=== PATIENT | male | born 1980 | race American Indian/Alaskan Native ===

== ENCOUNTER 2016-11-13 13:33 | Inpatient (IN) | payer MEDICAID, SELFPAY ==
--- NOTE | 2016-11-13 13:36 | EDM.PDOC ---
ED HPI GENERAL MEDICAL PROBLEM - General Chief Complaint: Chest Pain Stated Complaint: BY AMBULANCE Time Seen by Provider: 11/13/16 13:36 Source of Information: Reports: Patient, EMS, RN, RN notes reviewed - History of Present Illness INITIAL COMMENTS - FREE TEXT/NARRATIVE: Arrives from home by ambulance with c/o chest pain. EMS report normal 12 lead EKG in field, and gave aspirin 324mg x1 and SL NTG 0.4mg x3 without relief. Pt reports heavy alcohol drinking x3 straight days and last drank yesterday evening. Today pt reports onset of generalized shakiness, nausea, vomiting, rapid breathing with numbness at the lips and B/L hands, and sharp left upper chest pain. Denies Hx of alcohol withdrawals or Hx of cardiac disease. Admits to Hx of binge alcohol abuse, and anxiety with panic attacks. Denies injury, LOC , blood in emesis or stool, fever, chills, or cough. 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 [No Known Home Meds] 10/16/15 [History] Past Medical History - Past Health History Medical/Surgical History: Denies Medical/Surgical History Other HEENT History: Infection behind his right ear. Other Musculoskeletal History: old left hand fractures Other Dermatologic History: Infection behind his right ear. - Past Surgical History Other Musculoskeletal Surgeries/Procedures:: left hand surgery for fracture repair. Social & Family History - Family History Family Medical History: Noncontributory - Tobacco Use Smoking Status *Q: Never Smoker Years of Tobacco use: 10 Used Tobacco, but Quit: No Second Hand Smoke Exposure: No - Caffeine Use Caffeine Use: Reports: Coffee, Soda - Alcohol Use Alcohol Use History: Yes Days Per Week of Alcohol Use: 1 Number of Drinks Per Day: 6 Total Drinks Per Week: 6 Alcohol Use in Last Twelve Months: Yes Alcohol Use Frequency: Binges - Recreational Drug Use Recreational Drug Use: No - Living Situation & Occupation Living situation: Reports: with family ED ROS GENERAL - Review of Systems Review Of Systems: ROS reveals no pertinent complaints other than HPI. ED EXAM, GENERAL - Physical Exam Exam: See Below Exam Limited By: No limitations General Appearance: alert, WD/WN, no apparent distress, anxious, obese Eye Exam: bilateral eye: EOMI, nystagmus, PERRL Ears: normal external exam, normal canal, hearing grossly normal Nose: normal inspection, normal mucosa, no blood Throat/Mouth: Normal inspection, Normal lips, Normal teeth, Normal gums, Normal oropharynx, Normal voice, No airway compromise, Other (dry oral membranes) Head: atraumatic, normocephalic Neck: normal inspection, supple, non-tender, full range of motion. No: lymphadenopathy (L), lymphadenopathy (R) Respiratory/Chest: no respiratory distress, lungs clear, normal breath sounds, no accessory muscle use, chest non-tender Cardiovascular: normal peripheral pulses, regular rate, rhythm, no edema, no gallop, no JVD, no murmur, no rub GI/Abdominal: normal bowel sounds, soft, no distention, no abnormal bruit, tender (epigastric region). No: guarding, rigid, rebound (Male) Exam: Deferred Rectal (Males) Exam: Deferred Back Exam: normal inspection, full range of motion. No: CVA tenderness (L), CVA tenderness (R) Extremities: normal inspection, normal range of motion, non-tender, normal capillary refill, no pedal edema Neurological: alert, oriented, CN II-XII intact, normal cognition, normal gait, no motor/sensory deficits, other (fine tremor of B/L upper extremities) Psychiatric: anxious Skin Exam: Warm, Dry, Intact, Normal color, No rash EKG INTERPRETATION EKG Date: 11/13/16 Time: 13:44 Rhythm: other (SR) Rate (beats/min): 88 Alanson: normal QRS: other (small Q-wave in lead III) ST-T: other (isolated flat T wave in lead III) QT: prolonged (borderline) Comparison: NA - no prior EKG Course - Vital Signs Last Recorded V/S: Last Vital Signs Temp 36.2 C 11/13/16 13:49 Pulse 80 11/13/16 13:49 Resp 24 H 11/13/16 13:49 BP 129/84 11/13/16 13:49 Pulse Ox 98 11/13/16 13:49 - Orders/Labs/Meds Orders: Active Orders 24 hr Category Date Time Status EKG 12 Lead [EKG Documentation Completion] [RC] STAT Care 11/13/16 13:36 Active Peripheral IV Care [RC] . DIRECTED Care 11/13/16 13:41 Active Chest w Cont [CT] Stat Exams 11/13/16 14:38 Taken Enoxaparin [Lovenox] Med 11/13/16 15:53 Once 100 mg SUBCUT ONETIME ONE Sodium Chloride 0.9% [Saline Flush] Med 11/13/16 13:41 Active 10 ml FLUSH ASDIRECTED PRN Peripheral IV Insertion Adult [OM.PC] Stat Oth 11/13/16 13:40 Ordered Medication Orders Sodium Chloride (Saline Flush) 10 ml FLUSH ASDIRECTED PRN PRN Reason: Keep Vein Open Last Admin: 11/13/16 14:01 Dose: 10 ml Labs: Laboratory Tests 11/13/16 11/13/16 11/13/16 Range/Units 13:43 13:43 13:43 WBC 10.8 H (5.0-10.0) 10^3/uL RBC 4.84 (4.6-6.2) 10^6/uL Hgb 13.8 L (14.0-18.0) g/dL Hct 40.7 (40.0-54.0) % MCV 84.1 (80-100) fL MCH 28.5 (27.0-34.0) pg MCHC 33.9 (33.0-35.0) g/dL Plt Count 277 (150-450) 10^3/uL Neut % (Auto) 75.8 H (42.2-75.2) % Lymph % (Auto) 16.0 L (20.5-50.1) % [place] % (Auto) 7.6 (2-8) % Eos % (Auto) 0.1 L (1.0-3.0) % Baso % (Auto) 0.5 (0.0-1.0) % D-Dimer, Quantitative 1110 H (0-400) ng/mL Sodium 135 (135-145) mmol/L Potassium 3.5 L (3.6-5.0) mmol/L Chloride 101 (101-111) mmol/L Carbon Dioxide 23.0 (21.0-31.0) mmol/L Anion Gap 14.5 BUN 6 L (7-18) mg/dL Creatinine 0.9 (0.6-1.3) mg/dL Est Cr Clr Drug Dosing TNP Estimated GFR (MDRD) > 60 BUN/Creatinine Ratio 6.66 Glucose 102 (74-105) mg/dL Calcium 9.0 (8.4-10.2) mg/dl Magnesium 1.5 L (1.8-2.5) mg/dL Total Bilirubin 1.0 (0.2-1.0) mg/dL AST 37 (10-42) IU/L ALT 30 (10-60) IU/L Alkaline Phosphatase 109 (42-121) IU/L Troponin I < 0.02 (0.00-0.02) ng/ml Total Protein 7.4 (6.7-8.2) g/dl Albumin 3.9 (3.2-5.5) g/dl Globulin 3.5 Albumin/Globulin Ratio 1.11 Amylase 75 (28-100) U/L Lipase 23 (22-51) U/L Urine Color (YELLOW) Urine Appearance (CLEAR) Urine pH (5.0-9.0) Ur Specific Kendall (1.005-1.030) Urine Protein (NEGATIVE) Urine Glucose (UA) (NEGATIVE) Urine Ketones (NEGATIVE) Urine Occult Blood (NEGATIVE) Urine Nitrite (NEGATIVE) Urine Bilirubin (NEGATIVE) Urine Urobilinogen (0.2-1.0) mg/dL Ur Leukocyte Esterase (NEGATIVE) Urine RBC /HPF Urine WBC (0-5/HPF) /HPF Urine Mucus /LPF Urine Other Urine Opiates Screen (NEGATIVE) Ur Oxycodone Screen (NEGATIVE) Urine Methadone Screen (NEGATIVE) Ur Barbiturates Screen (NEGATIVE) U Tricyclic Antidepress (NEGATIVE) Ur Phencyclidine Scrn (NEGATIVE) Ur Amphetamine Screen (NEGATIVE) U Methamphetamines Scrn (NEGATIVE) Urine MDMA Screen (NEGATIVE) U Benzodiazepines Scrn (NEGATIVE) Urine Cocaine Screen (NEGATIVE) U Marijuana (THC) Screen (NEGATIVE) Ethyl Alcohol < 5 mg/dL 11/13/16 11/13/16 Range/Units 13:57 13:57 WBC (5.0-10.0) 10^3/uL RBC (4.6-6.2) 10^6/uL Hgb (14.0-18.0) g/dL Hct (40.0-54.0) % MCV (80-100) fL MCH (27.0-34.0) pg MCHC (33.0-35.0) g/dL Plt Count (150-450) 10^3/uL Neut % (Auto) (42.2-75.2) % Lymph % (Auto) (20.5-50.1) % [place] % (Auto) (2-8) % Eos % (Auto) (1.0-3.0) % Baso % (Auto) (0.0-1.0) % D-Dimer, Quantitative (0-400) ng/mL Sodium (135-145) mmol/L Potassium (3.6-5.0) mmol/L Chloride (101-111) mmol/L Carbon Dioxide (21.0-31.0) mmol/L Anion Gap BUN (7-18) mg/dL Creatinine (0.6-1.3) mg/dL Est Cr Clr Drug Dosing Estimated GFR (MDRD) BUN/Creatinine Ratio Glucose (74-105) mg/dL Calcium (8.4-10.2) mg/dl Magnesium (1.8-2.5) mg/dL Total Bilirubin (0.2-1.0) mg/dL AST (10-42) IU/L ALT (10-60) IU/L Alkaline Phosphatase (42-121) IU/L Troponin I (0.00-0.02) ng/ml Total Protein (6.7-8.2) g/dl Albumin (3.2-5.5) g/dl Globulin Albumin/Globulin Ratio Amylase (28-100) U/L Lipase (22-51) U/L Urine Color Dark yellow (YELLOW) Urine Appearance Clear (CLEAR) Urine pH 7.0 (5.0-9.0) Ur Specific Kendall 1.020 (1.005-1.030) Urine Protein 100 H (NEGATIVE) Urine Glucose (UA) Negative (NEGATIVE) Urine Ketones Trace H (NEGATIVE) Urine Occult Blood Trace-intact H (NEGATIVE) Urine Nitrite Negative (NEGATIVE) Urine Bilirubin Negative (NEGATIVE) Urine Urobilinogen 1.0 (0.2-1.0) mg/dL Ur Leukocyte Esterase Negative (NEGATIVE) Urine RBC 0-5 /HPF Urine WBC 0-5 (0-5/HPF) /HPF Urine Mucus Many H /LPF Urine Other Urine Opiates Screen Negative (NEGATIVE) Ur Oxycodone Screen Negative (NEGATIVE) Urine Methadone Screen Negative (NEGATIVE) Ur Barbiturates Screen Negative (NEGATIVE) U Tricyclic Antidepress Negative (NEGATIVE) Ur Phencyclidine Scrn Negative (NEGATIVE) Ur Amphetamine Screen Negative (NEGATIVE) U Methamphetamines Scrn Positive H (NEGATIVE) Urine MDMA Screen Negative (NEGATIVE) U Benzodiazepines Scrn Positive H (NEGATIVE) Urine Cocaine Screen Negative (NEGATIVE) U Marijuana (THC) Screen Positive H (NEGATIVE) Ethyl Alcohol mg/dL Meds: Medications Generic Name Dose Route Start Last Admin Trade Name Freq PRN Reason Stop Dose Admin Sodium Chloride 10 ml 11/13/16 13:41 11/13/16 14:01 Saline Flush FLUSH 10 ml ASDIRECTED PRN Administration Keep Vein Open Discontinued Medications Generic Name Dose Route Start Last Admin Trade Name Freq PRN Reason Stop Dose Admin Multivitamins/Minerals 10 ml/ 1,011.2 mls @ 999 mls/hr 11/13/16 13:41 14:01 Thiamine HCl 100 mg/ Folic IV 11/13/16 14:41 999 mls/hr Acid 1 mg/ Lactated Ringer's .BOLUS ONE Administration Iopamidol 100 ml 11/13/16 14:37 Isovue-370 (76%) IVPUSH 11/13/16 14:38 ONETIME ONE Lorazepam 1 mg 11/13/16 13:42 11/13/16 14:00 Ativan IVPUSH 11/13/16 13:43 1 mg ONETIME ONE Administration Ondansetron HCl 4 mg 11/13/16 13:42 11/13/16 14:00 Zofran IV 11/13/16 13:43 4 mg ONETIME ONE Administration - Radiology Interpretation Free Text/Narrative:: CXR: no acute C/Pulm. process. CT Chest PE eval: mod.-large B/L PE, see Rad. report. - Re-Assessments/Exams Free Text/Narrative Re-Assessment/Exam: 11/13/16 14:58 I explained the exam findings, results of all diagnostic tests, working diagnosis, and any potential or additionally considered diagnoses, treatment/ disposition plan, self/home care instructions, rational for the diagnosis/ treatment plan/disposition plan, anticipated course of illness, and follow up instructions to the pt and/or pts family or guardian. The pt and/or pts family or guardian acknowledges understanding of the above explanation(s), and of the signs and symptoms which should prompt the return of the pt to the ER should those or any other concerning symptoms develop. Departure - Departure Time of Disposition: 15:57 (admit to Dr. Schroeder) Disposition: Admitted As Inpatient 64 Condition: serious Clinical Impression: Alcohol abuse, Polysubstance abuse Pulmonary emboli Qualifiers: Pulmonary embolism type: other Chronicity: acute Acute cor pulmonale presence: without acute cor pulmonale Qualified Code(s): I26.99 - Other pulmonary embolism without acute cor pulmonale Forms: ED Department Discharge - My Orders Last 24 Hours: My Active Orders 11/13/16 13:36 EKG 12 Lead [EKG Documentation Completion] [RC] STAT 11/13/16 13:40 Peripheral IV Insertion Adult [OM.PC] Stat 11/13/16 13:41 Peripheral IV Care [RC] . DIRECTED Sodium Chloride 0.9% [Saline Flush] 10 ml FLUSH ASDIRECTED PRN 11/13/16 14:38 Chest w Cont [CT] Stat 11/13/16 15:53 Enoxaparin [Lovenox] 100 mg SUBCUT ONETIME ONE - Assessment/Plan Last 24 Hours: My Active Orders 11/13/16 13:36 EKG 12 Lead [EKG Documentation Completion] [RC] STAT 11/13/16 13:40 Peripheral IV Insertion Adult [OM.PC] Stat 11/13/16 13:41 Peripheral IV Care [RC] . DIRECTED Sodium Chloride 0.9% [Saline Flush] 10 ml FLUSH ASDIRECTED PRN 11/13/16 14:38 Chest w Cont [CT] Stat 11/13/16 15:53 Enoxaparin [Lovenox] 100 mg SUBCUT ONETIME ONE
[2016-11-13] MEDS ORDERED: Sodium Chloride 0.9% 10 ML Syringe FLUSH PRN (13:41)
[2016-11-13] MEDS ORDERED: MVI, Adult with Vitamin K 10 ML, Thiamine 100 MG, Folic Acid 1 MG in Lactated Ringers 1... IV ONE ×4 (13:41)
[2016-11-13] MEDS ORDERED: Ondansetron 4 MG/2 ML SDV IV ONE (13:42)
[2016-11-13] MEDS ORDERED: LORazepam 2 MG/ML Syringe IVPUSH ONE (13:42)
[2016-11-13 14:09] LABS: CHLORIDE,CL 101 mmol/L (101-111); SODIUM,NA 135 mmol/L (135-145)
[2016-11-13] MEDS ORDERED: Iopamidol 755 Mg/ML 100 ML Bottle IVPUSH ONE (14:37)
--- NOTE | 2016-11-13 15:34 | CR ---
Clinical history: 36-year-old 230 pound male smoker with unexplained chest pain. INDICATION: AP portable chest film negative. Normal cardiac silhouette without cephalization of vascular flow, signs of alveolar edema or depende nt effusion. AP bony thorax unremarkable. No lung mass, hilar lymphadenopathy or focal lobar pneumonia. No atelectasis/collapse. No pneumothorax.
[2016-11-13] MEDS ORDERED: Enoxaparin 100 MG/1 ML Syringe SUBCUT ONE (15:53)
--- NOTE | 2016-11-13 16:02 | CT ---
Clinical history: 36-year-old 230 pound male smoker with chest pain, shortness of breath and elevate d serum D dimer (1100). Rule out pulmonary embolism or infarct. Scan technique: Volume acquisition of data from the thorax friends chest lung and mediastinum) obtai rome during intravenous administration 75 cc nonionic Isovue 370 contrast (5 cc/s via injector) while the patient was lying supine on the Siemens multi slice CT scanner [place], [place]. All data archived in the PACS system for storage, reformatting, study. Interpretation: Abnormal. 1. *Large filling defects mid level main pulmonary arteries, bilaterally that have the characteristi c appearance of thrombus or pulmonary embolism. 2. Generally poor inspiratory effort but no current signs of associated lobar infiltrate, atelectasi s or peripheral pleural-based infarcts. No dependent pleural effusions. 3. Normal cardiac silhouette without signs of pericardial effusion, cephalization of vascular flow, alveolar edema or pleural effusion. 4. No lung mass or hilar/mediastinal lymphadenopathy. 5. Normal caliber thoracic aorta. Kyphosis and hypertrophic spondylosis dorsal spine. CONCLUSION: Extensive pulmonary artery thrombosis, bilaterally.
[2016-11-13] MEDS ORDERED: Warfarin 5 MG Tab PO ONE (16:55)
[2016-11-13] MEDS ORDERED: Potassium Chloride 10 MEQ Tab.ER PO ONE (17:06)
[2016-11-13] MEDS ORDERED: Sodium Chloride 0.9% 500 ML IV SCH (17:15)
--- NOTE | 2016-11-13 18:13 | HP ---
HISTORY OF PRESENT ILLNESS: Mr. Cardona is a 36-year-old male, who was brought in today because of chest pain. Today, the patient was just sitting, has been having left-sided chest pain and shortness of breath. He called his girlfriend, and girlfriend noticed that the patient sounded short of breath on the phone. Then, ambulance was called and he was brought to the emergency room. Apparently, the patient has been having chest pain since last year, left-sided in location, which he only recollects whenever he drinks alcohol. He denies personal family history of any blood clots. No recent surgery or any immobilization; however, he reports that 2 months ago, he broke his right ankle. He denies any calf pain. He does not have any significant medical history or any medications that he is taking. As for the alcohol use, he drinks around once a month although most of the time, it is still there. The last drink was yesterday, 1 pint of vodka. He denies any alcohol withdrawal in the past. No cough. No palpitations. No constipation, blood stool, or blood urine. Occasional headache which started today. PAST MEDICAL HISTORY: Unremarkable. PAST SURGICAL HISTORY: Noncontributory. FAMILY HISTORY: No family history of any malignancy. REVIEW OF SYSTEMS: Ten systems reviewed and were negative except those mentioned above. ALLERGIES: No known drug allergies. MEDICATIONS: None. PHYSICAL EXAMINATION: Vital Signs: Blood pressure 129/84, heart rate of 80 beats per minute, respirations 24 breaths per minute, oxygen saturation 98%, temperature 36.3. General Appearance: Awake, in distress. Speaking in sentences. HEENT: Normocephalic, atraumatic. Eyes, full EOMs. Neck: No neck masses. Chest: Symmetric chest expansion. Lungs: Bilateral air entry. CVS: Regular rate and rhythm. Abdomen: Soft. Normoactive bowel sounds. Extremities: No edema. Good pulses. Neurologic: No focal deficits. Psychiatric: No behavioral disturbances. LABORATORY AND X-RAY DATA: CBC; WBC 10.8, hemoglobin 13.8, platelets 277. D- dimer 1110. Complete metabolic panel showed normal aminotransferases. Magnesium 1.5, amylase 75, lipase 23. Urine toxicology showed positive for methamphetamines, benzodiazepines, and marijuana. CT scan of the chest showed a large filling defect, mid level, main pulmonary arteries bilaterally, does have characteristic appearance of a thrombus or pulmonary embolism. Chest x-ray showed no acute changes. ASSESSMENT AND PLAN: Chest pain secondary to pulmonary embolism bilaterally. He was given already a dose of Lovenox 100 mg subcutaneously in the emergency room. We will give him a loading dose of Coumadin today and his INR will be followed daily. Bridge Lovenox until INR is therapeutic. We will repeat CBC. Hydrate the patient given that he got contrast from the CAT scan. Advised alcohol cessation given the anticoagulation use. For his alcohol use, we will do alcohol withdrawal protocol. DVT prophylaxis with antiembolic socks. He is already anticoagulated. Code status, full code. GI prophylaxis, omeprazole. We will continue to follow the patient in the medical-surgical bed. [facility] /[id number]
[2016-11-13] MEDS: Sodium Chloride 0.9% 1,000 ML IV SCH (18:20)
[2016-11-13] MEDS: Acetaminophen 500 MG Tab PO PRN (21:20)
[2016-11-14] MEDS: Sodium Chloride 0.9% 1,000 ML IV SCH (02:43)
[2016-11-14 06:28] LABS: CHLORIDE,CL 103 mmol/L (101-111); SODIUM,NA 136 mmol/L (135-145)
[2016-11-14] MEDS: Enoxaparin 100 MG/1 ML Syringe SUBCUT SCH ×2 (10:02→20:34)
--- NOTE | 2016-11-14 10:58 | PCM.PN ---
- General Info Date of Service: 11/14/16 Subjective Update: admitted with PE when presented with SOB. has been in walking boot for r.ankle fx. mild SOB only, started prior to admission, worse with activity, better with rest no associated CP feeling OK, eating well, Functional Status: Reports: pain controlled - Review of Systems General: Denies: Fever Pulmonary: Reports: shortness of breath Cardiovascular: Denies: Chest Pain Gastrointestinal: Denies: Abdominal pain Neurological: Denies: Confusion - Patient Data Vitals - most recent: Last Vital Signs Temp 36.9 C 11/14/16 07:00 Pulse 47 L 11/14/16 07:00 Resp 20 11/14/16 07:00 BP 100/65 11/14/16 07:00 Pulse Ox 100 11/14/16 07:00 Weight - most recent: 99.881 kg I&O - last 24 hours: Intake & Output 11/13/16 11/14/16 11/14/16 22:59 06:59 14:59 Intake Total 100 1434 Output Total 2 Balance 100 1432 Lab Results last 24 hrs: Laboratory Results - last 24 hr 11/14/16 11/14/16 11/14/16 Range/Units 05:52 05:52 05:52 WBC 7.1 (5.0-10.0) 10^3/uL RBC 4.33 L (4.6-6.2) 10^6/uL Hgb 12.4 L (14.0-18.0) g/dL Hct 37.4 L (40.0-54.0) % MCV 86.4 (80-100) fL MCH 28.6 (27.0-34.0) pg MCHC 33.2 (33.0-35.0) g/dL Plt Count 234 (150-450) 10^3/uL PT 9.6 (9.0-12.0) SEC INR 1.0 (0.9-1.2) Sodium 136 (135-145) mmol/L Potassium 3.4 L (3.6-5.0) mmol/L Chloride 103 (101-111) mmol/L Carbon Dioxide 26.0 (21.0-31.0) mmol/L Anion Gap 10.4 BUN 9 (7-18) mg/dL Creatinine 0.9 (0.6-1.3) mg/dL Est Cr Clr Drug Dosing 118.53 mL/min Estimated GFR (MDRD) > 60 Glucose 88 (74-105) mg/dL Calcium 8.4 (8.4-10.2) mg/dl Med Orders - Current: Current Medications Acetaminophen (Tylenol Extra Strength) 500 mg PO QID PRN PRN Reason: Pain/Fever Last Admin: 11/13/16 21:20 Dose: 500 mg Enoxaparin Sodium (Lovenox) 100 mg SUBCUT Q12HR [facility] Last Admin: 11/14/16 10:02 Dose: 100 mg Lorazepam (Ativan) 0 mg PO Q8H PRN; Protocol PRN Reason: Agitation Warfarin Sodium (Pharmacy To Dose - Warfarin) 1 dose .XX ASDIRECTED [facility] Warfarin Sodium (Coumadin) 10 mg PO ONETIME ONE Stop: 11/14/16 14:01 Discontinued Medications Enoxaparin Sodium (Lovenox) 100 mg SUBCUT ONETIME ONE Stop: 11/13/16 15:54 Last Admin: 11/13/16 16:01 Dose: 100 mg Multivitamins/Minerals 10 ml/Thiamine HCl 100 mg/ Folic Acid 1 mg/ Lactated Ringer's 1,011.2 mls @ 999 mls/hr IV .BOLUS ONE Stop: 11/13/16 14:41 Last Admin: 11/13/16 14:01 Dose: 999 mls/hr Sodium Chloride (Normal Saline) 500 mls @ 100 mls/hr IV ASDIRECTED [facility] Magnesium Sulfate/Dextrose 1 (gm/ Premix) 100 mls @ 100 mls/hr IV ONETIME ONE Stop: 11/13/16 18:05 Last Admin: 11/13/16 18:02 Dose: 100 mls/hr Sodium Chloride (Normal Saline) 1,000 mls @ 125 mls/hr IV ASDIRECTED [facility] Last Admin: 11/14/16 02:43 Dose: 125 mls/hr Iopamidol (Isovue-370 (76%)) 100 ml IVPUSH ONETIME ONE Stop: 11/13/16 14:38 Last Admin: 11/13/16 14:37 Dose: 100 ml Lorazepam (Ativan) 1 mg IVPUSH ONETIME ONE Stop: 11/13/16 13:43 Last Admin: 11/13/16 14:00 Dose: 1 mg Ondansetron HCl (Zofran) 4 mg IV ONETIME ONE Stop: 11/13/16 13:43 Last Admin: 11/13/16 14:00 Dose: 4 mg Potassium Chloride (Klor-Con 10) 10 meq PO ONETIME ONE Stop: 11/13/16 17:07 Last Admin: 11/13/16 18:01 Dose: 10 meq Sodium Chloride (Saline Flush) 10 ml FLUSH ASDIRECTED PRN PRN Reason: Keep Vein Open Last Admin: 11/13/16 14:01 Dose: 10 ml Warfarin Sodium (Coumadin) 5 mg PO ONETIME ONE Stop: 11/13/16 16:56 Last Admin: 11/13/16 18:01 Dose: 5 mg - Exam Quality Assessment: No: supplemental oxygen General: alert, oriented Neck: supple Lungs: Clear to auscultation, Normal respiratory effort Cardiovascular: Regular Rate, Regular Rhythm Abdomen: bowel sounds present, soft, no tenderness, no distension Back Exam: normal inspection Extremities: no edema - Problem List & Annotations (1) Alcohol abuse SNOMED Code(s): 92817435 Code(s): F10.10 - ALCOHOL ABUSE, UNCOMPLICATED Status: Acute Current Visit: Yes (2) Pulmonary emboli SNOMED Code(s): 78001212, 57707927 Code(s): I26.99 - OTHER PULMONARY EMBOLISM WITHOUT ACUTE COR PULMONALE Status: Acute Current Visit: Yes Qualifiers: Pulmonary embolism type: other Chronicity: acute Acute cor pulmonale presence: without acute cor pulmonale Qualified Code(s): I26.99 - Other pulmonary embolism without acute cor pulmonale - Problem List Review Problem List Initiated/Reviewed/Updated: Yes - My Orders Last 24 Hours: My Active Orders 11/14/16 10:49 Venous Duplex Legs Bi [CV] Routine 11/15/16 05:15 BASIC METABOLIC PANEL,BMP [CHEM] AM CBC WITH AUTO DIFF [HEME] AM INR,PT,PROTHROMBIN TIME [COAG] AM - Plan Plan:: 1. acute pulmonary embolism The patient has no family history for blood clots He has been wearing a right walking boot for right lower extremity fracture, he has been using that for about 2 months I will obtain lower extremity ultrasound to evaluate for DVT I do not think that the echocardiogram would change the management the patient will also need hypercoagulable workup as an outpatient Discussed the treatment with Lovenox and oral medications Discussed Coumadin and then you were anticoagulants including xarelto the patient opted for Coumadin treatment Treat with Lovenox until INR becomes therapeutic Check INR daily dose Coumadin for target INR 2-3 2.history of alcohol use This appears to binge drinking other than chronic continuous use No apparent withdrawal symptoms
[2016-11-14] MEDS: Sodium Chloride 0.9% 10 ML Syringe FLUSH PRN (12:43)
--- NOTE | 2016-11-14 12:44 | US ---
Clinical history: 36-year-old hospitalized male with recently diagnosed "pulmonary embolism". Rule out lower extremity DVT. Interpretation: Negative exam. No sign of intraluminal echogenic thrombus and normal compressibility deep veins both groin, thigh a nd knee with satisfactory augmentation venous waveforms demonstrated respectively in the peroneal an d posterior tibial veins of both calves and proximally in the popliteal and femoral veins. CONCLUSION: No current sonographic evidence deep vein thrombosis lower extremities this patient with pulmonary embolic disease.
[2016-11-14] MEDS ORDERED: Warfarin 5 MG Tab PO ONE (14:00)
[2016-11-14] MEDS ORDERED: Warfarin 2.5 MG Tab PO ONE (14:00)
[2016-11-14] MEDS: LORazepam 0.5 MG Tab PO PRN (20:35)
[2016-11-15 06:42] LABS: CHLORIDE,CL 106 mmol/L (101-111); SODIUM,NA 137 mmol/L (135-145)
[2016-11-15] MEDS: Enoxaparin 100 MG/1 ML Syringe SUBCUT SCH ×2 (08:44→20:26)
--- NOTE | 2016-11-15 10:10 | PCM.PN ---
- General Info Date of Service: 11/15/16 Admission Dx/Problem (Free Text): shortness of breath Subjective Update: admitted with PE when presented with SOB. has been in walking boot for r.ankle fx. SOB is better, started prior to admission, worse with activity, better with rest no associated CP feeling OK, eating well no black or bloody BM Functional Status: Reports: pain controlled, tolerating diet, ambulating - Review of Systems General: Denies: Fever, Weakness Pulmonary: Reports: shortness of breath (mild) Cardiovascular: Denies: Chest Pain, Palpitations Genitourinary: Denies: dysuria Neurological: Denies: Confusion Psychiatric: Denies: depression - Patient Data Vitals - most recent: Last Vital Signs Temp 37.0 C 11/15/16 07:00 Pulse 51 L 11/15/16 07:00 Resp 16 11/15/16 07:00 BP 118/75 11/15/16 07:00 Pulse Ox 96 11/15/16 07:00 Weight - most recent: 99.881 kg I&O - last 24 hours: Intake & Output 11/14/16 11/15/16 11/15/16 22:59 06:59 14:59 Intake Total 250 360 Balance 250 360 Lab Results last 24 hrs: Laboratory Results - last 24 hr 11/15/16 11/15/16 11/15/16 Range/Units 06:13 06:13 06:13 WBC 8.9 (5.0-10.0) 10^3/uL RBC 4.42 L (4.6-6.2) 10^6/uL Hgb 12.5 L (14.0-18.0) g/dL Hct 38.1 L (40.0-54.0) % MCV 86.2 (80-100) fL MCH 28.3 (27.0-34.0) pg MCHC 32.8 L (33.0-35.0) g/dL Plt Count 240 (150-450) 10^3/uL Neut % (Auto) 52.7 (42.2-75.2) % Lymph % (Auto) 33.6 (20.5-50.1) % [place] % (Auto) 8.6 H (2-8) % Eos % (Auto) 4.6 H (1.0-3.0) % Baso % (Auto) 0.5 (0.0-1.0) % PT 11.5 (9.0-12.0) SEC INR 1.1 (0.9-1.2) Sodium 137 (135-145) mmol/L Potassium 3.9 (3.6-5.0) mmol/L Chloride 106 (101-111) mmol/L Carbon Dioxide 24.0 (21.0-31.0) mmol/L Anion Gap 10.9 BUN 8 (7-18) mg/dL Creatinine 0.8 (0.6-1.3) mg/dL Est Cr Clr Drug Dosing 133.34 mL/min Estimated GFR (MDRD) > 60 Glucose 96 (74-105) mg/dL Calcium 8.6 (8.4-10.2) mg/dl Med Orders - Current: Current Medications Acetaminophen (Tylenol Extra Strength) 500 mg PO QID PRN PRN Reason: Pain/Fever Last Admin: 11/13/16 21:20 Dose: 500 mg Enoxaparin Sodium (Lovenox) 100 mg SUBCUT Q12HR [facility] Last Admin: 11/15/16 08:44 Dose: 100 mg Lorazepam (Ativan) 0 mg PO Q8H PRN; Protocol PRN Reason: Agitation Last Admin: 11/14/16 20:35 Dose: 0.5 mg Sodium Chloride (Saline Flush) 10 ml FLUSH ASDIRECTED PRN PRN Reason: Keep Vein Open Last Admin: 11/14/16 12:43 Dose: 10 ml Warfarin Sodium (Pharmacy To Dose - Warfarin) 1 dose .XX ASDIRECTED [facility] Warfarin Sodium (Coumadin) 10 mg PO ONETIME ONE Stop: 11/15/16 14:01 Discontinued Medications Enoxaparin Sodium (Lovenox) 100 mg SUBCUT ONETIME ONE Stop: 11/13/16 15:54 Last Admin: 11/13/16 16:01 Dose: 100 mg Multivitamins/Minerals 10 ml/Thiamine HCl 100 mg/ Folic Acid 1 mg/ Lactated Ringer's 1,011.2 mls @ 999 mls/hr IV .BOLUS ONE Stop: 11/13/16 14:41 Last Admin: 11/13/16 14:01 Dose: 999 mls/hr Sodium Chloride (Normal Saline) 500 mls @ 100 mls/hr IV ASDIRECTED [facility] Magnesium Sulfate/Dextrose 1 (gm/ Premix) 100 mls @ 100 mls/hr IV ONETIME ONE Stop: 11/13/16 18:05 Last Admin: 11/13/16 18:02 Dose: 100 mls/hr Sodium Chloride (Normal Saline) 1,000 mls @ 125 mls/hr IV ASDIRECTED [facility] Last Admin: 11/14/16 02:43 Dose: 125 mls/hr Iopamidol (Isovue-370 (76%)) 100 ml IVPUSH ONETIME ONE Stop: 11/13/16 14:38 Last Admin: 11/13/16 14:37 Dose: 100 ml Lorazepam (Ativan) 1 mg IVPUSH ONETIME ONE Stop: 11/13/16 13:43 Last Admin: 11/13/16 14:00 Dose: 1 mg Ondansetron HCl (Zofran) 4 mg IV ONETIME ONE Stop: 11/13/16 13:43 Last Admin: 11/13/16 14:00 Dose: 4 mg Potassium Chloride (Klor-Con 10) 10 meq PO ONETIME ONE Stop: 11/13/16 17:07 Last Admin: 11/13/16 18:01 Dose: 10 meq Sodium Chloride (Saline Flush) 10 ml FLUSH ASDIRECTED PRN PRN Reason: Keep Vein Open Last Admin: 11/13/16 14:01 Dose: 10 ml Warfarin Sodium (Coumadin) 5 mg PO ONETIME ONE Stop: 11/13/16 16:56 Last Admin: 11/13/16 18:01 Dose: 5 mg Warfarin Sodium (Coumadin) 10 mg PO ONETIME ONE Stop: 11/14/16 14:01 Last Admin: 11/14/16 14:23 Dose: 10 mg - Exam Quality Assessment: supplemental oxygen General: alert, oriented HEENT: EOMI Neck: supple Lungs: Clear to auscultation, Normal respiratory effort Cardiovascular: Regular Rate, Regular Rhythm Abdomen: bowel sounds present, soft, no tenderness Extremities: no edema - Problem List & Annotations (1) Alcohol abuse SNOMED Code(s): 71216966 Code(s): F10.10 - ALCOHOL ABUSE, UNCOMPLICATED Status: Acute Current Visit: Yes (2) Pulmonary emboli SNOMED Code(s): 32358187, 02596964 Code(s): I26.99 - OTHER PULMONARY EMBOLISM WITHOUT ACUTE COR PULMONALE Status: Acute Current Visit: Yes Qualifiers: Pulmonary embolism type: other Chronicity: acute Acute cor pulmonale presence: without acute cor pulmonale Qualified Code(s): I26.99 - Other pulmonary embolism without acute cor pulmonale - Problem List Review Problem List Initiated/Reviewed/Updated: Yes - My Orders Last 24 Hours: My Active Orders 11/14/16 10:49 Venous Duplex Legs Bi [CV] Routine 11/14/16 12:03 Sodium Chloride 0.9% [Saline Flush] 10 ml FLUSH ASDIRECTED PRN Convert IV to Saline Lock [OM.PC] Routine - Plan Plan:: 1. acute bilateral pulmonary embolism The patient has no family history for blood clots He has been wearing a walking boot for right lower extremity fracture, he has been using that for about 2 months lower extremity ultrasound to evaluate for DVT was negative b/l I do not think that the echocardiogram would change the management the patient will also need hypercoagulable workup as an outpatient Continue treatment with Lovenox the patient opted for Coumadin treatment Treat with Lovenox until INR becomes therapeutic Check INR daily dose Coumadin for target INR 2-3 2.history of alcohol use This appears to binge drinking other than chronic continuous use No apparent withdrawal symptoms
[2016-11-15] MEDS ORDERED: Warfarin 5 MG Tab PO ONE (14:00)
[2016-11-15] MEDS: Acetaminophen 500 MG Tab PO PRN (19:35)
[2016-11-15] MEDS: LORazepam 0.5 MG Tab PO PRN (22:01)
[2016-11-15] MEDS: amLODIPine 5 MG Tab PO SCH (22:39)
[2016-11-16] MEDS: amLODIPine 5 MG Tab PO SCH (08:37)
[2016-11-16] MEDS: Enoxaparin 100 MG/1 ML Syringe SUBCUT SCH ×2 (08:37→21:05)
--- NOTE | 2016-11-16 10:33 | PCM.PN ---
- General Info Date of Service: 11/16/16 Admission Dx/Problem (Free Text): shortness of breath Subjective Update: admitted with PE when presented with SOB. had been in walking boot for r.ankle fx. SOB is better, started prior to admission, worse with activity, better with rest no associated CP feeling anxious, no black or bloody BM noted to have hypertension he says he has a history of hypertension and was on blood pressure medication in the past Functional Status: Reports: pain controlled - Review of Systems General: Denies: Fever, Weakness Pulmonary: Denies: shortness of breath Cardiovascular: Denies: Chest Pain, Palpitations Gastrointestinal: Denies: Abdominal pain Neurological: Denies: Confusion, Dizziness Psychiatric: Reports: anxiety - Patient Data Vitals - most recent: Last Vital Signs Temp 37.0 C 11/16/16 07:28 Pulse 74 11/16/16 07:28 Resp 20 11/16/16 07:28 BP 124/91 H 11/16/16 08:37 Pulse Ox 98 11/16/16 07:28 Weight - most recent: 99.881 kg I&O - last 24 hours: Intake & Output 11/15/16 11/16/16 11/16/16 22:59 06:59 14:59 Intake Total 550 240 Balance 550 240 Lab Results last 24 hrs: Laboratory Results - last 24 hr 11/16/16 Range/Units 05:55 PT 16.6 H (9.0-12.0) SEC INR 1.6 H (0.9-1.2) Med Orders - Current: Current Medications Acetaminophen (Tylenol Extra Strength) 500 mg PO QID PRN PRN Reason: Pain/Fever Last Admin: 11/15/16 19:35 Dose: 500 mg Amlodipine Besylate (Norvasc) 5 mg PO DAILY [facility]IL[facility] Last Admin: 11/16/16 08:37 Dose: 5 mg Enoxaparin Sodium (Lovenox) 100 mg SUBCUT Q12HR [facility] Last Admin: 11/16/16 08:37 Dose: 100 mg Lorazepam (Ativan) 0 mg PO Q8H PRN; Protocol PRN Reason: Agitation Last Admin: 11/15/16 22:01 Dose: 0.5 mg Lorazepam (Ativan) 1 mg PO Q6H PRN PRN Reason: Anxiety Sodium Chloride (Saline Flush) 10 ml FLUSH ASDIRECTED PRN PRN Reason: Keep Vein Open Last Admin: 11/14/16 12:43 Dose: 10 ml Warfarin Sodium (Pharmacy To Dose - Warfarin) 1 dose .XX ASDIRECTED [facility] Warfarin Sodium (Coumadin) 7.5 mg PO ONETIME ONE Stop: 11/16/16 14:01 Discontinued Medications Enoxaparin Sodium (Lovenox) 100 mg SUBCUT ONETIME ONE Stop: 11/13/16 15:54 Last Admin: 11/13/16 16:01 Dose: 100 mg Multivitamins/Minerals 10 ml/Thiamine HCl 100 mg/ Folic Acid 1 mg/ Lactated Ringer's 1,011.2 mls @ 999 mls/hr IV .BOLUS ONE Stop: 11/13/16 14:41 Last Admin: 11/13/16 14:01 Dose: 999 mls/hr Sodium Chloride (Normal Saline) 500 mls @ 100 mls/hr IV ASDIRECTED [facility] Magnesium Sulfate/Dextrose 1 (gm/ Premix) 100 mls @ 100 mls/hr IV ONETIME ONE Stop: 11/13/16 18:05 Last Admin: 11/13/16 18:02 Dose: 100 mls/hr Sodium Chloride (Normal Saline) 1,000 mls @ 125 mls/hr IV ASDIRECTED [facility] Last Admin: 11/14/16 02:43 Dose: 125 mls/hr Iopamidol (Isovue-370 (76%)) 100 ml IVPUSH ONETIME ONE Stop: 11/13/16 14:38 Last Admin: 11/13/16 14:37 Dose: 100 ml Lorazepam (Ativan) 1 mg IVPUSH ONETIME ONE Stop: 11/13/16 13:43 Last Admin: 11/13/16 14:00 Dose: 1 mg Ondansetron HCl (Zofran) 4 mg IV ONETIME ONE Stop: 11/13/16 13:43 Last Admin: 11/13/16 14:00 Dose: 4 mg Potassium Chloride (Klor-Con 10) 10 meq PO ONETIME ONE Stop: 11/13/16 17:07 Last Admin: 11/13/16 18:01 Dose: 10 meq Sodium Chloride (Saline Flush) 10 ml FLUSH ASDIRECTED PRN PRN Reason: Keep Vein Open Last Admin: 11/13/16 14:01 Dose: 10 ml Warfarin Sodium (Coumadin) 5 mg PO ONETIME ONE Stop: 11/13/16 16:56 Last Admin: 11/13/16 18:01 Dose: 5 mg Warfarin Sodium (Coumadin) 10 mg PO ONETIME ONE Stop: 11/14/16 14:01 Last Admin: 11/14/16 14:23 Dose: 10 mg Warfarin Sodium (Coumadin) 10 mg PO ONETIME ONE Stop: 11/15/16 14:01 Last Admin: 11/15/16 14:02 Dose: 10 mg - Exam General: alert, oriented Neck: supple Lungs: Clear to auscultation, Normal respiratory effort Cardiovascular: Regular Rate, Regular Rhythm Abdomen: bowel sounds present, soft, no tenderness, no distension Back Exam: normal inspection Extremities: no edema Skin: warm, dry, intact Neurological: no new focal deficit Psy/Mental Status: alert, normal affect, normal mood - Problem List & Annotations (1) Alcohol abuse SNOMED Code(s): 89698823 Code(s): F10.10 - ALCOHOL ABUSE, UNCOMPLICATED Status: Acute Current Visit: Yes (2) Pulmonary emboli SNOMED Code(s): 90554685, 28824459 Code(s): I26.99 - OTHER PULMONARY EMBOLISM WITHOUT ACUTE COR PULMONALE Status: Acute Current Visit: Yes Qualifiers: Pulmonary embolism type: other Chronicity: acute Acute cor pulmonale presence: without acute cor pulmonale Qualified Code(s): I26.99 - Other pulmonary embolism without acute cor pulmonale (3) Hypertension SNOMED Code(s): 58182440 Code(s): I10 - ESSENTIAL (PRIMARY) HYPERTENSION Status: Acute Current Visit: Yes (4) Anxiety SNOMED Code(s): 43781951 Code(s): F41.9 - ANXIETY DISORDER, UNSPECIFIED Status: Acute Current Visit: Yes - Problem List Review Problem List Initiated/Reviewed/Updated: Yes - My Orders Last 24 Hours: My Active Orders 11/15/16 22:30 amLODIPine [Norvasc] 5 mg PO DAILY 11/16/16 10:28 LORazepam [Ativan] 1 mg PO Q6H PRN - Plan Plan:: 1. acute bilateral pulmonary embolism The patient has no family history for blood clots He has been wearing a walking boot for right lower extremity fracture, he has been using that for about 2 months lower extremity ultrasound to evaluate for DVT was negative b/l I do not think that the echocardiogram would change the management the patient will need hypercoagulable workup as an outpatient started on Coumadin Coumadin treatment Treat with Lovenox until INR becomes therapeutic Check INR daily - today INR is still subtherapeutic dose Coumadin for target INR 2-3 2.history of alcohol use This appears to binge drinking other than chronic continuous use No apparent withdrawal symptoms he is feeling anxious, start Ativan p.r.n. 3. hypertension Start Norvasc We'll follow blood pressures
[2016-11-16] MEDS: LORazepam 1 MG Tab PO PRN ×2 (11:19→21:00)
[2016-11-16] MEDS ORDERED: Warfarin 2.5 MG Tab PO ONE (14:00)
[2016-11-17] MEDS: Enoxaparin 100 MG/1 ML Syringe SUBCUT SCH ×2 (09:39→20:58)
[2016-11-17] MEDS: amLODIPine 5 MG Tab PO SCH (09:39)
[2016-11-17] MEDS: Sodium Chloride 0.9% 10 ML Syringe FLUSH PRN ×2 (09:40→09:42)
--- NOTE | 2016-11-17 09:45 | PCM.PN ---
- General Info Date of Service: 11/17/16 Admission Dx/Problem (Free Text): shortness of breath Subjective Update: admitted with PE when presented with SOB. had been in walking boot for r.ankle fx. SOB is mild, started prior to admission, worse with activity, better with rest no associated CP feeling anxious, tried ativan no black or bloody BM noted to have hypertension - started norvasc - Review of Systems General: Denies: Fever, Fatigue Pulmonary: Reports: shortness of breath (mild) Cardiovascular: Denies: Chest Pain Gastrointestinal: Denies: Abdominal pain, Constipation Genitourinary: Denies: dysuria - Patient Data Vitals - most recent: Last Vital Signs Temp 36.4 C 11/17/16 07:00 Pulse 76 11/17/16 07:00 Resp 16 11/17/16 07:00 BP 114/77 11/17/16 09:39 Pulse Ox 99 11/17/16 07:00 Weight - most recent: 99.881 kg I&O - last 24 hours: Intake & Output 11/16/16 11/17/16 11/17/16 22:59 06:59 14:59 Intake Total 240 Balance 240 Lab Results last 24 hrs: Laboratory Results - last 24 hr 11/17/16 Range/Units 06:00 PT 18.1 H (9.0-12.0) SEC INR 1.8 H (0.9-1.2) Med Orders - Current: Current Medications Acetaminophen (Tylenol Extra Strength) 500 mg PO QID PRN PRN Reason: Pain/Fever Last Admin: 11/15/16 19:35 Dose: 500 mg Amlodipine Besylate (Norvasc) 5 mg PO DAILY [facility] Last Admin: 11/17/16 09:39 Dose: 5 mg Enoxaparin Sodium (Lovenox) 100 mg SUBCUT Q12HR [facility] Last Admin: 11/17/16 09:39 Dose: 100 mg Lorazepam (Ativan) 0 mg PO Q8H PRN; Protocol PRN Reason: Agitation Last Admin: 11/15/16 22:01 Dose: 0.5 mg Lorazepam (Ativan) 1 mg PO Q6H PRN PRN Reason: Anxiety Last Admin: 11/16/16 21:00 Dose: 1 mg Sodium Chloride (Saline Flush) 10 ml FLUSH ASDIRECTED PRN PRN Reason: Keep Vein Open Last Admin: 11/17/16 09:40 Dose: 10 ml Warfarin Sodium (Pharmacy To Dose - Warfarin) 1 dose .XX ASDIRECTED [facility] Discontinued Medications Enoxaparin Sodium (Lovenox) 100 mg SUBCUT ONETIME ONE Stop: 11/13/16 15:54 Last Admin: 11/13/16 16:01 Dose: 100 mg Multivitamins/Minerals 10 ml/Thiamine HCl 100 mg/ Folic Acid 1 mg/ Lactated Ringer's 1,011.2 mls @ 999 mls/hr IV .BOLUS ONE Stop: 11/13/16 14:41 Last Admin: 11/13/16 14:01 Dose: 999 mls/hr Sodium Chloride (Normal Saline) 500 mls @ 100 mls/hr IV ASDIRECTED [facility] Magnesium Sulfate/Dextrose 1 (gm/ Premix) 100 mls @ 100 mls/hr IV ONETIME ONE Stop: 11/13/16 18:05 Last Admin: 11/13/16 18:02 Dose: 100 mls/hr Sodium Chloride (Normal Saline) 1,000 mls @ 125 mls/hr IV ASDIRECTED [facility] Last Admin: 11/14/16 02:43 Dose: 125 mls/hr Iopamidol (Isovue-370 (76%)) 100 ml IVPUSH ONETIME ONE Stop: 11/13/16 14:38 Last Admin: 11/13/16 14:37 Dose: 100 ml Lorazepam (Ativan) 1 mg IVPUSH ONETIME ONE Stop: 11/13/16 13:43 Last Admin: 11/13/16 14:00 Dose: 1 mg Ondansetron HCl (Zofran) 4 mg IV ONETIME ONE Stop: 11/13/16 13:43 Last Admin: 11/13/16 14:00 Dose: 4 mg Potassium Chloride (Klor-Con 10) 10 meq PO ONETIME ONE Stop: 11/13/16 17:07 Last Admin: 11/13/16 18:01 Dose: 10 meq Sodium Chloride (Saline Flush) 10 ml FLUSH ASDIRECTED PRN PRN Reason: Keep Vein Open Last Admin: 11/13/16 14:01 Dose: 10 ml Warfarin Sodium (Coumadin) 5 mg PO ONETIME ONE Stop: 11/13/16 16:56 Last Admin: 11/13/16 18:01 Dose: 5 mg Warfarin Sodium (Coumadin) 10 mg PO ONETIME ONE Stop: 11/14/16 14:01 Last Admin: 11/14/16 14:23 Dose: 10 mg Warfarin Sodium (Coumadin) 10 mg PO ONETIME ONE Stop: 11/15/16 14:01 Last Admin: 11/15/16 14:02 Dose: 10 mg Warfarin Sodium (Coumadin) 7.5 mg PO ONETIME ONE Stop: 11/16/16 14:01 Last Admin: 11/16/16 13:55 Dose: 7.5 mg - Exam Quality Assessment: No: supplemental oxygen General: alert, oriented Neck: supple Lungs: Clear to auscultation, Normal respiratory effort Cardiovascular: Regular Rate, Regular Rhythm Abdomen: bowel sounds present, soft, no tenderness, no distension Extremities: no edema - Problem List & Annotations (1) Alcohol abuse SNOMED Code(s): 18397644 Code(s): F10.10 - ALCOHOL ABUSE, UNCOMPLICATED Status: Acute Current Visit: Yes (2) Pulmonary emboli SNOMED Code(s): 11186029, 09057184 Code(s): I26.99 - OTHER PULMONARY EMBOLISM WITHOUT ACUTE COR PULMONALE Status: Acute Current Visit: Yes Qualifiers: Pulmonary embolism type: other Chronicity: acute Acute cor pulmonale presence: without acute cor pulmonale Qualified Code(s): I26.99 - Other pulmonary embolism without acute cor pulmonale (3) Hypertension SNOMED Code(s): 43524836 Code(s): I10 - ESSENTIAL (PRIMARY) HYPERTENSION Status: Acute Current Visit: Yes (4) Anxiety SNOMED Code(s): 96839744 Code(s): F41.9 - ANXIETY DISORDER, UNSPECIFIED Status: Acute Current Visit: Yes - Problem List Review Problem List Initiated/Reviewed/Updated: Yes - My Orders Last 24 Hours: My Active Orders 11/16/16 10:28 LORazepam [Ativan] 1 mg PO Q6H PRN 11/18/16 05:15 BASIC METABOLIC PANEL,BMP [CHEM] AM CBC WITH AUTO DIFF [HEME] AM 11/19/16 05:11 INR,PT,PROTHROMBIN TIME [COAG] AM 11/20/16 05:11 INR,PT,PROTHROMBIN TIME [COAG] AM 11/21/16 05:11 INR,PT,PROTHROMBIN TIME [COAG] AM - Plan Plan:: 1. acute bilateral pulmonary embolism The patient has no family history for blood clots He has been wearing a walking boot for right lower extremity fracture, he has been using that for about 2 months lower extremity ultrasound to evaluate for DVT was negative b/l I do not think that the echocardiogram would change the management the patient will need hypercoagulable workup as an outpatient started on Coumadin Coumadin treatment Treat with Lovenox until INR becomes therapeutic Check INR daily - today INR is still subtherapeutic INR 1.8 dose Coumadin for target INR 2-3 2. history of alcohol use This appears to binge drinking other than chronic continuous use No apparent withdrawal symptoms he is feeling anxious, started Ativan p.r.n. 3. hypertension Started Norvas We'll follow blood pressures
[2016-11-17] MEDS ORDERED: Warfarin 2.5 MG Tab PO ONE (14:00)
[2016-11-18 06:59] LABS: CHLORIDE,CL 107 mmol/L (101-111); SODIUM,NA 135 mmol/L (135-145)
[2016-11-18] MEDS: Enoxaparin 100 MG/1 ML Syringe SUBCUT SCH (09:29)
[2016-11-18] MEDS: amLODIPine 5 MG Tab PO SCH (09:30)
--- NOTE | 2016-11-18 09:52 | PCM.PN ---
- General Info Date of Service: 11/18/16 Admission Dx/Problem (Free Text): shortness of breath Subjective Update: admitted with PE when presented with SOB. had been in walking boot for r.ankle fx. SOB has resolved, started prior to admission, was worse with activity, better with rest no associated CP feeling anxious noted to have hypertension - started norvasc could not sleep Functional Status: Reports: pain controlled, tolerating diet - Review of Systems General: Denies: Fever Pulmonary: Denies: shortness of breath Cardiovascular: Denies: Chest Pain Gastrointestinal: Denies: Abdominal pain Neurological: Denies: Confusion Psychiatric: Denies: depression - Patient Data Vitals - most recent: Last Vital Signs Temp 36.7 C 11/18/16 07:15 Pulse 60 11/18/16 07:15 Resp 20 11/18/16 07:15 BP 123/79 11/18/16 09:30 Pulse Ox 100 11/18/16 07:15 Weight - most recent: 99.881 kg I&O - last 24 hours: Intake & Output 11/17/16 11/18/16 11/18/16 22:59 06:59 14:59 Intake Total 590 350 Output Total 150 1 Balance 440 349 Lab Results last 24 hrs: Laboratory Results - last 24 hr 11/18/16 11/18/16 11/18/16 Range/Units 06:10 06:10 06:10 WBC 10.9 H (5.0-10.0) 10^3/uL RBC 5.08 (4.6-6.2) 10^6/uL Hgb 14.2 (14.0-18.0) g/dL Hct 43.7 (40.0-54.0) % MCV 86.0 (80-100) fL MCH 28.0 (27.0-34.0) pg MCHC 32.5 L (33.0-35.0) g/dL Plt Count 310 (150-450) 10^3/uL Neut % (Auto) 57.2 (42.2-75.2) % Lymph % (Auto) 29.2 (20.5-50.1) % [place] % (Auto) 8.4 H (2-8) % Eos % (Auto) 4.9 H (1.0-3.0) % Baso % (Auto) 0.3 (0.0-1.0) % PT 16.4 H (9.0-12.0) SEC INR 1.6 H (0.9-1.2) Sodium 135 (135-145) mmol/L Potassium 4.2 (3.6-5.0) mmol/L Chloride 107 (101-111) mmol/L Carbon Dioxide 22.0 (21.0-31.0) mmol/L Anion Gap 10.2 BUN 14 (7-18) mg/dL Creatinine 0.8 (0.6-1.3) mg/dL Est Cr Clr Drug Dosing 133.34 mL/min Estimated GFR (MDRD) > 60 Glucose 89 (74-105) mg/dL Calcium 9.1 (8.4-10.2) mg/dl Med Orders - Current: Current Medications Acetaminophen (Tylenol Extra Strength) 500 mg PO QID PRN PRN Reason: Pain/Fever Last Admin: 11/15/16 19:35 Dose: 500 mg Amlodipine Besylate (Norvasc) 5 mg PO DAILY [facility] Last Admin: 11/18/16 09:30 Dose: 5 mg Enoxaparin Sodium (Lovenox) 100 mg SUBCUT Q12HR [facility] Last Admin: 11/18/16 09:29 Dose: 100 mg Lorazepam (Ativan) 1 mg PO Q6H PRN PRN Reason: Anxiety Last Admin: 11/16/16 21:00 Dose: 1 mg Warfarin Sodium (Pharmacy To Dose - Warfarin) 1 dose .XX ASDIRECTED [facility] Discontinued Medications Enoxaparin Sodium (Lovenox) 100 mg SUBCUT ONETIME ONE Stop: 11/13/16 15:54 Last Admin: 11/13/16 16:01 Dose: 100 mg Multivitamins/Minerals 10 ml/Thiamine HCl 100 mg/ Folic Acid 1 mg/ Lactated Ringer's 1,011.2 mls @ 999 mls/hr IV .BOLUS ONE Stop: 11/13/16 14:41 Last Admin: 11/13/16 14:01 Dose: 999 mls/hr Sodium Chloride (Normal Saline) 500 mls @ 100 mls/hr IV ASDIRECTED [facility] Magnesium Sulfate/Dextrose 1 (gm/ Premix) 100 mls @ 100 mls/hr IV ONETIME ONE Stop: 11/13/16 18:05 Last Admin: 11/13/16 18:02 Dose: 100 mls/hr Sodium Chloride (Normal Saline) 1,000 mls @ 125 mls/hr IV ASDIRECTED [facility] Last Admin: 11/14/16 02:43 Dose: 125 mls/hr Iopamidol (Isovue-370 (76%)) 100 ml IVPUSH ONETIME ONE Stop: 11/13/16 14:38 Last Admin: 11/13/16 14:37 Dose: 100 ml Lorazepam (Ativan) 1 mg IVPUSH ONETIME ONE Stop: 11/13/16 13:43 Last Admin: 11/13/16 14:00 Dose: 1 mg Lorazepam (Ativan) 0 mg PO Q8H PRN; Protocol PRN Reason: Agitation Last Admin: 11/15/16 22:01 Dose: 0.5 mg Ondansetron HCl (Zofran) 4 mg IV ONETIME ONE Stop: 11/13/16 13:43 Last Admin: 11/13/16 14:00 Dose: 4 mg Potassium Chloride (Klor-Con 10) 10 meq PO ONETIME ONE Stop: 11/13/16 17:07 Last Admin: 11/13/16 18:01 Dose: 10 meq Sodium Chloride (Saline Flush) 10 ml FLUSH ASDIRECTED PRN PRN Reason: Keep Vein Open Last Admin: 11/13/16 14:01 Dose: 10 ml Sodium Chloride (Saline Flush) 10 ml FLUSH ASDIRECTED PRN PRN Reason: Keep Vein Open Last Admin: 11/17/16 09:40 Dose: 10 ml Warfarin Sodium (Coumadin) 5 mg PO ONETIME ONE Stop: 11/13/16 16:56 Last Admin: 11/13/16 18:01 Dose: 5 mg Warfarin Sodium (Coumadin) 10 mg PO ONETIME ONE Stop: 11/14/16 14:01 Last Admin: 11/14/16 14:23 Dose: 10 mg Warfarin Sodium (Coumadin) 10 mg PO ONETIME ONE Stop: 11/15/16 14:01 Last Admin: 11/15/16 14:02 Dose: 10 mg Warfarin Sodium (Coumadin) 7.5 mg PO ONETIME ONE Stop: 11/16/16 14:01 Last Admin: 11/16/16 13:55 Dose: 7.5 mg Warfarin Sodium (Coumadin) 7.5 mg PO ONETIME ONE Stop: 11/17/16 14:01 Last Admin: 11/17/16 14:14 Dose: 7.5 mg - Exam Quality Assessment: No: supplemental oxygen General: alert, oriented Neck: supple Lungs: Clear to auscultation, Normal respiratory effort Cardiovascular: Regular Rate, Regular Rhythm Abdomen: bowel sounds present, soft, no tenderness, no distension Extremities: no edema - Problem List & Annotations (1) Alcohol abuse SNOMED Code(s): 47814165 Code(s): F10.10 - ALCOHOL ABUSE, UNCOMPLICATED Status: Acute Current Visit: Yes (2) Pulmonary emboli SNOMED Code(s): 47159609, 03503294 Code(s): I26.99 - OTHER PULMONARY EMBOLISM WITHOUT ACUTE COR PULMONALE Status: Acute Current Visit: Yes Qualifiers: Pulmonary embolism type: other Chronicity: acute Acute cor pulmonale presence: without acute cor pulmonale Qualified Code(s): I26.99 - Other pulmonary embolism without acute cor pulmonale (3) Hypertension SNOMED Code(s): 50966876 Code(s): I10 - ESSENTIAL (PRIMARY) HYPERTENSION Status: Acute Current Visit: Yes (4) Anxiety SNOMED Code(s): 75419215 Code(s): F41.9 - ANXIETY DISORDER, UNSPECIFIED Status: Acute Current Visit: Yes - Problem List Review Problem List Initiated/Reviewed/Updated: Yes - My Orders Last 24 Hours: My Active Orders 11/17/16 09:46 Peripheral IV Discontinue [OM.PC] Routine 11/19/16 05:11 INR,PT,PROTHROMBIN TIME [COAG] AM 11/20/16 05:11 INR,PT,PROTHROMBIN TIME [COAG] AM 11/21/16 05:11 INR,PT,PROTHROMBIN TIME [COAG] AM - Plan Plan:: 1. acute bilateral pulmonary embolism The patient has no family history for blood clots He has been wearing a walking boot for right lower extremity fracture, he has been using that for about 2 months lower extremity ultrasound to evaluate for DVT was negative b/l I do not think that the echocardiogram would change the management the patient will need hypercoagulable workup as an outpatient started on Coumadin treatment Treat with Lovenox until INR becomes therapeutic Check INR daily - today INR is still subtherapeutic INR 1.6 dose Coumadin for target INR 2-3 teach Lovenox today - will try to discharge with lovenox at home until INR comes up 2. history of alcohol use This appears to binge drinking other than chronic continuous use No apparent withdrawal symptoms he is feeling anxious, started Ativan p.r.n. 3. hypertension Started Norvasc improved We'll follow blood pressures
--- NOTE | 2016-11-18 10:32 | PCM.DCSUM1 ---
Discharge Summary - Hospital Course Free Text/Narrative:: presented with SOB was found to hae Pulmonary embolism on CT 1. acute bilateral pulmonary embolism The patient has no family history for blood clots He has been wearing a walking boot for right lower extremity fracture, he has been using that for about 2 months lower extremity ultrasound to evaluate for DVT was negative b/l I do not think that the echocardiogram would change the management the patient will need hypercoagulable workup as an outpatient started on Coumadin treatment Treat with Lovenox until INR becomes therapeutic 2. history of alcohol use This appears to binge drinking other than chronic continuous use had No apparent withdrawal symptoms h 3. hypertension Started Norvasc improved follow blood pressures as out pt - Discharge Data Discharge Date: 11/18/16 Discharge Disposition: Home, Self-Care 01 Condition: Good - Discharge Diagnosis/Problem(s) (1) Alcohol abuse SNOMED Code(s): 22637991 ICD Code: F10.10 - ALCOHOL ABUSE, UNCOMPLICATED Status: Acute Current Visit: Yes (2) Pulmonary emboli SNOMED Code(s): 09050731, 22273145 ICD Code: I26.99 - OTHER PULMONARY EMBOLISM WITHOUT ACUTE COR PULMONALE Status: Acute Current Visit: Yes Qualifiers: Pulmonary embolism type: other Chronicity: acute Acute cor pulmonale presence: without acute cor pulmonale Qualified Code(s): I26.99 - Other pulmonary embolism without acute cor pulmonale (3) Hypertension SNOMED Code(s): 19459306 ICD Code: I10 - ESSENTIAL (PRIMARY) HYPERTENSION Status: Acute Current Visit: Yes (4) Anxiety SNOMED Code(s): 15501775 ICD Code: F41.9 - ANXIETY DISORDER, UNSPECIFIED Status: Acute Current Visit: Yes - Patient Instructions Diet: Heart Healthy Diet Activity: As Tolerated - Discharge Plan Prescriptions/Med Rec: Enoxaparin [Lovenox] 100 mg SUBCUT Q12HR #6 syringe Warfarin [Coumadin] 7.5 mg PO DAILY #30 tablet amLODIPine [Norvasc] 5 mg PO DAILY #30 tablet Home Medications: Home Meds Enoxaparin [Lovenox] 100 mg SUBCUT Q12HR #6 syringe 11/18/16 [Rx] Warfarin [Coumadin] 7.5 mg PO DAILY #30 tablet 11/18/16 [Rx] amLODIPine [Norvasc] 5 mg PO DAILY #30 tablet 11/18/16 [Rx] Patient Handouts: Pulmonary Embolism Referrals: PCP,None [Primary Care Provider] - (dr. Schroeder, on Thursday to check INR and adjust coumadin, possibly stop Lovenox) - Discharge Summary/Plan Comment DC Time >30 min.: No - Review of Systems General: Denies: Fever, Weakness Pulmonary: Denies: shortness of breath, pleuritic chest pain Cardiovascular: Denies: Chest Pain Gastrointestinal: Denies: Abdominal pain Genitourinary: Denies: dysuria Neurological: Denies: Confusion, Dizziness - Patient Data Vitals - Most Recent: Last Vital Signs Temp 36.7 C 11/18/16 07:15 Pulse 60 11/18/16 07:15 Resp 20 11/18/16 07:15 BP 123/79 11/18/16 09:30 Pulse Ox 100 11/18/16 07:15 Weight - Most Recent: 99.881 kg I&O - Last 24 hours: Intake & Output 11/17/16 11/18/16 11/18/16 22:59 06:59 14:59 Intake Total 590 350 Output Total 150 1 Balance 440 349 Lab Results - Last 24 hrs: Laboratory Results - last 24 hr 11/18/16 11/18/16 11/18/16 Range/Units 06:10 06:10 06:10 WBC 10.9 H (5.0-10.0) 10^3/uL RBC 5.08 (4.6-6.2) 10^6/uL Hgb 14.2 (14.0-18.0) g/dL Hct 43.7 (40.0-54.0) % MCV 86.0 (80-100) fL MCH 28.0 (27.0-34.0) pg MCHC 32.5 L (33.0-35.0) g/dL Plt Count 310 (150-450) 10^3/uL Neut % (Auto) 57.2 (42.2-75.2) % Lymph % (Auto) 29.2 (20.5-50.1) % [place] % (Auto) 8.4 H (2-8) % Eos % (Auto) 4.9 H (1.0-3.0) % Baso % (Auto) 0.3 (0.0-1.0) % PT 16.4 H (9.0-12.0) SEC INR 1.6 H (0.9-1.2) Sodium 135 (135-145) mmol/L Potassium 4.2 (3.6-5.0) mmol/L Chloride 107 (101-111) mmol/L Carbon Dioxide 22.0 (21.0-31.0) mmol/L Anion Gap 10.2 BUN 14 (7-18) mg/dL Creatinine 0.8 (0.6-1.3) mg/dL Est Cr Clr Drug Dosing 133.34 mL/min Estimated GFR (MDRD) > 60 Glucose 89 (74-105) mg/dL Calcium 9.1 (8.4-10.2) mg/dl Med Orders - Current: Current Medications Acetaminophen (Tylenol Extra Strength) 500 mg PO QID PRN PRN Reason: Pain/Fever Last Admin: 11/15/16 19:35 Dose: 500 mg Amlodipine Besylate (Norvasc) 5 mg PO DAILY [facility] Last Admin: 11/18/16 09:30 Dose: 5 mg Enoxaparin Sodium (Lovenox) 100 mg SUBCUT Q12HR [facility] Last Admin: 11/18/16 09:29 Dose: 100 mg Lorazepam (Ativan) 1 mg PO Q6H PRN PRN Reason: Anxiety Last Admin: 11/16/16 21:00 Dose: 1 mg Warfarin Sodium (Pharmacy To Dose - Warfarin) 1 dose .XX ASDIRECTED [facility] Discontinued Medications Enoxaparin Sodium (Lovenox) 100 mg SUBCUT ONETIME ONE Stop: 11/13/16 15:54 Last Admin: 11/13/16 16:01 Dose: 100 mg Multivitamins/Minerals 10 ml/Thiamine HCl 100 mg/ Folic Acid 1 mg/ Lactated Ringer's 1,011.2 mls @ 999 mls/hr IV .BOLUS ONE Stop: 11/13/16 14:41 Last Admin: 11/13/16 14:01 Dose: 999 mls/hr Sodium Chloride (Normal Saline) 500 mls @ 100 mls/hr IV ASDIRECTED [facility] Magnesium Sulfate/Dextrose 1 (gm/ Premix) 100 mls @ 100 mls/hr IV ONETIME ONE Stop: 11/13/16 18:05 Last Admin: 11/13/16 18:02 Dose: 100 mls/hr Sodium Chloride (Normal Saline) 1,000 mls @ 125 mls/hr IV ASDIRECTED [facility] Last Admin: 11/14/16 02:43 Dose: 125 mls/hr Iopamidol (Isovue-370 (76%)) 100 ml IVPUSH ONETIME ONE Stop: 11/13/16 14:38 Last Admin: 11/13/16 14:37 Dose: 100 ml Lorazepam (Ativan) 1 mg IVPUSH ONETIME ONE Stop: 11/13/16 13:43 Last Admin: 11/13/16 14:00 Dose: 1 mg Lorazepam (Ativan) 0 mg PO Q8H PRN; Protocol PRN Reason: Agitation Last Admin: 11/15/16 22:01 Dose: 0.5 mg Ondansetron HCl (Zofran) 4 mg IV ONETIME ONE Stop: 11/13/16 13:43 Last Admin: 11/13/16 14:00 Dose: 4 mg Potassium Chloride (Klor-Con 10) 10 meq PO ONETIME ONE Stop: 11/13/16 17:07 Last Admin: 11/13/16 18:01 Dose: 10 meq Sodium Chloride (Saline Flush) 10 ml FLUSH ASDIRECTED PRN PRN Reason: Keep Vein Open Last Admin: 11/13/16 14:01 Dose: 10 ml Sodium Chloride (Saline Flush) 10 ml FLUSH ASDIRECTED PRN PRN Reason: Keep Vein Open Last Admin: 11/17/16 09:40 Dose: 10 ml Warfarin Sodium (Coumadin) 5 mg PO ONETIME ONE Stop: 11/13/16 16:56 Last Admin: 11/13/16 18:01 Dose: 5 mg Warfarin Sodium (Coumadin) 10 mg PO ONETIME ONE Stop: 11/14/16 14:01 Last Admin: 11/14/16 14:23 Dose: 10 mg Warfarin Sodium (Coumadin) 10 mg PO ONETIME ONE Stop: 11/15/16 14:01 Last Admin: 11/15/16 14:02 Dose: 10 mg Warfarin Sodium (Coumadin) 7.5 mg PO ONETIME ONE Stop: 11/16/16 14:01 Last Admin: 11/16/16 13:55 Dose: 7.5 mg Warfarin Sodium (Coumadin) 7.5 mg PO ONETIME ONE Stop: 11/17/16 14:01 Last Admin: 11/17/16 14:14 Dose: 7.5 mg - Exam Quality Assessment: Denies: supplemental oxygen General: Reports: alert, oriented HEENT: Reports: EOMI Neck: Reports: supple Lungs: Reports: Clear to auscultation, Normal respiratory effort Cardiovascular: Reports: Regular Rate, Regular Rhythm Abdomen: Reports: bowel sounds present, soft, no tenderness, no distension Extremities: Reports: no edema, normal pulses Skin: Reports: warm, dry, intact Neurological: Reports: no new focal deficit Psy/Mental Status: Reports: alert, normal affect, normal mood *Q Meaningful Use (DIS) - VTE *Q VTE Criteria *Q: - Stroke *Q Stroke Criteria *Q: - AMI *Q AMI Criteria *Q:
[2016-11-18 11:14] VITALS: BP 127/80
[2016-11-18] MEDS ORDERED: Warfarin 5 MG Tab PO ONE (14:00)
--- NOTE | 2016-11-24 09:33 | EKG ---
11/13/2016- JOANIE VICK - EKG done on a 36-year-old male showing sinus rhythm, heart rate of 88 beats per minute. Normal intervals. Normal axis. Prolonged QT interval at 480. [facility] /[id number]
== END 2016-11-18 11:55 | disposition home or self-care (01) | DRG 176 ==
LOC: DL.ED 13:33 → DL.MS 16:14 → UNDOADMIN 16:14 → DL.MS 16:58
PROVIDERS: ADMIT Internal Medicine; ATTEND Internal Medicine
DX: I26.99 Other pulmonary embolism without acute cor pulmonale (principal); Z79.01 Long term (current) use of anticoagulants; F19.10 Other psychoactive substance abuse, uncomplicated; F10.10 Alcohol abuse, uncomplicated; Y90.0 Blood alcohol level of less than 20 mg/100 ml; I10 Essential (primary) hypertension; F41.9 Anxiety disorder, unspecified; S82.891D Other fracture of right lower leg, subsequent encounter for closed fracture with routine healing
CPT/HCPCS: 36415; 71010; 71260; 80053; 80305; 81001; 82150; 83690; 83735; 84484; 85025; 85379; 85610; 93005; 96361; 96372; 96374; 96375; 99285; G0480; J1650; J2060; J2405; J3411; J7050; J7120; Q9967 ×2; 80048; 85027; 93970; A9270-GY; J3475; J3490; J7030

== ENCOUNTER 2017-09-06 18:16 | Emergency (ER) | payer MEDICAID, SELFPAY ==
[2017-09-06 18:47] VITALS: BP 159/99
[2017-09-06 19:09] LABS: CHLORIDE,CL 99 mmol/L (101-111); SODIUM,NA 135 mmol/L (135-145)
--- NOTE | 2017-09-06 19:20 | EDM.PDOC ---
ED HPI GENERAL MEDICAL PROBLEM - General Chief Complaint: Chest Pain Stated Complaint: [id number] HEART HURTS Time Seen by Provider: 09/06/17 19:00 Source of Information: Reports: Patient History Limitations: Reports: No Limitations - History of Present Illness INITIAL COMMENTS - FREE TEXT/NARRATIVE: This 37 yo male patient reports to the ED with left sided chest pain that started on 09/03/17 and has continued since that time. The patient reports he has a history of blood clots in his lungs with similar symptoms. The patient reports he has not been taking his blood thinners, but did not have a reason for stopping his medications. The patient also reports fevers and coughs over the past 3-4 days. Onset Date: 09/03/17 Duration: Constant Location: Reports: Chest (left sided chest pain) Quality: Reports: Ache, Dull Severity: Severe Improves with: Reports: None Worsens with: Reports: Other (coughing and sneezing ) Associated Symptoms: Reports: Cough, Fever/Chills Left Upper Anterior Chest Pain Score (Numeric/FACES): 7 - Related Data Allergies Allergy/AdvReac Type Severity Reaction Status Date / Time No Known Allergies Allergy Verified 09/06/17 18:47 Home Meds: Home Meds Enoxaparin [Lovenox] 100 mg SUBCUT Q12HR #6 syringe 11/18/16 [Rx] Warfarin [Coumadin] 7.5 mg PO DAILY #30 tablet 11/18/16 [Rx] amLODIPine [Norvasc] 5 mg PO DAILY #30 tablet 11/18/16 [Rx] Past Medical History - Past Health History Medical/Surgical History: Denies Medical/Surgical History Other HEENT History: Infection behind his right ear. Cardiovascular History: Reports: Hypertension Gastrointestinal History: Reports: GERD Other Musculoskeletal History: old left hand fractures Other Dermatologic History: Infection behind his right ear. - Past Surgical History Other Musculoskeletal Surgeries/Procedures:: left hand surgery for fracture repair. Social & Family History - Family History Family Medical History: Noncontributory - Tobacco Use Smoking Status *Q: Current Every Day Smoker Years of Tobacco use: 15 Packs/Tins Daily: 1 Used Tobacco, but Quit: No Second Hand Smoke Exposure: No - Caffeine Use Caffeine Use: Reports: Soda - Alcohol Use Days Per Week of Alcohol Use: 1 Number of Drinks Per Day: 6 Total Drinks Per Week: 6 Date of Last Drink: 09/03/17 - Recreational Drug Use Recreational Drug Use: No Recreational Drug Type: Reports: Marijuana/Hashish Recreational Drug Use Frequency: Weekly - Living Situation & Occupation Living situation: Reports: with Family ED ROS GENERAL - Review of Systems Review Of Systems: ROS reveals no pertinent complaints other than HPI. ED EXAM, GENERAL - Physical Exam Exam: See Below Exam Limited By: No Limitations General Appearance: Alert, WD/WN, Moderate Distress Eye Exam: Bilateral Eye: EOMI, Normal Inspection, PERRL Ears: Normal External Exam, Normal Canal, Hearing Grossly Normal, Normal TMs Nose: Normal Inspection, Normal Mucosa, No Blood Throat/Mouth: Normal Inspection, Normal Lips, Normal Teeth, Normal Gums, Normal Oropharynx, Normal Voice, No Airway Compromise Head: Atraumatic, Normocephalic Neck: Normal Inspection, Supple, Non-Tender, Full Range of Motion Respiratory/Chest: No Respiratory Distress, Lungs Clear, Normal Breath Sounds, No Accessory Muscle Use, Other (left upper chest tenderness to palpation) Cardiovascular: Normal Peripheral Pulses, Regular Rate, Rhythm, No Edema, No Gallop, No JVD, No Murmur, No Rub GI/Abdominal: Normal Bowel Sounds, Soft, Non-Tender, No Organomegaly, No Distention, No Abnormal Bruit, No Mass (Male) Exam: Deferred Rectal (Males) Exam: Deferred Back Exam: Normal Inspection, Full Range of Motion, NT Extremities: Normal Inspection, Normal Range of Motion, Non-Tender, Normal Capillary Refill, No Pedal Edema Neurological: Alert, Oriented, CN II-XII Intact, Normal Cognition, Normal Gait, Normal Reflexes, No Motor/Sensory Deficits Psychiatric: Normal Affect, Normal Mood Skin Exam: Warm, Dry, Intact, Normal Color, No Rash Lymphatic: No Adenopathy Course - Vital Signs Last Recorded V/S: Last Vital Signs Temp 36.4 C 09/06/17 18:25 Pulse 100 09/06/17 18:25 Resp 19 09/06/17 18:25 BP 159/99 H 09/06/17 18:25 Pulse Ox 100 09/06/17 18:25 - Orders/Labs/Meds Orders: Active Orders 24 hr Category Date Time Status EKG 12 Lead [EKG Documentation Completion] [RC] URGENT Care 09/06/17 18:30 Active Chest 1V Frontal [CR] Urgent Exams 09/06/17 18:29 Taken Chest w Cont [CT] Urgent Exams 09/06/17 19:36 Taken Amoxicillin/Clavulanate K [Augmentin 875 MG/125 MG] Med 09/06/17 20:49 Once 1 tab PO ONETIME ONE Ketorolac [Toradol] Med 09/06/17 20:49 Once 30 mg IVPUSH ONETIME ONE Labs: Laboratory Tests 09/06/17 09/06/17 09/06/17 Range/Units 18:28 18:28 18:28 WBC 8.6 (5.0-10.0) 10^3/uL RBC 5.35 (4.6-6.2) 10^6/uL Hgb 13.7 L (14.0-18.0) g/dL Hct 41.9 (40.0-54.0) % MCV 78.3 L D (80-100) fL MCH 25.6 L (27.0-34.0) pg MCHC 32.7 L (33.0-35.0) g/dL Plt Count 243 (150-450) 10^3/uL Neut % (Auto) 69.8 (42.2-75.2) % Lymph % (Auto) 13.4 L (20.5-50.1) % [place] % (Auto) 15.1 H (2-8) % Eos % (Auto) 1.2 (1.0-3.0) % Baso % (Auto) 0.5 (0.0-1.0) % D-Dimer, Quantitative 1170 H (0-400) ng/mL Sodium 135 (135-145) mmol/L Potassium 3.1 L (3.6-5.0) mmol/L Chloride 99 L (101-111) mmol/L Carbon Dioxide 25.0 (21.0-31.0) mmol/L Anion Gap 14.1 BUN 4 L (7-18) mg/dL Creatinine 0.9 (0.6-1.3) mg/dL Est Cr Clr Drug Dosing 117.37 mL/min Estimated GFR (MDRD) > 60 BUN/Creatinine Ratio 4.44 Glucose 135 H (74-105) mg/dL Calcium 9.2 (8.4-10.2) mg/dl Total Bilirubin 1.0 (0.2-1.0) mg/dL AST 37 (10-42) IU/L ALT 21 (10-60) IU/L Alkaline Phosphatase 105 (42-121) IU/L Troponin I < 0.02 (0.00-0.02) ng/ml Total Protein 7.8 (6.7-8.2) g/dl Albumin 3.9 (3.2-5.5) g/dl Globulin 3.9 Albumin/Globulin Ratio 1.00 Meds: Medications Discontinued Medications Generic Name Dose Route Start Last Admin Trade Name Srinath PRN Reason Stop Dose Admin Iopamidol 100 ml 09/06/17 19:36 09/06/17 20:05 Isovue-370 (76%) IVPUSH 09/06/17 19:37 100 ml ONETIME ONE Administration - Re-Assessments/Exams Free Text/Narrative Re-Assessment/Exam: 09/06/17 19:37 The patient was advised of the lab results. A CT of chest with contrast was ordered. Departure - Departure Time of Disposition: 20:50 Disposition: Home, Self-Care 01 Condition: Fair Clinical Impression: Bronchitis Chest wall muscle strain Qualifiers: Encounter type: initial encounter Qualified Code(s): S29.011A - Strain of muscle and tendon of front wall of thorax, initial encounter Instructions: Acute Bronchitis, Ichn-ys-[id number], Chest Wall Pain, Apim-kt-[id number] Forms: ED Department Discharge Care Plan Goals: The patient was advised of the examination, lab, EKG and CT results during the visit. The patient was given a dose of IV Toradol and oral Augmentin while in the ED. The patient was discharged with a script for Augmentin (500/125) to take 1 by mouth 2 times per day for 10 days. The patient was advised to take his medications as prescribed and to follow-up with his primary care facility this week. If the patient has any additional symptoms or concerns, the patient should either visit his primary care facility or return to the emergency department. - My Orders Last 24 Hours: My Active Orders 09/06/17 18:29 Chest 1V Frontal [CR] Urgent 09/06/17 18:30 EKG 12 Lead [EKG Documentation Completion] [RC] URGENT 09/06/17 19:36 Chest w Cont [CT] Urgent 09/06/17 20:49 Amoxicillin/Clavulanate K [Augmentin 875 MG/125 MG] 1 tab PO ONETIME ONE Ketorolac [Toradol] 30 mg IVPUSH ONETIME ONE - Assessment/Plan Last 24 Hours: My Active Orders 09/06/17 18:29 Chest 1V Frontal [CR] Urgent 09/06/17 18:30 EKG 12 Lead [EKG Documentation Completion] [RC] URGENT 09/06/17 19:36 Chest w Cont [CT] Urgent 09/06/17 20:49 Amoxicillin/Clavulanate K [Augmentin 875 MG/125 MG] 1 tab PO ONETIME ONE Ketorolac [Toradol] 30 mg IVPUSH ONETIME ONE
[2017-09-06] MEDS ORDERED: Iopamidol 755 Mg/ML 100 ML Bottle IVPUSH ONE (19:36)
[2017-09-06] MEDS ORDERED: Amoxicillin/Clavulanate K 875-125 MG Tab PO ONE (20:49)
[2017-09-06] MEDS ORDERED: Ketorolac 30 MG/ML SDV IVPUSH ONE (20:49)
--- NOTE | 2017-09-09 12:37 | EKG ---
09/06/2017 - JOANIE VICK - FINDINGS: A 12-lead EKG shows normal sinus rhythm with heart rate of 93. No significant ST elevation or ST depression. Right axis deviation noted. [facility] /[id number]
== END 2017-09-06 20:59 | disposition home or self-care (01) ==
LOC: DL.ED 18:16
DX: S29.011A Strain of muscle and tendon of front wall of thorax, initial encounter (principal); J40 Bronchitis, not specified as acute or chronic; I10 Essential (primary) hypertension; K21.9 Gastro-esophageal reflux disease without esophagitis; F17.210 Nicotine dependence, cigarettes, uncomplicated; Z79.01 Long term (current) use of anticoagulants; Z79.899 Other long term (current) drug therapy; X58.XXXA Exposure to other specified factors, initial encounter
CPT/HCPCS: 36415; 71045; 71260; 80053; 84484; 85025; 85379; 93005; 96374; 99285; A9270; J1885; Q9967

== ENCOUNTER 2018-02-11 00:13 | Emergency (ER) | payer MEDICAID ==
[2018-02-11] MEDS ORDERED: Acetaminophen/HYDROcodone 325-10 MG Tab PO ONE (00:14)
[2018-02-11 00:35] VITALS: BP 148/102
[2018-02-11] MEDS ORDERED: Acetaminophen/oxyCODONE 325-5 MG Tab PO ONE (01:05)
[2018-02-11] MEDS ORDERED: Ketorolac 30 MG/ML SDV IVPUSH ONE (01:06)
[2018-02-11 01:19] LABS: ANION GAP 11.3; CHLORIDE,CL 105 mmol/L (101-111); SODIUM,NA 137 mmol/L (135-145)
[2018-02-11] MEDS ORDERED: Iopamidol 755 Mg/ML 100 ML Bottle IVPUSH ONE (01:37)
[2018-02-11] MEDS ORDERED: Sodium Chloride 0.9% 1,000 ML IV ONE (01:40)
--- NOTE | 2018-02-11 02:28 | EDM.PDOC ---
ED HPI GENERAL MEDICAL PROBLEM - General Chief Complaint: Respiratory Problem Stated Complaint: SPENSER GRAY [id number] Time Seen by Provider: 02/11/18 00:30 Source of Information: Reports: Patient History Limitations: Reports: No Limitations - History of Present Illness INITIAL COMMENTS - FREE TEXT/NARRATIVE: C/o pain right lateral chest after falling off deck one week ago. Unable to sleep , difficulty moving. Reports hx PE in past, was on blood thinners but quit. SOB with movement. Hurts to cough. 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 Cardiovascular History: Reports: Hypertension Gastrointestinal History: Reports: GERD Other Musculoskeletal History: old left hand fractures Other Dermatologic History: Infection behind his right ear. - Past Surgical History Other Musculoskeletal Surgeries/Procedures:: left hand surgery for fracture repair. Social & Family History - Family History Family Medical History: Noncontributory - Tobacco Use Smoking Status *Q: Never Smoker - Caffeine Use Caffeine Use: Reports: None - Recreational Drug Use Recreational Drug Use: No - Living Situation & Occupation Living situation: Reports: with Family ED ROS GENERAL - Review of Systems Review Of Systems: ROS reveals no pertinent complaints other than HPI. ED EXAM, GENERAL - Physical Exam Exam: See Below Exam Limited By: No Limitations General Appearance: Alert, Moderate Distress Eye Exam: Bilateral Eye: EOMI Ears: Normal External Exam Nose: Normal Inspection Throat/Mouth: Normal Inspection Head: Atraumatic, Normocephalic Neck: Normal Inspection Respiratory/Chest: Decreased Breath Sounds, Rhonchi ( bronchi), Splinting, Other (mid anterior lateral chest pain with palpation). No: Wheezing Cardiovascular: Normal Peripheral Pulses, Regular Rate, Rhythm GI/Abdominal: Normal Bowel Sounds Back Exam: Normal Inspection. No: Paraspinal Tenderness, Vertebral Tenderness Extremities: Other (mild pain with external rotation right shoulder, no deformity no crepitus. ) Neurological: Alert, Oriented Psychiatric: Normal Affect, Normal Mood Skin Exam: Warm, Intact. No: Ecchymosis Course - Vital Signs Last Recorded V/S: Last Vital Signs Temp 98.3 F 02/11/18 00:26 Pulse 85 02/11/18 00:26 Resp 19 02/11/18 00:26 BP 148/102 H 02/11/18 00:26 Pulse Ox 99 02/11/18 00:26 - Orders/Labs/Meds Orders: Active Orders 24 hr Category Date Time Status Ang Chest [CT] Urgent Exams 02/11/18 01:37 Taken Ribs 2V wo Chest Rt [CR] Urgent Exams 02/11/18 01:00 Taken Orphenadrine [Norflex] Med 02/11/18 01:15 Active 60 mg IM Q12H Sodium Chloride 0.9% [Normal Saline] 1,000 ml Med 02/11/18 01:40 Active IV .BOLUS Medication Orders Sodium Chloride (Normal Saline) 1,000 mls @ 999 mls/hr IV .BOLUS ONE Stop: 02/11/18 02:40 Last Admin: 02/11/18 02:20 Dose: 999 mls/hr Orphenadrine Citrate (Norflex) 60 mg IM Q12H PENDING SALE TO [facility] Last Admin: 02/11/18 01:20 Dose: 60 mg Labs: Laboratory Tests 02/11/18 02/11/18 02/11/18 Range/Units 00:43 00:43 00:43 WBC 9.9 (5.0-10.0) 10^3/uL RBC 4.68 (4.6-6.2) 10^6/uL Hgb 12.2 L D (14.0-18.0) g/dL Hct 38.3 L (40.0-54.0) % MCV 81.8 D (80-100) fL MCH 26.1 L (27.0-34.0) pg MCHC 31.9 L (33.0-35.0) g/dL Plt Count 322 D (150-450) 10^3/uL Neut % (Auto) 56.9 (42.2-75.2) % Lymph % (Auto) 27.2 (20.5-50.1) % [place] % (Auto) 10.6 H (2-8) % Eos % (Auto) 4.9 H (1.0-3.0) % Baso % (Auto) 0.4 (0.0-1.0) % D-Dimer, Quantitative 816 H (0-400) ng/mL Sodium 137 (135-145) mmol/L Potassium 3.3 L (3.6-5.0) mmol/L Chloride 105 (101-111) mmol/L Carbon Dioxide 24.0 (21.0-31.0) mmol/L Anion Gap 11.3 BUN 13 (7-18) mg/dL Creatinine 1.0 (0.6-1.3) mg/dL Est Cr Clr Drug Dosing 105.63 mL/min Estimated GFR (MDRD) > 60 BUN/Creatinine Ratio 13.00 Glucose 144 H (74-105) mg/dL Calcium 8.7 (8.4-10.2) mg/dl Total Bilirubin 0.3 (0.2-1.0) mg/dL AST 29 (10-42) IU/L ALT 20 (10-60) IU/L Alkaline Phosphatase 114 (42-121) IU/L Total Protein 6.8 (6.7-8.2) g/dl Albumin 3.4 (3.2-5.5) g/dl Globulin 3.4 Albumin/Globulin Ratio 1.00 Meds: Medications Generic Name Dose Route Start Last Admin Trade Name Freq PRN Reason Stop Dose Admin Sodium Chloride 1,000 mls @ 999 mls/hr 02/11/18 01:40 02/11/18 02:20 Normal Saline IV 02/11/18 02:40 999 mls/hr .BOLUS ONE Administration Orphenadrine Citrate 60 mg 02/11/18 01:15 02/11/18 01:20 Norflex IM 60 mg Q12H LILIAN Administration Discontinued Medications Generic Name Dose Route Start Last Admin Trade Name Freq PRN Reason Stop Dose Admin Iopamidol 100 ml 02/11/18 01:37 Isovue-370 (76%) IVPUSH 02/11/18 01:38 ONETIME ONE Ketorolac Tromethamine 30 mg 02/11/18 01:06 02/11/18 01:18 Toradol IVPUSH 02/11/18 01:07 30 mg ONETIME ONE Administration Oxycodone/Acetaminophen 1 tab 02/11/18 01:05 02/11/18 01:18 Percocet 325-5 Mg PO 02/11/18 01:06 1 tab ONETIME ONE Administration - Radiology Interpretation Free Text/Narrative:: CXR with ribs; acute fx aterolateral 3rd and 4th ribs CT negative for PE, or pulmonary contusion, 5mm pulmonary nodule right middle lobe - Re-Assessments/Exams Free Text/Narrative Re-Assessment/Exam: 02/11/18 02:32 Patient informed of sray and CT results including pulmonary nodule and need for follow up with primary care. Departure - Departure Time of Disposition: 02:26 Disposition: Home, Self-Care 01 Condition: Good Clinical Impression: Multiple fractures of ribs, right side, initial encounter for closed fracture, Pulmonary nodule less than 6 cm determined by computed tomography of lung - Discharge Information Instructions: Rib Fracture Forms: ED Department Discharge Additional Instructions: incentive spirometer use every hour while awake Maria A breathing exercises splint right chest with cough ibuprofen 600mg every 6 hours moderate pain Hydrocodone 10/325 one every 6 hors as needed for severe pain #13 Follow up if difficulty breathing , cough or fever Follow up primary care for recheck of 5 mm pulmonary nodule right middle lobe within 6 months - My Orders Last 24 Hours: My Active Orders 02/11/18 01:00 Ribs 2V wo Chest Rt [CR] Urgent 02/11/18 01:15 Orphenadrine [Norflex] 60 mg IM Q12H 02/11/18 01:37 Ang Chest [CT] Urgent 02/11/18 01:40 Sodium Chloride 0.9% [Normal Saline] 1,000 ml IV .BOLUS - Assessment/Plan Last 24 Hours: My Active Orders 02/11/18 01:00 Ribs 2V wo Chest Rt [CR] Urgent 02/11/18 01:15 Orphenadrine [Norflex] 60 mg IM Q12H 02/11/18 01:37 Ang Chest [CT] Urgent 02/11/18 01:40 Sodium Chloride 0.9% [Normal Saline] 1,000 ml IV .BOLUS
[2018-02-11] MEDS ORDERED: Acetaminophen/HYDROcodone 325-10 MG Tab ONE (02:38)
== END 2018-02-11 03:24 | disposition home or self-care (01) ==
LOC: DL.ED 00:13
DX: S22.41XA Multiple fractures of ribs, right side, initial encounter for closed fracture (principal); R91.1 Solitary pulmonary nodule; I10 Essential (primary) hypertension; K21.9 Gastro-esophageal reflux disease without esophagitis; Z79.01 Long term (current) use of anticoagulants; Z79.899 Other long term (current) drug therapy; W17.89XA Other fall from one level to another, initial encounter
CPT/HCPCS: 36415; 71100; 71275; 80053; 85025; 85379; 96361; 96374; 99285; A9270; J1885; J2360; J7030

== ENCOUNTER 2020-05-19 04:38 | Emergency (ER) | payer SELFPAY ==
[2020-05-19 04:46] VITALS: BP 139/95; PULSE 95
--- NOTE | 2020-05-19 04:47 | EDM.PDOCBH ---
ED HPI GENERAL MEDICAL PROBLEM - General Stated Complaint: AMBULANCE Time Seen by Provider: 05/19/20 04:44 Source of Information: Reports: Patient, EMS History Limitations: Reports: Intoxication, Other (cussing on-off) - History of Present Illness INITIAL COMMENTS - FREE TEXT/NARRATIVE: EMS called to pt at someone else's residence sitting on steps c/o left side numbness weakness past few days. pt states can't feel his left foot but pt able to move both sides equally well. - Related Data Allergies Allergy/AdvReac Type Severity Reaction Status Date / Time No Known Allergies Allergy Verified 03/06/18 21:43 Home Meds: Home Meds Enoxaparin [Lovenox] 100 mg SUBCUT Q12HR #6 syringe 11/18/16 [Rx] Warfarin [Coumadin] 7.5 mg PO DAILY #30 tablet 11/18/16 [Rx] amLODIPine [Norvasc] 5 mg PO DAILY #30 tablet 11/18/16 [Rx] Past Medical History - Past Health History Medical/Surgical History: Denies Medical/Surgical History Other HEENT History: Infection behind his right ear. Cardiovascular History: Reports: Hypertension Gastrointestinal History: Reports: GERD Other Musculoskeletal History: old left hand fractures Other Dermatologic History: Infection behind his right ear. - Past Surgical History Other Musculoskeletal Surgeries/Procedures:: left hand surgery for fracture repair. Social & Family History - Family History Family Medical History: Noncontributory - Caffeine Use Caffeine Use: Reports: Coffee, Soda, Tea - Living Situation & Occupation Living situation: Reports: with Family ED ROS GENERAL - Review of Systems Review Of Systems: Comprehensive ROS is negative, except as noted in HPI. ED EXAM, BEHAVIORAL HEALTH - Physical Exam Exam: See Below Exam Limited By: No Limitations General Appearance: Alert, WD/WN, No Apparent Distress, Other (intox, co-op, c ussing on-off) Eye Exam: Bilateral Eye: PERRL (pupils ER @ 4mm) Ears: Hearing Grossly Normal Throat/Mouth: Normal Voice, No Airway Compromise Head: Atraumatic Neck: Non-Tender, Full Range of Motion Respiratory/Chest: No Respiratory Distress Cardiovascular: Regular Rate, Rhythm GI/Abdominal: Soft, Non-Tender (Male) Exam: Deferred Rectal (Males) Exam: Deferred Extremities: Normal Range of Motion Neurological: Alert, Normal Cognition, No Motor/Sensory Deficits, Oriented x 3, Other (intox co-op, cussing on-off) Psychiatric: Alert, Normal Cognition, Oriented, Other (intox co-op, cussing on- off) Skin Exam: Warm, Dry, Normal color COURSE, BEHAVIORAL HEALTH COMP - Course Vital Signs: Last Vital Signs Temp 36.6 C 05/19/20 04:37 Pulse 95 05/19/20 04:37 Resp 18 05/19/20 04:37 BP 139/95 H 05/19/20 04:37 Pulse Ox 95 05/19/20 04:37 Orders, Labs, Meds: Active Orders 24 hr Category Date Time Status INR,PT,PROTHROMBIN TIME [COAG] Stat Lab 05/19/20 06:36 Ordered PTT,PARTIAL THROMBOPLSTIN TIME [COAG] Stat Lab 05/19/20 06:41 Ordered Laboratory Tests 05/19/20 05/19/20 05/19/20 Range/Units 04:50 04:50 05:47 WBC 10.3 H (5.0-10.0) 10^3/uL RBC 4.83 (4.6-6.2) 10^6/uL Hgb 12.2 L (14.0-18.0) g/dL Hct 36.3 L (40.0-54.0) % MCV 75.2 L D (80-100) fL MCH 25.3 L (27.0-34.0) pg MCHC 33.6 (33.0-35.0) g/dL Plt Count 318 (150-450) 10^3/uL Neut % (Auto) 60.5 (42.2-75.2) % Lymph % (Auto) 26.2 (20.5-50.1) % [place] % (Auto) 12.0 H (2-8) % Eos % (Auto) 0.3 L (1.0-3.0) % Baso % (Auto) 1.0 (0.0-1.0) % Sodium 140 (136-145) mmol/L Potassium 2.8 L (3.5-5.1) mmol/L Chloride 100 (98-107) mmol/L Carbon Dioxide 26 (21-32) mmol/L Anion Gap 16.8 H (7-13) mEq/L BUN 6 L (7-18) mg/dL Creatinine 0.94 (0.70-1.30) mg/dL Est Cr Clr Drug Dosing 112.36 mL/min Estimated GFR (MDRD) > 60 BUN/Creatinine Ratio 6.4 (No establ ref range) Glucose 122 H (74-99) mg/dL Calcium 8.7 (8.5-10.1) mg/dL Total Bilirubin 0.9 (0.2-1.0) mg/dL AST 41 H (15-37) U/L ALT 54 (16-63) U/L Alkaline Phosphatase 118 H (46-116) U/L Total Protein 7.4 (6.4-8.2) g/dL Albumin 3.4 (3.4-5.0) g/dL Globulin 4.0 Albumin/Globulin Ratio 0.9 Urine Opiates Screen Negative (NEGATIVE) Ur Oxycodone Screen Negative (NEGATIVE) Urine Methadone Screen Negative (NEGATIVE) Ur Barbiturates Screen Negative (NEGATIVE) U Tricyclic Antidepress Negative (NEGATIVE) Ur Phencyclidine Scrn Negative (NEGATIVE) Ur Amphetamine Screen Negative (NEGATIVE) U Methamphetamines Scrn Negative (NEGATIVE) Urine MDMA Screen Negative (NEGATIVE) U Benzodiazepines Scrn Negative (NEGATIVE) Urine Cocaine Screen Negative (NEGATIVE) U Marijuana (THC) Screen Negative (NEGATIVE) Ethyl Alcohol 379 (0) mg/dL Re-Assessment/Re-Exam: case discussed with Dr Baer Neuro @ [facility] who kindly accepted pt for further eval. Departure - Departure Time of Disposition: 06:42 Disposition: DC/Tfer to Acute Hospital 02 Condition: Fair Clinical Impression: Hypokalemia Cerebral infarction Qualifiers: Cerebral infarction mechanism: unspecified mechanism Qualified Code(s): I63.9 - Cerebral infarction, unspecified Alcohol intoxication Qualifiers: Complication of substance-induced condition: with unspecified complication Qualified Code(s): F10.929 - Alcohol use, unspecified with intoxication, unspecified - Discharge Information Forms: Interfacility Transfer EMTALA Sepsis Event Note (ED) - Focused Exam Vital Signs: Vital Signs Temp Pulse Resp BP Pulse Ox 05/19/20 04:37 36.6 C 95 18 139/95 H 95 - My Orders Last 24 Hours: My Active Orders 05/19/20 06:36 INR,PT,PROTHROMBIN TIME [COAG] Stat 05/19/20 06:41 PTT,PARTIAL THROMBOPLSTIN TIME [COAG] Stat - Assessment/Plan Last 24 Hours: My Active Orders 05/19/20 06:36 INR,PT,PROTHROMBIN TIME [COAG] Stat 05/19/20 06:41 PTT,PARTIAL THROMBOPLSTIN TIME [COAG] Stat
[2020-05-19 05:14] LABS: ANION GAP 16.8 mEq/L (7-13); CHLORIDE,CL 100 mmol/L (98-107); SODIUM,NA 140 mmol/L (136-145)
--- NOTE | 2020-05-19 06:04 | CT ---
PROCEDURE INFORMATION: Exam: CT Head Without Contrast Exam date and time: 05/19/2020 5:38 AM Age: 40 years old Clinical indication: Other: ETOH; Additional info: Left side weakness, R/O bleed TECHNIQUE: Imaging protocol: Computed tomography of the head without contrast. Radiation optimization: All CT scans at this facility use at least one of these dose optimization techniques: automated exposure control; mA and/or kV adjustment per patient size (includes targeted exams where dose is matched to clinical indication); or iterative reconstruction. COMPARISON: No relevant prior studies available. FINDINGS: Brain: Subtle hancock-white differentiation loss in the posterior left occipital lobe is present; of note, there is streak artifact in this region. Acute infarct in this region is difficult to exclude. No hemorrhage, herniation. No extra-axial collection. Cerebral ventricles: No ventriculomegaly. Bones/joints: The skull is intact. Paranasal sinuses: The visualized paranasal sinuses are well aerated. Mastoid air cells: The visualized mastoid air cells are well aerated. Orbital cavity: No orbital postseptal fat stranding. The globes are symmetric. Soft tissues: The scalp is normal. IMPRESSION: While potentially related to artifact, hancock-white differentiation loss is suggested in the left occipital lobe and may represent acute infarct.
[2020-05-19] MEDS ORDERED: MVI, Adult with Vitamin K 10 ML, Folic Acid 1 MG, Thiamine 100 MG in Lactated Ringers 1... IV ONE ×4 (06:57)
[2020-05-19] MEDS ORDERED: LORazepam 2 MG/ML SDV IVPUSH ONE (06:57)
[2020-05-19 07:18] LABS: PTT,PARTIAL THROMBOPLSTIN TIME 22.6 SEC (22.0-34.0)
== END 2020-05-19 07:15 ==
LOC: DL.ED 04:38
DX: I63.9 Cerebral infarction, unspecified (principal); E87.6 Hypokalemia; I10 Essential (primary) hypertension; Z79.899 Other long term (current) drug therapy
CPT/HCPCS: 36415; 70450; 80053; 80305; 80307; 85025; 85610; 85730; 96374; 96375; 99285; J2060; J3411; J7120; J3490

== ENCOUNTER 2020-12-19 01:07 | Emergency (ER) | payer MEDICAID, OTHER ==
[2020-12-19 01:19] VITALS: BP 100/85; PULSE 121
--- NOTE | 2020-12-19 01:46 | EDM.PDOC ---
ED HPI GENERAL MEDICAL PROBLEM - General Chief Complaint: General Stated Complaint: CHEST PAIN, LUMP NEAR LIVER Time Seen by Provider: 12/19/20 01:36 Source of Information: Reports: Patient, Family, RN History Limitations: Reports: Intoxication - History of Present Illness INITIAL COMMENTS - FREE TEXT/NARRATIVE: ED with Aunt. Patient reporting headache for past 6 months. Intermittent chest pain for past year. Vomiting small blood clots intermittely past year. No recent vomiting. No chest pain at present. no fever or chills. Cough, smoker. Hx lung nodule. Feel like "liver hurts" and lump on back on right side. No injury. Daily ETOH use at least quart of vodka. Has not seen primary care in over year. No known exposure to COVID. Last tested months ago. - Related Data Allergies Allergy/AdvReac Type Severity Reaction Status Date / Time No Known Allergies Allergy Verified 03/06/18 21:43 Home Meds: Home Meds Enoxaparin [Lovenox] 100 mg SUBCUT Q12HR #6 syringe 11/18/16 [Rx] Warfarin [Coumadin] 7.5 mg PO DAILY #30 tablet 11/18/16 [Rx] amLODIPine [Norvasc] 5 mg PO DAILY #30 tablet 11/18/16 [Rx] Past Medical History - Past Health History Medical/Surgical History: Denies Medical/Surgical History Other HEENT History: Infection behind his right ear. Cardiovascular History: Reports: Hypertension Gastrointestinal History: Reports: GERD Other Musculoskeletal History: old left hand fractures Psychiatric History: Reports: Addiction Other Dermatologic History: Infection behind his right ear. - Past Surgical History Other Musculoskeletal Surgeries/Procedures:: left hand surgery for fracture repair. Social & Family History - Family History Family Medical History: No Pertinent Family History - Tobacco Use Tobacco Use Status *Q: Current Every Day Tobacco User Years of Tobacco use: 2 Packs/Tins Daily: 0.5 Second Hand Smoke Exposure: Yes - Caffeine Use Caffeine Use: Reports: Coffee, Soda, Tea - Recreational Drug Use Recreational Drug Use: No - Living Situation & Occupation Living situation: Reports: with Family ED ROS GENERAL - Review of Systems Review Of Systems: Comprehensive ROS is negative, except as noted in HPI. ED EXAM, GENERAL - Physical Exam Exam: See Below Exam Limited By: No Limitations General Appearance: Alert, No Apparent Distress Eye Exam: Bilateral Eye: Conjunctival Injection, EOMI Ears: Normal External Exam, Normal Canal, Hearing Grossly Normal Nose: Normal Inspection, Normal Mucosa Throat/Mouth: Normal Inspection Head: Atraumatic, Normocephalic Neck: Normal Inspection, Full Range of Motion Respiratory/Chest: Lungs Clear, Normal Breath Sounds, Other (rare loose non productive bronchial cough) Cardiovascular: Normal Peripheral Pulses, Regular Rate, Rhythm GI/Abdominal: Normal Bowel Sounds, Soft, Tender (mild epigastric, LUQ) Back Exam: Full Range of Motion, Other ( 3x3cm small soft lump right lower posterior rib area . No bruising) Extremities: Normal Range of Motion. No: Pedal Edema Neurological: Alert, Oriented, Normal Cognition Psychiatric: Flat Affect, Other (Does not voice suicidal thoughts or ideations. Not seeking treatment at this time. Might consider at some time. Denied withdrawal seizure hx) Skin Exam: Warm, Dry, Intact, No Rash. No: Ecchymosis, Erythema #1 Interpretation EKG Date: 12/19/20 Time: 01:14 Rhythm: Other (Sinus tach) Rate (Beats/Min): 106 [place]: RAD-Right [place] Deviation P-Wave: Present QRS: Normal Comparison: NA - No Prior EKG Course - Vital Signs Last Recorded V/S: Last Vital Signs Temp 98.1 F 12/19/20 01:13 Pulse 121 H 12/19/20 01:13 Resp 18 12/19/20 01:13 BP 100/85 12/19/20 01:13 Pulse Ox 94 L 12/19/20 01:13 - Orders/Labs/Meds Orders: Active Orders 24 hr Category Date Time Status DRUG SCREEN URINE BIORAD [URCHEM] Stat Lab 12/19/20 02:09 Ordered UA RFX GERDA AND CULT IF INDIC [URIN] Urgent Lab 12/19/20 02:09 Ordered Labs: Laboratory Tests 12/19/20 12/19/20 12/19/20 Range/Units 01:22 01:22 02:09 WBC 9.7 (5.0-10.0) 10^3/uL RBC 5.24 (4.6-6.2) 10^6/uL Hgb 12.8 L (14.0-18.0) g/dL Hct 40.4 (40.0-54.0) % MCV 77.1 L (80-100) fL MCH 24.4 L (27.0-34.0) pg MCHC 31.7 L (33.0-35.0) g/dL Plt Count 369 (150-450) 10^3/uL Neut % (Auto) 66.8 (42.2-75.2) % Lymph % (Auto) 19.8 L (20.5-50.1) % Dick[place] % (Auto) 9.9 H (2-8) % Eos % (Auto) 3.0 (1.0-3.0) % Baso % (Auto) 0.5 (0.0-1.0) % Sodium 138 (136-145) mmol/L Potassium 3.6 (3.5-5.1) mmol/L Chloride 104 (98-107) mmol/L Carbon Dioxide 22 (21-32) mmol/L Anion Gap 15.6 H (7-13) mEq/L BUN 7 (7-18) mg/dL Creatinine 1.23 (0.70-1.30) mg/dL Est Cr Clr Drug Dosing 83.33 mL/min Estimated GFR (MDRD) > 60 BUN/Creatinine Ratio 5.7 (No establ ref range) Glucose 140 H (70-99) mg/dL Calcium 8.6 (8.5-10.1) mg/dL Total Bilirubin 0.3 (0.2-1.0) mg/dL AST 72 H (15-37) U/L ALT 101 H (16-63) U/L Alkaline Phosphatase 128 H (46-116) U/L Total Protein 7.2 (6.4-8.2) g/dL Albumin 2.8 L (3.4-5.0) g/dL Globulin 4.4 Albumin/Globulin Ratio 0.64 Amylase 72 (25-115) U/L Lipase 220 (73-393) U/L Ethyl Alcohol 218 (0) mg/dL SARS-CoV-2 RNA (KARMEN) Negative (NEGATIVE) Departure - Departure Time of Disposition: 03:32 Disposition: Home, Self-Care 01 Condition: Fair Clinical Impression: Chronic alcohol dependence, continuous, Intermittent chest pain, Tobacco abuse, Pulmonary nodule, right - Discharge Information *PRESCRIPTION DRUG MONITORING PROGRAM REVIEWED*: No *COPY OF PRESCRIPTION DRUG MONITORING REPORT IN PATIENT LEANN: No Instructions: Nonspecific Chest Pain, Adult, Pulmonary Nodule, [id number] Referrals: PCP,None [Primary Care Provider] - Forms: ED Department Discharge Additional Instructions: follow up primary care decrease or stop alcohol use follow up 6 months in clinic regarding lung nodule bland diet decrease or stop smoking Sepsis Event Note (ED) - Evaluation Sepsis Screening Result: No Definite Risk - Focused Exam Vital Signs: Vital Signs Temp Pulse Resp BP Pulse Ox 12/19/20 01:13 98.1 F 121 H 18 100/85 94 L - My Orders Last 24 Hours: My Active Orders 12/19/20 02:09 DRUG SCREEN URINE BIORAD [URCHEM] Stat UA RFX GERDA AND CULT IF INDIC [URIN] Urgent - Assessment/Plan Last 24 Hours: My Active Orders 12/19/20 02:09 DRUG SCREEN URINE BIORAD [URCHEM] Stat UA RFX GERDA AND CULT IF INDIC [URIN] Urgent
[2020-12-19 01:54] LABS: ANION GAP 15.6 mEq/L (7-13); CHLORIDE,CL 104 mmol/L (98-107); SODIUM,NA 138 mmol/L (136-145)
--- NOTE | 2020-12-19 03:28 | CT ---
PROCEDURE INFORMATION: Exam: CT Head Without Contrast Exam date and time: 12/19/2020 2:30 AM Age: 40 years old Clinical indication: Pain; Other: Frontal headache x2 days; Additional info: Cough, right side, liver pain, TECHNIQUE: Imaging protocol: Computed tomography of the head without contrast. Radiation optimization: All CT scans at this facility use at least one of these dose optimization techniques: automated exposure control; mA and/or kV adjustment per patient size (includes targeted exams where dose is matched to clinical indication); or iterative reconstruction. COMPARISON: CT Head wo Cont 05/19/2020 5:38 AM FINDINGS: Brain: No acute infarct or hemorrhage. Cerebral ventricles: No ventriculomegaly. Bones/joints: No calvarial or skull base fracture. Paranasal sinuses: Paranasal sinuses are clear. No air-fluid level. Mastoid air cells: Visualized mastoid air cells are clear. Soft tissues: Unremarkable. IMPRESSION: 1. No acute infarct or hemorrhage. 2. No calvarial or skull base fracture.
--- NOTE | 2020-12-19 03:31 | CT ---
PROCEDURE INFORMATION: Exam: CT Chest Without Contrast; Diagnostic Exam date and time: 12/19/2020 2:30 AM Age: 40 years old Clinical indication: Other: Right side liver pain; Abdominal pain; Localized; Cough; Patient HX: Chronic ETOH, HX pulmonary nodule; Additional info: Cough, right side, liver pain, TECHNIQUE: Imaging protocol: Diagnostic computed tomography of the chest without contrast. Radiation optimization: All CT scans at this facility use at least one of these dose optimization techniques: automated exposure control; mA and/or kV adjustment per patient size (includes targeted exams where dose is matched to clinical indication); or iterative reconstruction. COMPARISON: CT Chest wo Cont 09/14/2018 9:56 AM FINDINGS: Lungs: Stable 6 mm right upper lobe pulmonary nodule. Pleural spaces: Unremarkable. No pneumothorax. No pleural effusion. Heart: Unremarkable. No cardiomegaly. No pericardial effusion. Mediastinal space: There is a small hiatal hernia. Aorta: Unremarkable. No aortic aneurysm. Lymph nodes: Unremarkable. No enlarged lymph nodes. Bones/joints: Unremarkable. No acute fracture. Soft tissues: Unremarkable. Other findings: Buttress plate and screws are present in the right clavicle. IMPRESSION: 1. Stable 6 mm right upper lobe pulmonary nodule. For patients at low risk (minimal or absent history of smoking and of other known risk factors), recommend CT Chest at 6-12 months, then consider CT Chest at 18-24 months. For patients at high risk (history of smoking or of other known risk factors), recommend CT Chest at 6-12 months, then CT Chest at 18-24 months. (Reference: [facility]) References: Lauriehoelizabeth H, et al. Guidelines for Management of Incidental Pulmonary Nodules Detected on CT Images: From the Fleischner Society 2017. Radiology. 2017;284(1):228-243. 2. There is a small hiatal hernia. PROCEDURE INFORMATION: Exam: CT Abdomen And Pelvis Without Contrast Exam date and time: 12/19/2020 2:30 AM Age: 40 years old Clinical indication: Other: Right side liver pain; Abdominal pain; Localized; Cough; Patient HX: Chronic ETOH, HX pulmonary nodule; Additional info: Cough, right side, liver pain, TECHNIQUE: Imaging protocol: Computed tomography of the abdomen and pelvis without contrast. Radiation optimization: All CT scans at this facility use at least one of these dose optimization techniques: automated exposure control; mA and/or kV adjustment per patient size (includes targeted exams where dose is matched to clinical indication); or iterative reconstruction. COMPARISON: CT Chest wo Cont 09/14/2018 9:56 AM FINDINGS: Lungs: The lung bases are clear. No effusion Liver: There is fatty infiltration of the liver. Gallbladder and bile ducts: No wall thickening, pericholecystic fluid or stones. Pancreas: Normal. No ductal dilation. Spleen: Normal. No splenomegaly. Adrenal glands: Normal. No mass. Kidneys and ureters: Normal. No hydronephrosis. Stomach and bowel: Diverticulosis without diverticulitis. Appendix: No evidence of appendicitis. Intraperitoneal space: Unremarkable. No free air. No significant fluid collection. Vasculature: Unremarkable. No abdominal aortic aneurysm. Lymph nodes: Unremarkable. No enlarged lymph nodes. Urinary bladder: Unremarkable as visualized. Reproductive: Unremarkable as visualized. Bones/joints: Unremarkable. No acute fracture. Soft tissues: Fat containing umbilical hernia. IMPRESSION: 1. Fatty infiltration of the liver. 2. Diverticulosis without diverticulitis. 3. Fat containing umbilical hernia.
== END 2020-12-19 03:50 | disposition home or self-care (01) ==
LOC: DL.ED 01:07
DX: R91.1 Solitary pulmonary nodule (principal); F10.20 Alcohol dependence, uncomplicated; R07.9 Chest pain, unspecified; F17.200 Nicotine dependence, unspecified, uncomplicated; I10 Essential (primary) hypertension; Y90.7 Blood alcohol level of 200-239 mg/100 ml; Z79.01 Long term (current) use of anticoagulants; Z79.899 Other long term (current) drug therapy; Z20.822 Contact with and (suspected) exposure to COVID-19
CPT/HCPCS: 36415; 70450; 71250; 74176; 80053; 80307; 82150; 83690; 85025; 93005; 93010; 99284; 99285-25; U0002

== ENCOUNTER 2020-12-29 18:26 | Emergency (ER) | payer MEDICAID ==
[2020-12-29 18:59] VITALS: BP 151/107; PULSE 114
[2020-12-29] MEDS ORDERED: Lidocaine 1% 30 ML SDV INJECT ONE (19:06)
[2020-12-29] MEDS ORDERED: Bacitracin Oint 1 GM U/D Packet TOP ONE (19:07)
--- NOTE | 2020-12-29 20:19 | EDM.PDOC ---
ED HPI GENERAL MEDICAL PROBLEM - General Chief Complaint: Bite:Animal, Insect Stated Complaint: POSSIBLE INFECTED SPIDER BITE Time Seen by Provider: 12/29/20 19:50 Source of Information: Reports: Patient, RN, RN Notes Reviewed History Limitations: Reports: No Limitations - History of Present Illness INITIAL COMMENTS - FREE TEXT/NARRATIVE: Gadiel is a 40 y/o male who presents to the ED via personal vehicle with complaints of redness and pain to a "spider bite" on his left wrist. The patient reports first noting the wound to his posterior left wrist approximately five days ago. He states the redness, edema, and pain to this area began two days ago and has progressively worsened in severity. The patient states he has taken no medications for analgesia and has not used supportive cares for treatment of the wound. He denies history of MRSA infections. He denies fever, shaking chills, palpitations, nausea, vomiting, or diarrhea. Left Lower Arm Pain Score (Numeric/FACES): 8 - Related Data Allergies Allergy/AdvReac Type Severity Reaction Status Date / Time No Known Allergies Allergy Verified 12/29/20 19:01 Home Meds: Home Meds . [No Known Home Meds] 12/29/20 [History] Past Medical History - Past Health History Medical/Surgical History: Denies Medical/Surgical History Other HEENT History: Infection behind his right ear. Cardiovascular History: Reports: Hypertension Gastrointestinal History: Reports: GERD Other Musculoskeletal History: old left hand fractures Psychiatric History: Reports: Addiction Other Dermatologic History: Infection behind his right ear. - Past Surgical History Other Musculoskeletal Surgeries/Procedures:: left hand surgery for fracture repair. Social & Family History - Family History Family Medical History: No Pertinent Family History - Tobacco Use Tobacco Use Status *Q: Current Every Day Tobacco User Years of Tobacco use: 5 Packs/Tins Daily: 0.5 - Caffeine Use Caffeine Use: Reports: None - Recreational Drug Use Recreational Drug Use: No - Living Situation & Occupation Living situation: Reports: with Family ED ROS GENERAL - Review of Systems Review Of Systems: Comprehensive ROS is negative, except as noted in HPI. ED EXAM, ANIMAL BITE - Physical Exam Exam: See Below Exam Limited By: No Limitations General Appearance: Alert, No Apparent Distress Throat/Mouth: Normal Inspection, Normal Oropharynx, Normal Voice, No Airway Compromise Head: Atraumatic, Normocephalic Respiratory/Chest: No Respiratory Distress, Lungs Clear, Normal Breath Sounds, No Accessory Muscle Use, Chest Non-Tender Cardiovascular: Normal Peripheral Pulses, Regular Rate, Rhythm, No Edema, No Gallop, No JVD, No Murmur, No Rub, Tachycardia Peripheral Pulses: 2+: Radial (L), Radial (R) Extremities: Normal Range of Motion, No Pedal Edema, Normal Capillary Refill, Arm Pain (To wound on left posterior wrist), Increased Warmth, Redness (Surrounding 5mm x 3mm white-head, extending out to 1cm x 1cm ). No: Joint Swelling, Mottled, Pallor Neurological: Alert, Oriented, CN II-XII Intact, Normal Cognition, Normal Gait, No Motor/Sensory Deficits Psychiatric: Normal Affect, Normal Mood Skin Exam: Other (See above) Lymphadenopathy: Bilateral: No Adenopathy ED ANIMAL BITE PROCEDURES - I&D Site: Left posterior wrist Skin Prep: Providone-Iodine (Betadine) Local Anesthesia: Lidocaine: 1% Plain Local Anesthetic Volume: 5cc Area Incised With: 11 Blade Drainage: Purulent, Bloody, Small Amount Probed to Break Up Loculations: Yes Packed With: None Sterile Dressinx4(s) Complications: No Course - Vital Signs Last Recorded V/S: Last Vital Signs Temp 97.2 F 12/29/20 18:58 Pulse 114 H 12/29/20 18:58 Resp 16 12/29/20 18:58 BP 151/107 H 12/29/20 18:58 Pulse Ox 99 12/29/20 18:58 - Orders/Labs/Meds Orders: Active Orders 24 hr Category Date Time Status CULTURE WOUND [RM] Stat Lab 12/29/20 20:13 Received Meds: Medications Discontinued Medications Generic Name Dose Route Start Last Admin Trade Name Chaceq PRN Reason Stop Dose Admin Bacitracin 1 dose 12/29/20 19:07 12/29/20 19:16 Bacitracin Oint 1 Gm U/D Packet TOP 12/29/20 19:08 1 dose ONETIME ONE Administration Clindamycin HCl 300 mg 12/29/20 20:26 12/29/20 20:31 Clindamycin Hcl 150 Mg Cap PO 12/29/20 20:27 300 mg ONETIME ONE Administration Lidocaine HCl 30 ml 12/29/20 19:06 12/29/20 19:16 Lidocaine 1% 30 Ml Sdv INJECT 12/29/20 19:07 30 ml ONETIME ONE Administration - Re-Assessments/Exams Free Text/Narrative Re-Assessment/Exam: 12/29/20 I&D of left wrist abscess performed without complication; cultures sent. Will treat with clindamycin. Supportive cares for cellulitis reviewed. Discussed red flag signs and symptoms which would warrant reevaluation. Patient verbalized understanding and agreement with the plan of care. Departure - Departure Time of Disposition: 20:17 Disposition: Home, Self-Care 01 Condition: Good Clinical Impression: Abscess Cellulitis Qualifiers: Site of cellulitis: extremity Site of cellulitis of extremity: upper extremity Laterality: left Qualified Code(s): L03.114 - Cellulitis of left upper limb - Discharge Information *PRESCRIPTION DRUG MONITORING PROGRAM REVIEWED*: Not Applicable *COPY OF PRESCRIPTION DRUG MONITORING REPORT IN PATIENT LEANN: Not Applicable Instructions: Skin Abscess, [id number], Cellulitis, Adult, [id number] Forms: ED Department Discharge Additional Instructions: Rx: Clindamycin 1.) Keep wound covered with a bandage while it is draining, then open-to-air. 2.) Keep wound clean and dry. 3.) Take all of your antibiotic until it is gone, even should symptoms improve. 4.) Follow up with your primary are provider, or return to the emergency department with and worsening symptoms, fever, shaking chills, nausea, vomiting, or diarrhea. Sepsis Event Note (ED) - Evaluation Sepsis Screening Result: No Definite Risk - Focused Exam Vital Signs: Vital Signs Temp Pulse Resp BP Pulse Ox 12/29/20 18:58 97.2 F 114 H 16 151/107 H 99 - My Orders Last 24 Hours: My Active Orders 12/29/20 20:13 CULTURE WOUND [RM] Stat - Assessment/Plan Last 24 Hours: My Active Orders 12/29/20 20:13 CULTURE WOUND [RM] Stat
[2020-12-29] MEDS ORDERED: Clindamycin HCl 150 MG Cap PO ONE (20:26)
== END 2020-12-29 20:36 | disposition home or self-care (01) ==
LOC: DL.ED 18:26
DX: L03.114 Cellulitis of left upper limb (principal); I10 Essential (primary) hypertension; Z72.0 Tobacco use
CPT/HCPCS: 10060; 87070; 87077; 87186; 99282; A9270; 10061; 99283

== ENCOUNTER 2021-04-29 21:15 | Emergency (ER) | payer MEDICAID ==
[2021-04-29 21:28] VITALS: BP 114/77; PULSE 90
[2021-04-29 21:59] LABS: ANION GAP 13.1 mEq/L (7-13); CHLORIDE,CL 100 mmol/L (98-107); SODIUM,NA 137 mmol/L (136-145)
[2021-04-29] MEDS ORDERED: GI Cocktail Oral Solution 30 ML PO ONE (22:05)
--- NOTE | 2021-04-29 22:06 | EDM.PDOC ---
ED HPI GENERAL MEDICAL PROBLEM - General Chief Complaint: Chest Pain Stated Complaint: SEVERE CHEST PAINS Time Seen by Provider: 04/29/21 21:55 Source of Information: Reports: Patient, RN, RN Notes Reviewed History Limitations: Reports: No Limitations - History of Present Illness INITIAL COMMENTS - FREE TEXT/NARRATIVE: Joanie is a 41 y/o male who presents to the ED via personal vehicle with complaints of chest pressure and shortness of breath. The patient reports his symptoms began about four days ago and have progressively worsened in that time. He characterizes his pain as sharp pressure that is localized to the right anterior chest; he notes it waxes and wanes in severity. Additionally, he notes malaise, chills, nausea with emesis, and RUQ abdominal pain. He has taken one dose of TUMS with no alleviation in symptoms. The patient states he has been drinking large quantities of alcohol over the past 24 hours. He attest to smoking 1/4 pack of cigarettes per day; he denies recreational drug use. Right Upper Abdomen Pain Score (Numeric/FACES): 8 - Related Data Allergies Allergy/AdvReac Type Severity Reaction Status Date / Time No Known Allergies Allergy Verified 12/29/20 19:01 Home Meds: Home Meds . [No Known Home Meds] 12/29/20 [History] Past Medical History - Past Health History Medical/Surgical History: Denies Medical/Surgical History Other HEENT History: Infection behind his right ear. Cardiovascular History: Reports: Hypertension Respiratory History: Reports: PE Gastrointestinal History: Reports: GERD Other Musculoskeletal History: old left hand fractures Psychiatric History: Reports: Addiction Other Dermatologic History: Infection behind his right ear. - Past Surgical History Other Musculoskeletal Surgeries/Procedures:: left hand surgery for fracture repair. Social & Family History - Family History Family Medical History: No Pertinent Family History - Tobacco Use Tobacco Use Status *Q: Current Every Day Tobacco User Years of Tobacco use: 15 Packs/Tins Daily: 0.3 Second Hand Smoke Exposure: Yes - Caffeine Use Caffeine Use: Reports: None - Recreational Drug Use Recreational Drug Use: No - Living Situation & Occupation Living situation: Reports: with Family ED ROS GENERAL - Review of Systems Review Of Systems: Comprehensive ROS is negative, except as noted in HPI. ED EXAM, GENERAL - Physical Exam Exam: See Below Exam Limited By: No Limitations General Appearance: Alert, No Apparent Distress Eye Exam: Bilateral Eye: EOMI, Normal Inspection, PERRL (3mm) Ears: Normal External Exam, Normal Canal, Hearing Grossly Normal, Normal TMs Ear Exam: Bilateral Ear: Auricle Normal, Canal Normal, TM normal Nose: Normal Inspection, Normal Mucosa, No Blood Throat/Mouth: Normal Inspection, Normal Oropharynx, Normal Voice, No Airway Compromise Head: Atraumatic, Normocephalic Neck: Normal Inspection, Supple, Non-Tender, Full Range of Motion Respiratory/Chest: No Respiratory Distress, No Accessory Muscle Use, Rales (To left upper lobe). No: Chest Non-Tender, Crackles, Rhonchi, Wheezing, Stridor Cardiovascular: Normal Peripheral Pulses, Regular Rate, Rhythm, No Edema, No Gallop, No JVD, No Murmur, No Rub Peripheral Pulses: 2+: Radial (L), Radial (R) GI/Abdominal: Normal Bowel Sounds, Soft, No Distention, No Abnormal Bruit, No Mass, Pelvis Stable, Tender (To palpation of RUQ) (Male) Exam: Deferred Rectal (Males) Exam: Deferred Back Exam: Normal Inspection, Full Range of Motion Extremities: Normal Inspection, Normal Range of Motion, Non-Tender, No Pedal Edema, Normal Capillary Refill Neurological: Alert, Oriented, CN II-XII Intact, Normal Cognition, Normal Gait, No Motor/Sensory Deficits Psychiatric: Normal Affect, Normal Mood Skin Exam: Warm, Dry, Intact, Normal Color, No Rash. No: Cyanosis, Jaundice, Mottled, Pallor #1 Interpretation EKG Date: 04/29/21 Time: 21:32 Rhythm: NSR Rate (Beats/Min): 87 [place]: Normal P-Wave: Present QRS: Normal ST-T: Normal QT: Normal [place]/PQ Interval: 0.14 Comparison: No Change EKG Interpretation Comments: NSR; No evidence of acute myocardial ischemia Course - Vital Signs Last Recorded V/S: Last Vital Signs Temp 97.6 F 04/29/21 21:21 Pulse 90 04/29/21 21:21 Resp 18 04/29/21 21:21 BP 114/77 04/29/21 21:21 Pulse Ox 97 04/29/21 21:21 - Orders/Labs/Meds Orders: Active Orders 24 hr Category Date Time Status CTA Abd Pelv w Cont [CT] Urgent Exams 04/30/21 00:07 Stop Req Labs: Laboratory Tests 04/29/21 04/29/21 04/29/21 Range/Units 21:31 21:31 22:01 WBC 12.3 H (5.0-10.0) 10^3/uL RBC 4.92 (4.6-6.2) 10^6/uL Hgb 11.9 L (14.0-18.0) g/dL Hct 37.0 L (40.0-54.0) % MCV 75.2 L (80-100) fL MCH 24.2 L (27.0-34.0) pg MCHC 32.2 L (33.0-35.0) g/dL Plt Count 399 (150-450) 10^3/uL Neut % (Auto) 65.7 (42.2-75.2) % Lymph % (Auto) 20.4 L (20.5-50.1) % [place] % (Auto) 10.1 H (2-8) % Eos % (Auto) 3.3 H (1.0-3.0) % Baso % (Auto) 0.5 (0.0-1.0) % Sodium 137 (136-145) mmol/L Potassium 3.1 L (3.5-5.1) mmol/L Chloride 100 (98-107) mmol/L Carbon Dioxide 27 (21-32) mmol/L Anion Gap 13.1 H (7-13) mEq/L BUN 7 (7-18) mg/dL Creatinine 1.08 (0.70-1.30) mg/dL Est Cr Clr Drug Dosing 93.93 mL/min Estimated GFR (MDRD) > 60 BUN/Creatinine Ratio 6.5 (No establ ref range) Glucose 155 H (70-99) mg/dL Calcium 8.5 (8.5-10.1) mg/dL Magnesium 1.8 (1.8-2.4) mg/dL Total Bilirubin 0.3 (0.2-1.0) mg/dL AST 18 (15-37) U/L ALT 28 (16-63) U/L Alkaline Phosphatase 113 (46-116) U/L Troponin I High Sens 28 (<=76) pg/mL C-Reactive Protein 0.3 (0.0-0.9) mg/dL B-Natriuretic Peptide 25 (0-100) pg/ml Total Protein 6.9 (6.4-8.2) g/dL Albumin 2.9 L (3.4-5.0) g/dL Globulin 4.0 Albumin/Globulin Ratio 0.73 Amylase 72 (25-115) U/L Lipase 183 (73-393) U/L Urine Color (YELLOW) Urine Appearance (CLEAR) Urine pH (5.0-9.0) Ur Specific [place] (1.005-1.030) Urine Protein (NEGATIVE) Urine Glucose (UA) (NEGATIVE) Urine Ketones (NEGATIVE) Urine Occult Blood (NEGATIVE) Urine Nitrite (NEGATIVE) Urine Bilirubin (NEGATIVE) Urine Urobilinogen (0.2-1.0) mg/dL Ur Leukocyte Esterase (NEGATIVE) Urine Opiates Screen (NEGATIVE) Ur Oxycodone Screen (NEGATIVE) Urine Methadone Screen (NEGATIVE) Ur Barbiturates Screen (NEGATIVE) U Tricyclic Antidepress (NEGATIVE) Ur Phencyclidine Scrn (NEGATIVE) Ur Amphetamine Screen (NEGATIVE) U Methamphetamines Scrn (NEGATIVE) Urine MDMA Screen (NEGATIVE) U Benzodiazepines Scrn (NEGATIVE) Urine Cocaine Screen (NEGATIVE) U Marijuana (THC) Screen (NEGATIVE) Ethyl Alcohol < 3 (0) mg/dL SARS-CoV-2 RNA (KARMEN) Negative (NEGATIVE) 04/29/21 04/29/21 Range/Units 23:53 23:53 WBC (5.0-10.0) 10^3/uL RBC (4.6-6.2) 10^6/uL Hgb (14.0-18.0) g/dL Hct (40.0-54.0) % MCV (80-100) fL MCH (27.0-34.0) pg MCHC (33.0-35.0) g/dL Plt Count (150-450) 10^3/uL Neut % (Auto) (42.2-75.2) % Lymph % (Auto) (20.5-50.1) % [place] % (Auto) (2-8) % Eos % (Auto) (1.0-3.0) % Baso % (Auto) (0.0-1.0) % Sodium (136-145) mmol/L Potassium (3.5-5.1) mmol/L Chloride (98-107) mmol/L Carbon Dioxide (21-32) mmol/L Anion Gap (7-13) mEq/L BUN (7-18) mg/dL Creatinine (0.70-1.30) mg/dL Est Cr Clr Drug Dosing mL/min Estimated GFR (MDRD) BUN/Creatinine Ratio (No establ ref range) Glucose (70-99) mg/dL Calcium (8.5-10.1) mg/dL Magnesium (1.8-2.4) mg/dL Total Bilirubin (0.2-1.0) mg/dL AST (15-37) U/L ALT (16-63) U/L Alkaline Phosphatase (46-116) U/L Troponin I High Sens (<=76) pg/mL C-Reactive Protein (0.0-0.9) mg/dL B-Natriuretic Peptide (0-100) pg/ml Total Protein (6.4-8.2) g/dL Albumin (3.4-5.0) g/dL Globulin Albumin/Globulin Ratio Amylase (25-115) U/L Lipase (73-393) U/L Urine Color Yellow (YELLOW) Urine Appearance Clear (CLEAR) Urine pH 8.0 (5.0-9.0) Ur Specific [place] 1.020 (1.005-1.030) Urine Protein Negative (NEGATIVE) Urine Glucose (UA) Negative (NEGATIVE) Urine Ketones Negative (NEGATIVE) Urine Occult Blood Negative (NEGATIVE) Urine Nitrite Negative (NEGATIVE) Urine Bilirubin Negative (NEGATIVE) Urine Urobilinogen 0.2 (0.2-1.0) mg/dL Ur Leukocyte Esterase Negative (NEGATIVE) Urine Opiates Screen Negative (NEGATIVE) Ur Oxycodone Screen Negative (NEGATIVE) Urine Methadone Screen Negative (NEGATIVE) Ur Barbiturates Screen Negative (NEGATIVE) U Tricyclic Antidepress Negative (NEGATIVE) Ur Phencyclidine Scrn Negative (NEGATIVE) Ur Amphetamine Screen Negative (NEGATIVE) U Methamphetamines Scrn Negative (NEGATIVE) Urine MDMA Screen Negative (NEGATIVE) U Benzodiazepines Scrn Negative (NEGATIVE) Urine Cocaine Screen Negative (NEGATIVE) U Marijuana (THC) Screen Negative (NEGATIVE) Ethyl Alcohol (0) mg/dL SARS-CoV-2 RNA (KARMEN) (NEGATIVE) Meds: Medications Discontinued Medications Generic Name Dose Route Start Last Admin Trade Name Freq PRN Reason Stop Dose Admin Al Hydroxide/Mg Hydroxide 30 ml 04/29/21 22:05 04/29/21 22:19 Gi Cocktail Oral Solution 30 Ml PO 04/29/21 22:06 30 ml ONETIME ONE Administration Iopamidol 100 ml 04/30/21 00:07 04/30/21 01:02 Iopamidol 612 Mg/Ml 100 Ml Bottle IVPUSH 04/30/21 00:08 100 ml ONETIME ONE Administration Ondansetron HCl 4 mg 04/30/21 00:00 04/30/21 00:07 Ondansetron 4 Mg/2 Ml Sdv IVPUSH 04/30/21 00:01 4 mg ONETIME ONE Administration - Radiology Interpretation Free Text/Narrative:: [facility] Final Radiology Report Call: [phone] assistance Online chat: [email or web address] Name: JOANIE VICK Age: 41Years M Date: 04/29/2021 SSN: -- : 1980 Study: CR CHEST 1V FRONTAL Requesting Physician: Marlyn Muniz Images: 1 Addl Studies: Provided Clinical History: Chest pain; Shortness of breath; Rales LYLY Contrast: Contrast Medium: Contrast Amount: Contrast Method: CONFIDENTIALITY STATEMENT This report is intended only for use by the referring physician, and only in accordance with law. If you received this in error, call [phone]. Page 1 of 1 PROCEDURE INFORMATION: Exam: XR Chest Exam date and time: 04/29/2021 10:11 PM Age: 41 years old Clinical indication: Pain; Shortness of breath; Right-sided; Additional info: Chest pain; Shortness of breath; Rales lyly TECHNIQUE: Imaging protocol: XR of the chest. Views: 1 view. COMPARISON: CT Chest Abdomen Pelvis wo Cont 12/19/2020 2:30 AM FINDINGS: Lungs: Lungs are clear bilaterally. Pleural spaces: No pleural effusion. No pneumothorax. Heart/Mediastinum: Stable small hiatal hernia. Bones/joints: Unremarkable for age. IMPRESSION: 1. No acute cardiopulmonary process. 2. Stable small hiatal hernia. Thank you for allowing us to participate in the care of your patient. Dictated and Authenticated by: Sofy Colin MD 04/29/2021 10:55 PM Central Time ([place] & [place]) [facility] [place] [facility] Final Radiology Report Call: [phone] assistance Online chat: [email or web address] Name: JOANIE VICK Age: 41Years M Date: 04/30/2021 SSN: -- : 1980 Study: CT ABDOMEN PELVIS W CONT Requesting Physician: Marlyn Muniz Images: [id number] Addl Studies: Provided Clinical History: WBC 12.4 right, upper abdominal pain Contrast: With Contrast Medium: Isovue 300 Contrast Amount: 100 mL Contrast Method: Intravenous (IV) Page 1 of 2 PROCEDURE INFORMATION: Exam: CT Abdomen And Pelvis With Contrast Exam date and time: 04/30/2021 12:55 AM Age: 41 years old Clinical indication: Abdominal pain; Localized; Upper; Additional info: Wbc 12.4 right, upper abdominal pain TECHNIQUE: Imaging protocol: Computed tomography of the abdomen and pelvis with contrast. Radiation optimization: All CT scans at this facility use at least one of these dose optimization techniques: automated exposure control; mA and/or kV adjustment per patient size (includes targeted exams where dose is matched to clinical indication); or iterative reconstruction. Contrast material: ISOVUE 300; Contrast volume: 100 ml; Contrast route: INTRAVENOUS (IV); COMPARISON: CT Chest Abdomen Pelvis wo Cont 12/19/2020 2:30 AM FINDINGS: Lungs: The visualized portions of the lung bases are normal. Mediastinal space: A small hiatal hernia is present. The stomach is mildly dilated and fluid-filled with narrowing in the region of the duodenal bulb. Consider peptic ulcer disease. Liver: Normal. No mass. Gallbladder and bile ducts: Normal. No calcified stones. No ductal dilation. Pancreas: Normal. No ductal dilation. Spleen: Normal. No splenomegaly. Adrenal glands: Normal. No mass. Kidneys and ureters: Normal. No hydronephrosis. Stomach and bowel: Uncomplicated diverticula are seen throughout the colon. Appendix: No evidence of appendicitis. Intraperitoneal space: Unremarkable. No free air. No significant fluid collection. Vasculature: Unremarkable. No abdominal aortic aneurysm. Lymph nodes: Unremarkable. No enlarged lymph nodes. Urinary bladder: Unremarkable as visualized. Reproductive: Unremarkable as visualized. Bones/joints: An old healed right 8th rib posterior rib fractures are incidentally noted. Soft tissues: A small umbilical hernia is noted containing only fat. IMPRESSION: Hiatal hernia . 2. Dilated stomach with narrowing in the region of the duodenal bulb. 3. [place] diverticulosis. 4. Small umbilical hernia. 5. Old healed right rib fractures. Thank you for allowing us to participate in the care of your patient. Dictated and Authenticated by: Jesús Neumann MD 04/30/2021 2:20 AM Central Time ([place] & [place]) - Re-Assessments/Exams Free Text/Narrative Re-Assessment/Exam: 04/29/21 COVID swab sent. GI cocktail administered. Will obtain CT abdomen/pelvis given WBC, persistent pain, and emesis x1 in ED. Findings of examination, imaging, and lab work reviewed with patient. Will treat peptic ulcer with omeprazole. Supportive cares for breakthrough pain discussed. Red flag signs and symptoms which would warrant reevaluation reviewed. Patient instructed to follow up with PCP following course of omeprazole. Patient verbalized understanding and agreement with the plan of care. Departure - Departure Time of Disposition: 02:38 Disposition: Home, Self-Care 01 Condition: Good Clinical Impression: Hiatal hernia, Atypical chest pain, Hypokalemia, Diverticulosis, Peptic ulcer disease Umbilical hernia Qualifiers: Obstruction and gangrene presence: with obstruction but without gangrene Qualified Code(s): K42.0 - Umbilical hernia with obstruction, without gangrene Forms: ED Department Discharge Additional Instructions: Rx: omeprazole 1.) Eat a bland, easily digestible diet; avoid spicy, greasy, high-fat foods. 2.) Drink plenty of water to stay hydrated. 3.) You may take TUMS, Maalox, or Pepcid for breakthrough pain 4.) Follow up with your primary care provider following course of omeprazole, sooner should symptoms persist. Sepsis Event Note (ED) - Focused Exam Vital Signs: Vital Signs Temp Pulse Resp BP Pulse Ox 04/29/21 21:21 97.6 F 90 18 114/77 97 - My Orders Last 24 Hours: My Active Orders 04/30/21 00:07 CTA Abd Pelv w Cont [CT] Urgent - Assessment/Plan Last 24 Hours: My Active Orders 04/30/21 00:07 CTA Abd Pelv w Cont [CT] Urgent
--- NOTE | 2021-04-29 22:55 | CR ---
PROCEDURE INFORMATION: Exam: XR Chest Exam date and time: 04/29/2021 10:11 PM Age: 41 years old Clinical indication: Pain; Shortness of breath; Right-sided; Additional info: Chest pain; Shortness of breath; Rales lyly TECHNIQUE: Imaging protocol: XR of the chest. Views: 1 view. COMPARISON: CT Chest Abdomen Pelvis wo Cont 12/19/2020 2:30 AM FINDINGS: Lungs: Lungs are clear bilaterally. Pleural spaces: No pleural effusion. No pneumothorax. Heart/Mediastinum: Stable small hiatal hernia. Bones/joints: Unremarkable for age. IMPRESSION: 1. No acute cardiopulmonary process. 2. Stable small hiatal hernia.
[2021-04-30] MEDS ORDERED: Ondansetron 4 MG/2 ML SDV IVPUSH ONE
[2021-04-30 00:04] LABS: AMPHETAMINES,URINE NEGATIVE (NEGATIVE); BARBITURATES,URINE NEGATIVE (NEGATIVE); BENZODIAZEPINE,URINE NEGATIVE (NEGATIVE); MDMA (ECSTASY), URINE NEGATIVE (NEGATIVE); METHADONE,URINE NEGATIVE (NEGATIVE); METHAMPHETAMINES,URINE NEGATIVE (NEGATIVE); OPIATES,URINE NEGATIVE (NEGATIVE); OXYCODONE,URINE NEGATIVE (NEGATIVE); PHENCYCLIDINE,URINE NEGATIVE (NEGATIVE); TCA,URINE NEGATIVE (NEGATIVE)
[2021-04-30] MEDS ORDERED: Iopamidol 612 MG/ML 100 ML Bottle IVPUSH ONE (00:07)
--- NOTE | 2021-04-30 02:20 | CT ---
PROCEDURE INFORMATION: Exam: CT Abdomen And Pelvis With Contrast Exam date and time: 04/30/2021 12:55 AM Age: 41 years old Clinical indication: Abdominal pain; Localized; Upper; Additional info: Wbc 12.4 right, upper abdominal pain TECHNIQUE: Imaging protocol: Computed tomography of the abdomen and pelvis with contrast. Radiation optimization: All CT scans at this facility use at least one of these dose optimization techniques: automated exposure control; mA and/or kV adjustment per patient size (includes targeted exams where dose is matched to clinical indication); or iterative reconstruction. Contrast material: ISOVUE 300; Contrast volume: 100 ml; Contrast route: INTRAVENOUS (IV); COMPARISON: CT Chest Abdomen Pelvis wo Cont 12/19/2020 2:30 AM FINDINGS: Lungs: The visualized portions of the lung bases are normal. Mediastinal space: A small hiatal hernia is present. The stomach is mildly dilated and fluid-filled with narrowing in the region of the duodenal bulb. Consider peptic ulcer disease. Liver: Normal. No mass. Gallbladder and bile ducts: Normal. No calcified stones. No ductal dilation. Pancreas: Normal. No ductal dilation. Spleen: Normal. No splenomegaly. Adrenal glands: Normal. No mass. Kidneys and ureters: Normal. No hydronephrosis. Stomach and bowel: Uncomplicated diverticula are seen throughout the colon. Appendix: No evidence of appendicitis. Intraperitoneal space: Unremarkable. No free air. No significant fluid collection. Vasculature: Unremarkable. No abdominal aortic aneurysm. Lymph nodes: Unremarkable. No enlarged lymph nodes. Urinary bladder: Unremarkable as visualized. Reproductive: Unremarkable as visualized. Bones/joints: An old healed right 8th rib posterior rib fractures are incidentally noted. Soft tissues: A small umbilical hernia is noted containing only fat. IMPRESSION: Hiatal hernia . 2. Dilated stomach with narrowing in the region of the duodenal bulb. 3. [place] diverticulosis. 4. Small umbilical hernia. 5. Old healed right rib fractures.
== END 2021-04-30 02:41 | disposition home or self-care (01) ==
LOC: DL.ED 21:15
DX: R07.89 Other chest pain (principal); K42.0 Umbilical hernia with obstruction, without gangrene; K44.9 Diaphragmatic hernia without obstruction or gangrene; K27.9 Peptic ulcer, site unspecified, unspecified as acute or chronic, without hemorrhage or perforation; K57.90 Diverticulosis of intestine, part unspecified, without perforation or abscess without bleeding; E87.6 Hypokalemia; I10 Essential (primary) hypertension; Z72.0 Tobacco use; Z20.822 Contact with and (suspected) exposure to COVID-19
CPT/HCPCS: 36415; 71045; 74177; 80053; 80305; 80307; 81003; 82150; 83690; 83735; 83880; 84484; 85025; 86140; 87635; 93005; 96374; 99285; A9270; J2405; Q9967; U0002

== ENCOUNTER 2022-05-02 18:41 | Emergency (ER) | payer MEDICAID ==
[2022-05-02 18:34] VITALS: BP 134/79; PULSE 75
[2022-05-02 18:58] LABS: AMPHETAMINES,URINE NEGATIVE (NEGATIVE); BARBITURATES,URINE NEGATIVE (NEGATIVE); BENZODIAZEPINE,URINE NEGATIVE (NEGATIVE); MDMA (ECSTASY), URINE NEGATIVE (NEGATIVE); METHADONE,URINE NEGATIVE (NEGATIVE); METHAMPHETAMINES,URINE POSITIVE (NEGATIVE); OPIATES,URINE NEGATIVE (NEGATIVE); OXYCODONE,URINE NEGATIVE (NEGATIVE); PHENCYCLIDINE,URINE NEGATIVE (NEGATIVE); TCA,URINE NEGATIVE (NEGATIVE)
== END 2022-05-02 19:13 | disposition left against medical advice (07) ==
LOC: DL.ED 18:41
DX: Z53.21 Procedure and treatment not carried out due to patient leaving prior to being seen by health care provider (principal)
CPT/HCPCS: 80305-QW

== ENCOUNTER 2022-12-28 19:09 | Emergency (ER) | payer MEDICAID ==
[2022-12-28] MEDS ORDERED: Sodium Chloride 0.9% 1,000 ML IV STA (19:20)
[2022-12-28] MEDS ORDERED: Sodium Chloride 0.9% 10 ML Syringe FLUSH PRN (19:20)
[2022-12-28] MEDS ORDERED: Ketorolac 30 MG/ML SDV IVPUSH ONE (19:24)
[2022-12-28] MEDS ORDERED: Ondansetron 4 MG in Sodium Chloride 0.9% 50 ML IV ONE (19:24)
[2022-12-28] MEDS ORDERED: Sodium Chloride 0.9% 1,000 ML IV ONE (19:26)
[2022-12-28 19:29] LABS: BASOPHILS PERCENT AUTO 0.2 % (0.0-1.0); EOSINOPHILS PERCENT AUTO 3.1 % (1.0-3.0); HEMATOCRIT 31.6 % (40.0-54.0); HEMOGLOBIN 9.4 g/dL (14.0-18.0); LYMPHOCYTES PERCENT AUTO 9.4 % (20.5-50.1); MEAN CORPUSCULAR HEMOGLOBIN 19.2 pg (27.0-34.0); MEAN CORPUSCULAR HGB CONC 29.7 g/dL (33.0-35.0); MEAN CORPUSCULAR VOLUME 64.5 fL (80-100); MONOCYTES PERCENT AUTO 6.3 % (2-8); PLATELET COUNT,PLT 517 10^3/uL (150-450); WHITE BLOOD CELL COUNT,WBC 17.2 10^3/uL (5.0-10.0)
[2022-12-28 19:31] VITALS: BP 151/107; PULSE 83
[2022-12-28 19:42] LABS: A/G RATIO 0.81; ANION GAP 10.7 mEq/L (7-13); BILIRUBIN TOTAL 0.5 mg/dL (0.2-1.0); BUN/CREATININE RATIO 11.8 (No establ ref range); CALCIUM 9.4 mg/dL (8.5-10.1); CREATININE 1.02 mg/dL (0.70-1.30); EST CRCL DRUG DOSING (CG) 98.43 mL/min; POTASSIUM,K 3.7 mmol/L (3.5-5.1); PROTEIN TOTAL,TP 6.7 g/dL (6.4-8.2)
[2022-12-28] MEDS ORDERED: Ondansetron 4 MG/2 ML SDV IVPUSH ONE (19:47)
[2022-12-28 20:54] LABS: APPEARANCE,URINE CLEAR (CLEAR); BILIRUBIN,URINE NEGATIVE (NEGATIVE); COLOR,URINE YELLOW (YELLOW); GLUCOSE,URINE NEGATIVE (NEGATIVE); KETONES,URINE NEGATIVE (NEGATIVE); LEUKOCYTE ESTERASE,URINE NEGATIVE (NEGATIVE); NITRITE,URINE NEGATIVE (NEGATIVE); OCCULT BLOOD,URINE NEGATIVE (NEGATIVE); PH,URINE 8.5 (5.0-9.0); PROTEIN,URINE NEGATIVE (NEGATIVE); UROBILINOGEN,URINE 0.2 mg/dL (0.2-1.0)
[2022-12-28] MEDS ORDERED: GI Cocktail Oral Solution 30 ML PO ONE ×2 (21:10→21:58)
[2022-12-28] MEDS ORDERED: Pantoprazole 40 MG in Sodium Chloride 0.9% 100 ML IV SCH (21:11)
[2022-12-28 21:36] LABS: AMORPHOUS SEDIMENT,URINE RARE /HPF (NOT SEEN); BACTERIA,URINE FEW /HPF (0-FEW/HPF); EPITHELIAL CELLS,URINE NOT SEEN /HPF (NOT SEEN); MUCUS,URINE RARE /LPF (NOT SEEN); RBC,URINE 0-5 /HPF (0-5); WBC,URINE 0-5 /HPF (0-5/HPF)
[2022-12-28] MEDS ORDERED: Pantoprazole 40 MG Vial IVPUSH ONE (21:42)
[2022-12-28] MEDS ORDERED: Take Home: Acetaminophen/HYDROcodone 325-5 MG, 5 Tab Pack PO ONE (23:39)
== END 2022-12-28 23:59 | disposition home or self-care (01) ==
LOC: DL.ED 19:09
DX: K44.9 Diaphragmatic hernia without obstruction or gangrene (principal); K21.00 Gastro-esophageal reflux disease with esophagitis, without bleeding; I10 Essential (primary) hypertension
CPT/HCPCS: 36415; 74176; 80053; 81001; 83690; 84484; 85025; 93005; 93010; 96361; 96374; 96375; 99284; 99284-25; A9270-GY; C9113; J1885; J2405; J3490; J7030

== ENCOUNTER 2023-03-17 22:05 | Inpatient (IN) | payer MEDICAID ==
[2023-03-17 22:31] LABS: BASOPHILS PERCENT AUTO 1.5 % (0.0-1.0); EOSINOPHILS PERCENT AUTO 2.5 % (1.0-3.0); HEMOGLOBIN 8.1 g/dL (14.0-18.0); MEAN CORPUSCULAR HEMOGLOBIN 19.2 pg (27.0-34.0); MONOCYTES PERCENT AUTO 17.3 % (2-8); NEUTROPHILS PERCENT AUTO 36.7 % (42.2-75.2); PLATELET COUNT,PLT 294 10^3/uL (150-450); RED BLOOD CELL COUNT 4.22 10^6/uL (4.6-6.2)
[2023-03-17 22:41] LABS: ALBUMIN 3.1 g/dL (3.4-5.0); ANION GAP 15.3 mEq/L (7-13); BUN/CREATININE RATIO 6.1 (No establ ref range); CALCIUM 8.6 mg/dL (8.5-10.1); CREATININE 1.15 mg/dL (0.70-1.30); EST CRCL DRUG DOSING (CG) 87.3 mL/min; POTASSIUM,K 3.3 mmol/L (3.5-5.1); PROTEIN TOTAL,TP 7.7 g/dL (6.4-8.2)
[2023-03-17 22:43] LABS: A/G RATIO 0.67
[2023-03-17 23:01] LABS: PROTHROMBIN TIME 9.9 SEC (9.0-12.0); PTT,PARTIAL THROMBOPLSTIN TIME 24.5 SEC (22.0-34.0)
[2023-03-17] MEDS: Heparin Sodium/0.45% NaCl 25,000 UNITS/500 ML BAG IV SCH (23:48)
[2023-03-17] MEDS ORDERED: Heparin Sodium 5,000 Units/ML Vial IVPUSH ONE (23:57)
[2023-03-18] MEDS ORDERED: Sennosides/Docusate Sodium 50-8.6 MG Tab PO PRN (00:35)
[2023-03-18] MEDS ORDERED: Albuterol/Ipratropium 3.0-0.5 MG/3 ML Neb Soln NEB PRN (00:35)
[2023-03-18] MEDS ORDERED: Polyethylene Glycol 3350 Powder 17 GM Packet PO PRN (00:35)
[2023-03-18] MEDS ORDERED: Ondansetron 4 MG/2 ML SDV IVPUSH PRN (00:35)
[2023-03-18] MEDS ORDERED: Magnesium Hydroxide 400 MG/5 ML Susp 30 ML Cup PO PRN (00:35)
[2023-03-18] MEDS ORDERED: Naloxone 2 MG/2 ML Syringe IVPUSH PRN (00:35)
[2023-03-18] MEDS ORDERED: Acetaminophen 325 MG Tab PO PRN (00:35)
[2023-03-18] MEDS ORDERED: MVI, Adult with Vitamin K 10 ML, Folic Acid 1 MG, Thiamine 100 MG in Lactated Ringers 1... IV ONE ×4 (00:39)
[2023-03-18] MEDS ORDERED: cloNIDine 0.1 MG Tab PO PRN (00:39)
[2023-03-18] MEDS ORDERED: LORazepam 2 MG/ML SDV IV PRN (00:39)
[2023-03-18] MEDS ORDERED: Diazepam 5 MG Tab PO PRN (00:39)
[2023-03-18] MEDS ORDERED: LORazepam 2 MG/ML SDV IVPUSH PRN (00:45)
[2023-03-18] MEDS ORDERED: hydrALAZINE 20 MG/ML SDV IVPUSH PRN (00:45)
[2023-03-18] MEDS ORDERED: Flumazenil 0.1 MG/ML 5 ML MDV IVPUSH PRN (00:45)
[2023-03-18] MEDS ORDERED: Metoprolol Tartrate 5 MG/5 ML SDV IVPUSH PRN (00:45)
[2023-03-18] MEDS: HYDROmorphone 0.5 MG/0.5 ML Syringe IVPUSH PRN ×4 (01:00→20:21)
[2023-03-18 01:36] LABS: APPEARANCE,URINE CLEAR (CLEAR); BILIRUBIN,URINE NEGATIVE (NEGATIVE); COLOR,URINE YELLOW (YELLOW); GLUCOSE,URINE NEGATIVE (NEGATIVE); KETONES,URINE NEGATIVE (NEGATIVE); LEUKOCYTE ESTERASE,URINE NEGATIVE (NEGATIVE); NITRITE,URINE NEGATIVE (NEGATIVE); OCCULT BLOOD,URINE NEGATIVE (NEGATIVE); PROTEIN,URINE NEGATIVE (NEGATIVE)
[2023-03-18 01:41] LABS: AMPHETAMINES,URINE NEGATIVE (NEGATIVE); BARBITURATES,URINE NEGATIVE (NEGATIVE); BENZODIAZEPINE,URINE NEGATIVE (NEGATIVE); MDMA (ECSTASY), URINE NEGATIVE (NEGATIVE); METHADONE,URINE NEGATIVE (NEGATIVE); METHAMPHETAMINES,URINE POSITIVE (NEGATIVE); OPIATES,URINE NEGATIVE (NEGATIVE); OXYCODONE,URINE NEGATIVE (NEGATIVE); PHENCYCLIDINE,URINE NEGATIVE (NEGATIVE); TCA,URINE NEGATIVE (NEGATIVE)
[2023-03-18] MEDS: Pantoprazole 40 MG Vial IVPUSH SCH (05:52)
[2023-03-18 06:37] LABS: BASOPHILS PERCENT AUTO 0.7 % (0.0-1.0); EOSINOPHILS PERCENT AUTO 3.4 % (1.0-3.0); HEMATOCRIT 25.7 % (40.0-54.0); HEMOGLOBIN 7.5 g/dL (14.0-18.0); LYMPHOCYTES PERCENT AUTO 53.7 % (20.5-50.1); MEAN CORPUSCULAR HGB CONC 29.2 g/dL (33.0-35.0); MEAN CORPUSCULAR VOLUME 65.1 fL (80-100); MONOCYTES PERCENT AUTO 16.5 % (2-8); NEUTROPHILS PERCENT AUTO 25.7 % (42.2-75.2); PLATELET COUNT,PLT 264 10^3/uL (150-450); RED BLOOD CELL COUNT 3.95 10^6/uL (4.6-6.2); WHITE BLOOD CELL COUNT,WBC 4.4 10^3/uL (5.0-10.0)
[2023-03-18 06:53] LABS: ALBUMIN 2.7 g/dL (3.4-5.0); ANION GAP 13.5 mEq/L (7-13); BILIRUBIN TOTAL 0.9 mg/dL (0.2-1.0); CALCIUM 7.9 mg/dL (8.5-10.1); CREATININE 0.86 mg/dL (0.70-1.30); EST CRCL DRUG DOSING (CG) 116.74 mL/min; MAGNESIUM 1.8 mg/dL (1.8-2.4); POTASSIUM,K 3.5 mmol/L (3.5-5.1); PROTEIN TOTAL,TP 6.6 g/dL (6.4-8.2)
[2023-03-18 06:54] LABS: A/G RATIO 0.69
[2023-03-18] MEDS ORDERED: Thiamine 100 MG in Sodium Chloride 0.9% 50 ML IV SCH (09:00)
[2023-03-18] MEDS ORDERED: Thiamine 200 MG/2 ML MDV IV SCH (09:00)
[2023-03-18] MEDS: oxyCODONE ER 10 MG TAB.ER PO SCH ×2 (09:47→20:20)
[2023-03-18] MEDS: Thiamine 100 MG Tab PO SCH (09:48)
[2023-03-18] MEDS: Nicotine 21 MG/24 Hr Patch TRDERM SCH (09:49)
[2023-03-18 09:50] LABS: PERCENT FE SATURATION 4.3 % (20.0-50.0)
[2023-03-18] MEDS: Sucralfate Suspension 1 GM/10 ML Cup PO SCH ×3 (11:25→20:19)
[2023-03-18] MEDS: Acetaminophen/oxyCODONE 325-5 MG Tab PO PRN ×2 (11:32→15:52)
[2023-03-18] MEDS: LORazepam 0.5 MG Tab PO PRN ×3 (11:33→20:21)
[2023-03-18] MEDS: Heparin Sodium/0.45% NaCl 25,000 UNITS/500 ML BAG IV SCH (15:05)
[2023-03-18] MEDS ORDERED: Dextrose 5%-0.9% NaCl 1,000 ML IV SCH (19:00)
[2023-03-18] MEDS: Multivitamin Tab PO SCH (20:20)
[2023-03-18 20:23] LABS: HEMOGLOBIN 7.4 g/dL (14.0-18.0)
[2023-03-18] MEDS: Folic Acid 1 MG Tab PO SCH (20:33)
[2023-03-18] MEDS ORDERED: Heparin Sodium 5,000 Units/ML Vial IVPUSH ONE (22:07)
[2023-03-19] MEDS: Pantoprazole 40 MG Vial IVPUSH SCH (05:22)
[2023-03-19] MEDS: Heparin Sodium/0.45% NaCl 25,000 UNITS/500 ML BAG IV SCH (06:00)
[2023-03-19 06:22] LABS: BASOPHILS PERCENT AUTO 0.2 % (0.0-1.0); EOSINOPHILS PERCENT AUTO 1.9 % (1.0-3.0); HEMATOCRIT 25.9 % (40.0-54.0); HEMOGLOBIN 7.5 g/dL (14.0-18.0); LYMPHOCYTES PERCENT AUTO 11.1 % (20.5-50.1); MEAN CORPUSCULAR HEMOGLOBIN 19.1 pg (27.0-34.0); MEAN CORPUSCULAR VOLUME 66.1 fL (80-100); MONOCYTES PERCENT AUTO 7.9 % (2-8); NEUTROPHILS PERCENT AUTO 78.9 % (42.2-75.2); PLATELET COUNT,PLT 218 10^3/uL (150-450); RED BLOOD CELL COUNT 3.92 10^6/uL (4.6-6.2); WHITE BLOOD CELL COUNT,WBC 10.1 10^3/uL (5.0-10.0)
[2023-03-19 06:50] LABS: ALBUMIN 2.6 g/dL (3.4-5.0); ANION GAP 8.5 mEq/L (7-13); BILIRUBIN TOTAL 1.6 mg/dL (0.2-1.0); BUN/CREATININE RATIO 7.7 (No establ ref range); CALCIUM 8.3 mg/dL (8.5-10.1); CREATININE 0.78 mg/dL (0.70-1.30); EST CRCL DRUG DOSING (CG) 128.72 mL/min; MAGNESIUM 1.5 mg/dL (1.8-2.4); POTASSIUM,K 3.5 mmol/L (3.5-5.1); PROTEIN TOTAL,TP 6.4 g/dL (6.4-8.2)
[2023-03-19 07:00] LABS: A/G RATIO 0.68
[2023-03-19] MEDS ORDERED: Magnesium Sulfate/Water 2 GM in Premix Bag 1 BAG IV ONE (08:00)
[2023-03-19] MEDS: oxyCODONE ER 10 MG TAB.ER PO SCH ×2 (09:13→21:05)
[2023-03-19] MEDS: Thiamine 100 MG Tab PO SCH (09:13)
[2023-03-19] MEDS: Folic Acid 1 MG Tab PO SCH (09:13)
[2023-03-19] MEDS: Nicotine 21 MG/24 Hr Patch TRDERM SCH (09:13)
[2023-03-19] MEDS: Sucralfate Suspension 1 GM/10 ML Cup PO SCH ×4 (09:13→21:06)
[2023-03-19] MEDS: Multivitamin Tab PO SCH (09:14)
[2023-03-19] MEDS ORDERED: Heparin Sodium 5,000 Units/ML Vial IVPUSH STA ×2 (10:08→18:33)
[2023-03-19] MEDS ORDERED: Heparin Sodium/0.45% NaCl 25,000 UNITS/500 ML BAG IV SCH (10:45)
[2023-03-19] MEDS: LORazepam 1 MG Tab PO PRN ×2 (11:20→22:51)
[2023-03-19] MEDS ORDERED: Bisacodyl 10 MG Supp RECTAL PRN (15:35)
[2023-03-19] MEDS ORDERED: Apixaban 5 MG Tab PO SCH (22:30)
[2023-03-20] MEDS: Pantoprazole 40 MG Vial IVPUSH SCH (05:41)
[2023-03-20 06:07] LABS: BASOPHILS PERCENT AUTO 0.2 % (0.0-1.0); EOSINOPHILS PERCENT AUTO 5.9 % (1.0-3.0); HEMATOCRIT 27.2 % (40.0-54.0); HEMOGLOBIN 7.8 g/dL (14.0-18.0); LYMPHOCYTES PERCENT AUTO 20.3 % (20.5-50.1); MEAN CORPUSCULAR HEMOGLOBIN 19.4 pg (27.0-34.0); MEAN CORPUSCULAR HGB CONC 28.7 g/dL (33.0-35.0); MEAN CORPUSCULAR VOLUME 67.5 fL (80-100); MONOCYTES PERCENT AUTO 8.9 % (2-8); NEUTROPHILS PERCENT AUTO 64.7 % (42.2-75.2); PLATELET COUNT,PLT 240 10^3/uL (150-450); RED BLOOD CELL COUNT 4.03 10^6/uL (4.6-6.2)
[2023-03-20 06:25] LABS: A/G RATIO 0.63; ALBUMIN 2.6 g/dL (3.4-5.0); ANION GAP 11.5 mEq/L (7-13); BUN/CREATININE RATIO 6.6 (No establ ref range); CALCIUM 8.4 mg/dL (8.5-10.1); CREATININE 0.76 mg/dL (0.70-1.30); EST CRCL DRUG DOSING (CG) 132.11 mL/min; MAGNESIUM 1.8 mg/dL (1.8-2.4); POTASSIUM,K 3.5 mmol/L (3.5-5.1); PROTEIN TOTAL,TP 6.7 g/dL (6.4-8.2)
[2023-03-20] MEDS: Sucralfate Suspension 1 GM/10 ML Cup PO SCH (07:30)
[2023-03-20 07:50] VITALS: BP 146/85; PULSE 90
[2023-03-20] MEDS ORDERED: Ferrous Sulfate 325 MG Tab PO SCH (09:00)
[2023-03-20] MEDS ORDERED: Apixaban 5 MG Tab PO SCH ×2 (09:00)
[2023-03-20] MEDS: Thiamine 100 MG Tab PO SCH (09:23)
[2023-03-20] MEDS: Folic Acid 1 MG Tab PO SCH (09:23)
[2023-03-20] MEDS: Multivitamin Tab PO SCH (09:23)
[2023-03-20] MEDS: oxyCODONE ER 10 MG TAB.ER PO SCH (09:24)
[2023-03-20] MEDS: Nicotine 21 MG/24 Hr Patch TRDERM SCH (09:33)
[2023-03-20] MEDS ORDERED: Sucralfate 1 GM Tab PO SCH (14:00)
[2023-03-20] MEDS ORDERED: Pantoprazole 40 MG Tab.CR PO SCH (16:00)
== END 2023-03-20 13:25 | disposition home or self-care (01) | DRG 301 ==
LOC: DL.ED 22:05 → UNDOADMIN 03-18 00:30 → DL.MS 03-18 00:30
PROVIDERS: ADMIT Internal Medicine; ATTEND Internal Medicine
DX: I82.401 Acute embolism and thrombosis of unspecified deep veins of right lower extremity (principal); F10.129 Alcohol abuse with intoxication, unspecified; K21.9 Gastro-esophageal reflux disease without esophagitis; I10 Essential (primary) hypertension; K44.9 Diaphragmatic hernia without obstruction or gangrene; K20.90 Esophagitis, unspecified without bleeding; D50.9 Iron deficiency anemia, unspecified; E87.6 Hypokalemia; R73.9 Hyperglycemia, unspecified; F41.9 Anxiety disorder, unspecified; F17.210 Nicotine dependence, cigarettes, uncomplicated; Y90.8 Blood alcohol level of 240 mg/100 ml or more; R79.89 Other specified abnormal findings of blood chemistry; Z87.81 Personal history of (healed) traumatic fracture; Z98.890 Other specified postprocedural states; Z86.711 Personal history of pulmonary embolism; Z79.01 Long term (current) use of anticoagulants; Z86.73 Personal history of transient ischemic attack (TIA), and cerebral infarction without residual deficits
CPT/HCPCS: 36415; 80053; 80305-QW; 80307; 81003; 83540; 83550; 83735; 85014; 85018; 85025; 85610; 85730; 93970; 96365; 99223; 99232; 99233; 99238; 99284; 99285-25; A9270-GY; C9113; J1170; J1644; J2060; J2405; J3360; J3411; J3475; J3490; J7042; J7120

== ENCOUNTER 2023-04-24 20:16 | Emergency (ER) | payer MEDICAID ==
[2023-04-24 20:30] VITALS: BP 150/115; PULSE 107
[2023-04-24] MEDS ORDERED: Sodium Chloride 0.9% 10 ML Syringe FLUSH PRN (20:31)
[2023-04-24] MEDS ORDERED: Ketorolac 30 MG/ML SDV IVPUSH ONE (20:31)
[2023-04-24 20:51] LABS: BASOPHILS PERCENT AUTO 0.5 % (0.0-1.0); HEMOGLOBIN 10.1 g/dL (14.0-18.0); LYMPHOCYTES PERCENT AUTO 13.6 % (20.5-50.1); MEAN CORPUSCULAR HEMOGLOBIN 20.3 pg (27.0-34.0); MEAN CORPUSCULAR HGB CONC 29.7 g/dL (33.0-35.0); MEAN CORPUSCULAR VOLUME 68.4 fL (80-100); MONOCYTES PERCENT AUTO 14.8 % (2-8); NEUTROPHILS PERCENT AUTO 70.1 % (42.2-75.2); PLATELET COUNT,PLT 522 10^3/uL (150-450); RED BLOOD CELL COUNT 4.97 10^6/uL (4.6-6.2); WHITE BLOOD CELL COUNT,WBC 9.3 10^3/uL (5.0-10.0)
[2023-04-24] MEDS ORDERED: Calcium Carbonate 500 MG Tab.Chew PO ONE (20:53)
[2023-04-24 21:15] LABS: A/G RATIO 0.72; ALBUMIN 3.1 g/dL (3.4-5.0); ANION GAP 11.9 mEq/L (7-13); BILIRUBIN TOTAL 0.8 mg/dL (0.2-1.0); BUN/CREATININE RATIO 6.6 (No establ ref range); CALCIUM 9.2 mg/dL (8.5-10.1); CREATININE 1.21 mg/dL (0.70-1.30); EST CRCL DRUG DOSING (CG) 67.06 mL/min; POTASSIUM,K 3.9 mmol/L (3.5-5.1); PROTEIN TOTAL,TP 7.4 g/dL (6.4-8.2)
== END 2023-04-24 21:35 | disposition home or self-care (01) ==
LOC: DL.ED 20:16
DX: K21.9 Gastro-esophageal reflux disease without esophagitis (principal); Z79.01 Long term (current) use of anticoagulants; Z79.899 Other long term (current) drug therapy
CPT/HCPCS: 36415; 71045; 80053; 84484; 85025; 93005; 93010; 96374; 99284; 99285-25; A9270-GY; J1885; J3490

== ENCOUNTER 2023-05-17 23:26 | Emergency (ER) | payer MEDICAID ==
[~2023-05-17 23:26] MED LIST: Lactated Ringers 1,000 ML IV ONE; Ondansetron 4 MG/2 ML SDV IVPUSH ONE
[2023-05-17 23:31] LABS: BASOPHILS PERCENT AUTO 0.4 % (0.0-1.0); EOSINOPHILS PERCENT AUTO 0.5 % (1.0-3.0); HEMATOCRIT 32.8 % (40.0-54.0); LYMPHOCYTES PERCENT AUTO 19.3 % (20.5-50.1); MEAN CORPUSCULAR HEMOGLOBIN 20.2 pg (27.0-34.0); MEAN CORPUSCULAR HGB CONC 30.5 g/dL (33.0-35.0); MEAN CORPUSCULAR VOLUME 66.3 fL (80-100); MONOCYTES PERCENT AUTO 11.3 % (2-8); NEUTROPHILS PERCENT AUTO 68.5 % (42.2-75.2); PLATELET COUNT,PLT 519 10^3/uL (150-450); RED BLOOD CELL COUNT 4.95 10^6/uL (4.6-6.2); WHITE BLOOD CELL COUNT,WBC 11.1 10^3/uL (5.0-10.0)
[2023-05-17 23:38] VITALS: BP 149/90; PULSE 99
[2023-05-17 23:48] LABS: A/G RATIO 0.8; ALBUMIN 3.4 g/dL (3.4-5.0); BILIRUBIN TOTAL 0.5 mg/dL (0.2-1.0); BUN/CREATININE RATIO 3.8 (No establ ref range); CALCIUM 9.3 mg/dL (8.5-10.1); CREATININE 1.06 mg/dL (0.70-1.30); EST CRCL DRUG DOSING (CG) 93.73 mL/min; PROTEIN TOTAL,TP 7.8 g/dL (6.4-8.2)
[2023-05-17 23:53] LABS: APPEARANCE,URINE CLEAR (CLEAR); BILIRUBIN,URINE NEGATIVE (NEGATIVE); COLOR,URINE YELLOW (YELLOW); GLUCOSE,URINE NEGATIVE (NEGATIVE); KETONES,URINE NEGATIVE (NEGATIVE); LEUKOCYTE ESTERASE,URINE TRACE (NEGATIVE); NITRITE,URINE NEGATIVE (NEGATIVE); OCCULT BLOOD,URINE NEGATIVE (NEGATIVE); PH,URINE 6.5 (5.0-9.0); PROTEIN,URINE 100 (NEGATIVE)
[2023-05-17 23:55] LABS: AMPHETAMINES,URINE NEGATIVE (NEGATIVE); BARBITURATES,URINE NEGATIVE (NEGATIVE); BENZODIAZEPINE,URINE NEGATIVE (NEGATIVE); MDMA (ECSTASY), URINE NEGATIVE (NEGATIVE); METHADONE,URINE NEGATIVE (NEGATIVE); METHAMPHETAMINES,URINE NEGATIVE (NEGATIVE); OPIATES,URINE NEGATIVE (NEGATIVE); OXYCODONE,URINE NEGATIVE (NEGATIVE); PHENCYCLIDINE,URINE NEGATIVE (NEGATIVE); TCA,URINE NEGATIVE (NEGATIVE)
[2023-05-17] MEDS ORDERED: Lactated Ringers 1,000 ML IV ONE (23:56)
[2023-05-17] MEDS ORDERED: Potassium Chloride 10 MEQ Tab.ER PO ONE (23:56)
[2023-05-17] MEDS ORDERED: Aluminum Hydroxide/Magnesium Hydroxide/Simethicone Susp 30 ML Cup PO ONE (23:57)
[2023-05-18 00:06] LABS: BACTERIA,URINE MANY /HPF (0-FEW/HPF); EPITHELIAL CELLS,URINE FEW /HPF (NOT SEEN); MUCUS,URINE MANY /LPF (NOT SEEN); RBC,URINE 0-5 /HPF (0-5)
== END 2023-05-18 00:47 | disposition home or self-care (01) ==
LOC: DL.ED 23:26
DX: K29.70 Gastritis, unspecified, without bleeding (principal); F10.10 Alcohol abuse, uncomplicated; E87.6 Hypokalemia; K21.9 Gastro-esophageal reflux disease without esophagitis; Z79.01 Long term (current) use of anticoagulants; Z79.899 Other long term (current) drug therapy
CPT/HCPCS: 36415; 80053; 80305; 80307; 81001; 83690; 84484; 85025; 85379; 87086; 93005; 93010; 96361; 96374; 99284; 99285; A9270; J2405; J7120

== ENCOUNTER 2023-06-16 00:43 | Emergency (ER) | payer MEDICAID ==
[2023-06-16 00:56] VITALS: BP 129/75; PULSE 74
== END 2023-06-16 02:15 | disposition home or self-care (01) ==
LOC: DL.ED 00:43
DX: F10.920 Alcohol use, unspecified with intoxication, uncomplicated (principal); Z79.899 Other long term (current) drug therapy; Z79.01 Long term (current) use of anticoagulants
CPT/HCPCS: 93010; 99284

== ENCOUNTER 2023-08-07 11:32 | Emergency (ER) | payer MEDICAID ==
[~2023-08-07 11:32] MED LIST changes: -Lactated Ringers 1,000 ML IV ONE; +Ondansetron 4 MG/2 ML SDV IV ONE; -Ondansetron 4 MG/2 ML SDV IVPUSH ONE; +Pantoprazole 40 MG Vial IVPUSH ONE; +Sodium Chloride 0.9% 1,000 ML IV ONE; +Sodium Chloride 0.9% 10 ML Syringe FLUSH PRN
[2023-08-07 11:51] LABS: BASOPHILS PERCENT AUTO 0.3 % (0.0-1.0); HEMOGLOBIN 10.8 g/dL (14.0-18.0); LYMPHOCYTES PERCENT AUTO 2.5 % (20.5-50.1); MEAN CORPUSCULAR HGB CONC 30.9 g/dL (33.0-35.0); MEAN CORPUSCULAR VOLUME 68.1 fL (80-100); MONOCYTES PERCENT AUTO 4.2 % (2-8); PLATELET COUNT,PLT 409 10^3/uL (150-450); RED BLOOD CELL COUNT 5.14 10^6/uL (4.6-6.2)
[2023-08-07 11:59] VITALS: BP 165/116; PULSE 126
[2023-08-07] MEDS ORDERED: LORazepam 2 MG/ML SDV IVPUSH ONE (12:04)
[2023-08-07] MEDS ORDERED: Metoclopramide 10 MG/2 ML SDV IVPUSH ONE (12:05)
[2023-08-07] MEDS ORDERED: Octreotide 100 MCG/ML SDV IVPUSH ONE (12:05)
[2023-08-07] MEDS ORDERED: Pantoprazole 40 MG Vial IVPUSH ONE (12:05)
[2023-08-07] MEDS ORDERED: Thiamine 100 MG in Sodium Chloride 0.9% 100 ML IV ONE (12:06)
[2023-08-07] MEDS ORDERED: Sodium Chloride 0.9% 10 ML Syringe FLUSH PRN (12:06)
[2023-08-07] MEDS ORDERED: Sodium Chloride 0.9% 1,000 ML IV ONE (12:06)
[2023-08-07 12:10] LABS: PROTHROMBIN TIME 9.8 SEC (9.0-12.0); PTT,PARTIAL THROMBOPLSTIN TIME 22.7 SEC (22.0-34.0)
[2023-08-07 12:15] LABS: A/G RATIO 0.7; ALANINE AMINOTRANSFERASE,ALT 20 U/L (16-63); ALBUMIN 3.5 g/dL (3.4-5.0); ALKALINE PHOSPHATASE 133 U/L (46-116); AMYLASE 248 U/L (25-115); ANION GAP 23.5 mEq/L (7-13); ASPARTATE AMNIOTRANSFERASE,AST 14 U/L (15-37); BILIRUBIN TOTAL 1.2 mg/dL (0.2-1.0); BLOOD UREA NITROGEN,BUN 7 mg/dL (7-18); BUN/CREATININE RATIO 6.6 (No establ ref range); CALCIUM 9.5 mg/dL (8.5-10.1); CARBON DIOXIDE,CO2 24 mmol/L (21-32); CHLORIDE,CL 90 mmol/L (98-107); CREATININE 1.06 mg/dL (0.70-1.30); GLUCOSE RANDOM 175 mg/dL (70-99); LIPASE 21 U/L (16-77); MAGNESIUM 1.2 mg/dL (1.8-2.4); POTASSIUM,K 2.5 mmol/L (3.5-5.1); PROTEIN TOTAL,TP 8.5 g/dL (6.4-8.2); SODIUM,NA 135 mmol/L (136-145)
[2023-08-07] MEDS ORDERED: Pantoprazole 40 MG in Sodium Chloride 0.9% 100 ML IV SCH (12:15)
[2023-08-07 12:16] LABS: ESTIMATED GFR 88 mL/min (>=60)
[2023-08-07] MEDS ORDERED: Magnesium Sulfate/Water 2 GM in Premix Bag 1 BAG IV ONE ×2 (12:20→12:21)
[2023-08-07 12:24] LABS: LACTIC ACID 8.4 mmol/L (0.4-2.0)
[2023-08-07] MEDS ORDERED: Factor IX Complex Human 500 UNIT VIAL IV ONE (12:28)
[2023-08-07] MEDS ORDERED: NS with KCl 40mEq 1,000 ML IV SCH (12:30)
[2023-08-07] MEDS: Octreotide 100 MCG in Sodium Chloride 0.9% 99 ML IV SCH ×2 (13:14→15:03)
[2023-08-07 14:07] LABS: HEMATOCRIT 30.5 % (40.0-54.0); HEMOGLOBIN 9.2 g/dL (14.0-18.0)
[2023-08-07 14:55] LABS: APPEARANCE,URINE CLEAR (CLEAR); BILIRUBIN,URINE NEGATIVE (NEGATIVE); COLOR,URINE YELLOW (YELLOW); GLUCOSE,URINE NEGATIVE (NEGATIVE); KETONES,URINE 40 (NEGATIVE); LEUKOCYTE ESTERASE,URINE NEGATIVE (NEGATIVE); NITRITE,URINE NEGATIVE (NEGATIVE); OCCULT BLOOD,URINE NEGATIVE (NEGATIVE); PH,URINE 7.5 (5.0-9.0); PROTEIN,URINE 30 (NEGATIVE)
[2023-08-07 15:00] LABS: AMPHETAMINES,URINE NEGATIVE (NEGATIVE); BARBITURATES,URINE NEGATIVE (NEGATIVE); BENZODIAZEPINE,URINE NEGATIVE (NEGATIVE); MDMA (ECSTASY), URINE NEGATIVE (NEGATIVE); METHADONE,URINE NEGATIVE (NEGATIVE); METHAMPHETAMINES,URINE NEGATIVE (NEGATIVE); OPIATES,URINE NEGATIVE (NEGATIVE); OXYCODONE,URINE NEGATIVE (NEGATIVE); PHENCYCLIDINE,URINE NEGATIVE (NEGATIVE); TCA,URINE NEGATIVE (NEGATIVE)
[2023-08-07 15:09] LABS: BACTERIA,URINE FEW /HPF (0-FEW/HPF); EPITHELIAL CELLS,URINE FEW /HPF (NOT SEEN); HYALINE CASTS,URINE RARE; MUCUS,URINE OCCASIONAL /LPF (NOT SEEN); RBC,URINE 0-5 /HPF (0-5); WBC,URINE NOT SEEN /HPF (0-5/HPF)
== END 2023-08-07 15:00 ==
LOC: DL.ED 11:32
DX: K92.2 Gastrointestinal hemorrhage, unspecified (principal); I26.99 Other pulmonary embolism without acute cor pulmonale; F10.10 Alcohol abuse, uncomplicated; Z79.01 Long term (current) use of anticoagulants; F17.210 Nicotine dependence, cigarettes, uncomplicated; K21.9 Gastro-esophageal reflux disease without esophagitis; Z79.899 Other long term (current) drug therapy
CPT/HCPCS: 36415; 36430; 80053; 80305-QW; 81001; 82140; 82150; 82271; 83605; 83690; 83735; 84145; 85014; 85018; 85025; 85610; 85730; 86850; 86900; 86901; 86920; 86922; 96361; 96365; 96366; 96368; 96375; 96376; 99285; 99285-25; C9113; J2060; J2354-JA; J2405; J2765; J3411; J3475; J3480; J3490; J7030; J7168; P9017

== ENCOUNTER 2023-08-11 09:29 | Emergency (ER) | payer MEDICAID ==
[2023-08-11] MEDS ORDERED: Sodium Chloride 0.9% 10 ML Syringe FLUSH PRN (10:13)
[2023-08-11] MEDS ORDERED: Sodium Chloride 0.9% 1,000 ML IV ONE (10:13)
[2023-08-11] MEDS ORDERED: Ketorolac 30 MG/ML SDV IVPUSH ONE (10:14)
[2023-08-11] MEDS ORDERED: Ondansetron 4 MG/2 ML SDV IVPUSH ONE (10:14)
[2023-08-11 10:46] VITALS: BP 132/93; PULSE 83
[2023-08-11] MEDS ORDERED: Acetaminophen 500 MG Tab PO ONE (10:54)
[2023-08-11 11:07] LABS: CORONAVIRUS COVID-19 NAA NEGATIVE (NEGATIVE); INFLUENZA A NAA POSITIVE (NEGATIVE); INFLUENZA B NAA NEGATIVE (NEGATIVE); RESPIRATORY SYNCYTIAL VIR NAA NEGATIVE (NEGATIVE)
== END 2023-08-11 11:25 | disposition home or self-care (01) ==
LOC: DL.ED 09:29
DX: J10.1 Influenza due to other identified influenza virus with other respiratory manifestations (principal); F17.210 Nicotine dependence, cigarettes, uncomplicated; Z20.822 Contact with and (suspected) exposure to COVID-19
CPT/HCPCS: 0241U; 87081; 87430; 96361; 96374; 96375; 99283; 99284-25; A9270-GY; J1885; J2405; J3490; J7030

== ENCOUNTER 2023-09-27 11:48 | Emergency (ER) | payer MEDICAID, OTHER ==
[2023-09-27] MEDS: Sodium Chloride 0.9% 1,000 ML IV ONE (11:30)
[2023-09-27 11:31] LABS: BASOPHILS PERCENT AUTO 0.3 % (0.0-1.0); HEMATOCRIT 36.3 % (40.0-54.0); HEMOGLOBIN 11.8 g/dL (14.0-18.0); LYMPHOCYTES PERCENT AUTO 2.6 % (20.5-50.1); MEAN CORPUSCULAR HGB CONC 32.5 g/dL (33.0-35.0); MEAN CORPUSCULAR VOLUME 67.7 fL (80-100); MONOCYTES PERCENT AUTO 6.5 % (2-8); NEUTROPHILS PERCENT AUTO 90.6 % (42.2-75.2); PLATELET COUNT,PLT 444 10^3/uL (150-450); RED BLOOD CELL COUNT 5.36 10^6/uL (4.6-6.2)
[2023-09-27] MEDS: Pantoprazole 40 MG Vial IVPUSH ONE (11:31)
[2023-09-27] MEDS: Octreotide 100 MCG/ML SDV IVPUSH ONE (11:34)
[2023-09-27] MEDS: Ondansetron 4 MG/2 ML SDV IVPUSH ONE (11:37)
[2023-09-27] MEDS: Tranexamic Acid 1,000 MG in Sodium Chloride 0.9% 100 ML IV ONE (11:38)
[2023-09-27] MEDS: Octreotide 100 MCG in Sodium Chloride 0.9% 99 ML IV SCH (11:40)
[2023-09-27] MEDS: Pantoprazole 40 MG in Sodium Chloride 0.9% 100 ML IV SCH (11:41)
[2023-09-27 11:45] LABS: PROTHROMBIN TIME 10.7 SEC (9.0-12.0)
[~2023-09-27 11:48] MED LIST changes: +HYDROmorphone 0.5 MG/0.5 ML Syringe IVPUSH ONE; -Ondansetron 4 MG/2 ML SDV IV ONE; -Pantoprazole 40 MG Vial IVPUSH ONE; -Sodium Chloride 0.9% 1,000 ML IV ONE; -Sodium Chloride 0.9% 10 ML Syringe FLUSH PRN
[2023-09-27 11:49] LABS: A/G RATIO 0.9; ALBUMIN 4.3 g/dL (3.4-5.0); ALKALINE PHOSPHATASE 145 U/L (46-116); ASPARTATE AMNIOTRANSFERASE,AST 75 U/L (15-37); BILIRUBIN TOTAL 2.4 mg/dL (0.2-1.0); BLOOD UREA NITROGEN,BUN 8 mg/dL (7-18); BUN/CREATININE RATIO 5.4 (No establ ref range); CALCIUM 10.5 mg/dL (8.5-10.1); CARBON DIOXIDE,CO2 30 mmol/L (21-32); CHLORIDE,CL 88 mmol/L (98-107); CREATININE 1.49 mg/dL (0.70-1.30); GLUCOSE RANDOM 187 mg/dL (70-99); SODIUM,NA 137 mmol/L (136-145)
[2023-09-27 11:55] LABS: ESTIMATED GFR 59 mL/min (>=60)
[2023-09-27 11:58] LABS: MAGNESIUM 0.9 mg/dL (1.8-2.4)
[2023-09-27 12:03] LABS: ALANINE AMINOTRANSFERASE,ALT 28 U/L (16-63)
[2023-09-27] MEDS: NS with KCl 40mEq 1,000 ML IV SCH (12:20)
[2023-09-27] MEDS: Magnesium Sulfate/Water 2 GM in Premix Bag 1 BAG IV ONE (12:25)
[2023-09-27] MEDS: Sodium Chloride 0.9% 10 ML Syringe FLUSH PRN (12:37)
[2023-09-27 13:31] VITALS: BP 169/104; PULSE 122
== END 2023-09-27 13:45 ==
LOC: DL.ED 11:48
DX: K92.2 Gastrointestinal hemorrhage, unspecified (principal); Z79.01 Long term (current) use of anticoagulants; Z79.899 Other long term (current) drug therapy
CPT/HCPCS: 36415; 80053; 80307; 83735; 85025; 85610; 86850; 86900; 86901; 96365; 96366; 96368; 96375; 99285; C9113; J2354; J2405; J3475; J3480; J3490; J7030

== ENCOUNTER 2023-10-21 12:01 | Emergency (ER) | payer MEDICAID, OTHER ==
[2023-10-21 12:51] LABS: BASOPHILS PERCENT AUTO 0.1 % (0.0-1.0); HEMATOCRIT 37.9 % (40.0-54.0); HEMOGLOBIN 11.8 g/dL (14.0-18.0); LYMPHOCYTES PERCENT AUTO 6.1 % (20.5-50.1); MEAN CORPUSCULAR HEMOGLOBIN 22.1 pg (27.0-34.0); MEAN CORPUSCULAR HGB CONC 31.1 g/dL (33.0-35.0); MONOCYTES PERCENT AUTO 8.1 % (2-8); NEUTROPHILS PERCENT AUTO 85.7 % (42.2-75.2); PLATELET COUNT,PLT 294 10^3/uL (150-450); RED BLOOD CELL COUNT 5.34 10^6/uL (4.6-6.2); WHITE BLOOD CELL COUNT,WBC 13.5 10^3/uL (5.0-10.0)
[2023-10-21] MEDS: MVI, Adult with Vitamin K 10 ML, Folic Acid 1 MG, Thiamine 100 MG in Lactated Ringers 1... IV ONE (12:57)
[2023-10-21] MEDS: Sodium Chloride 0.9% 10 ML Syringe FLUSH PRN (13:06)
[2023-10-21 13:07] LABS: PROTHROMBIN TIME 9.9 SEC (9.0-12.0)
[2023-10-21] MEDS: Ketorolac 30 MG/ML SDV IVPUSH ONE (13:07)
[2023-10-21 13:08] LABS: MDMA (ECSTASY), URINE NEGATIVE (NEGATIVE); METHADONE,URINE NEGATIVE (NEGATIVE); METHAMPHETAMINES,URINE POSITIVE (NEGATIVE); OPIATES,URINE NEGATIVE (NEGATIVE)
[2023-10-21 13:09] LABS: AMPHETAMINES,URINE NEGATIVE (NEGATIVE); BARBITURATES,URINE NEGATIVE (NEGATIVE); BENZODIAZEPINE,URINE NEGATIVE (NEGATIVE); OXYCODONE,URINE NEGATIVE (NEGATIVE); PHENCYCLIDINE,URINE NEGATIVE (NEGATIVE); TCA,URINE NEGATIVE (NEGATIVE)
[2023-10-21 13:10] LABS: A/G RATIO 0.7; ALBUMIN 3.5 g/dL (3.4-5.0); ANION GAP 18.2 mEq/L (7-13); BUN/CREATININE RATIO 6.6 (No establ ref range); C-REACTIVE PROTEIN 1.68 ng/dL (<=0.50); CALCIUM 9.1 mg/dL (8.5-10.1); CREATININE 1.06 mg/dL (0.70-1.30); EST CRCL DRUG DOSING (CG) 93.73 mL/min; MAGNESIUM 1.4 mg/dL (1.8-2.4); POTASSIUM,K 3.2 mmol/L (3.5-5.1); PROTEIN TOTAL,TP 8.3 g/dL (6.4-8.2)
[2023-10-21 13:23] LABS: APPEARANCE,URINE CLEAR (CLEAR); BILIRUBIN,URINE NEGATIVE (NEGATIVE); COLOR,URINE YELLOW (YELLOW); GLUCOSE,URINE NEGATIVE (NEGATIVE); KETONES,URINE TRACE (NEGATIVE); LEUKOCYTE ESTERASE,URINE TRACE (NEGATIVE); NITRITE,URINE NEGATIVE (NEGATIVE); OCCULT BLOOD,URINE NEGATIVE (NEGATIVE); PH,URINE >= 9.0 (5.0-9.0); PROTEIN,URINE 100 (NEGATIVE)
[2023-10-21] MEDS: Metoprolol Tartrate 5 MG/5 ML SDV IVPUSH ONE (13:25)
[2023-10-21 13:36] VITALS: PULSE 110
[2023-10-21 13:36] LABS: BACTERIA,URINE FEW /HPF (0-FEW/HPF); EPITHELIAL CELLS,URINE RARE /HPF (NOT SEEN); MUCUS,URINE MODERATE /LPF (NOT SEEN); RBC,URINE 0-5 /HPF (0-5)
[2023-10-21 13:37] LABS: AMORPHOUS SEDIMENT,URINE FEW /HPF (NOT SEEN)
[2023-10-21] MEDS: cloNIDine 0.1 MG Tab PO ONE (14:08)
[2023-10-21 14:09] VITALS: BP 159/111
[2023-10-21] MEDS: cefTRIAXone 2 GM Vial IVPUSH ONE (14:09)
== END 2023-10-21 14:25 | disposition home or self-care (01) ==
LOC: DL.ED 12:01
DX: J01.00 Acute maxillary sinusitis, unspecified (principal); F15.10 Other stimulant abuse, uncomplicated; Z79.01 Long term (current) use of anticoagulants; Z79.899 Other long term (current) drug therapy
CPT/HCPCS: 36415; 70450; 70486; 80053; 80305-QW; 80307; 81001; 83735; 85025; 85610; 86140; 87086; 96365; 96375; 99284; 99284-25; A9270-GY; J0696; J1885; J3411; J3490; J7120

== ENCOUNTER 2023-10-21 22:03 | Emergency (ER) | payer MEDICAID ==
[2023-10-21] MEDS: Sodium Chloride 0.9% 500 ML IV SCH (22:25)
[2023-10-21] MEDS: diphenhydrAMINE 50 MG/ML SDV IVPUSH ONE (22:26)
[2023-10-21] MEDS: Metoclopramide 10 MG/2 ML SDV IVPUSH ONE (22:26)
[2023-10-21] MEDS: Sodium Chloride 0.9% 10 ML Syringe FLUSH PRN (22:30)
[2023-10-21 22:33] LABS: BASOPHILS PERCENT AUTO 0.2 % (0.0-1.0); EOSINOPHILS PERCENT AUTO 0.2 % (1.0-3.0); HEMATOCRIT 35.3 % (40.0-54.0); HEMOGLOBIN 11.1 g/dL (14.0-18.0); LYMPHOCYTES PERCENT AUTO 11.1 % (20.5-50.1); MEAN CORPUSCULAR HEMOGLOBIN 22.6 pg (27.0-34.0); MEAN CORPUSCULAR HGB CONC 31.4 g/dL (33.0-35.0); MEAN CORPUSCULAR VOLUME 71.7 fL (80-100); MONOCYTES PERCENT AUTO 11.3 % (2-8); NEUTROPHILS PERCENT AUTO 77.2 % (42.2-75.2); PLATELET COUNT,PLT 267 10^3/uL (150-450); RED BLOOD CELL COUNT 4.92 10^6/uL (4.6-6.2); WHITE BLOOD CELL COUNT,WBC 11.6 10^3/uL (5.0-10.0)
[2023-10-21 22:49] VITALS: BP 158/119; PULSE 110
[2023-10-21] MEDS: Iopamidol 612 MG/ML 100 ML Bottle IVPUSH ONE (22:50)
[2023-10-21 22:51] LABS: A/G RATIO 0.69; ALBUMIN 3.1 g/dL (3.4-5.0); ANION GAP 15.3 mEq/L (7-13); BILIRUBIN TOTAL 1.7 mg/dL (0.2-1.0); BUN/CREATININE RATIO 5.2 (No establ ref range); CALCIUM 8.9 mg/dL (8.5-10.1); CREATININE 1.15 mg/dL (0.70-1.30); EST CRCL DRUG DOSING (CG) 86.39 mL/min; MAGNESIUM 1.3 mg/dL (1.8-2.4); POTASSIUM,K 3.3 mmol/L (3.5-5.1); PROTEIN TOTAL,TP 7.6 g/dL (6.4-8.2)
[2023-10-21] MEDS: Haloperidol Lactate 5 MG/ML SDV IVPUSH ONE (22:53)
== END 2023-10-21 23:20 | disposition left against medical advice (07) ==
LOC: DL.ED 22:03
DX: R10.84 Generalized abdominal pain (principal); F15.10 Other stimulant abuse, uncomplicated; Z79.01 Long term (current) use of anticoagulants; Z79.899 Other long term (current) drug therapy
CPT/HCPCS: 36415; 74177; 80053; 82550; 83690; 83735; 84484; 85025; 93005; 93010; 96361; 96374; 96375; 99284; J1200; J1630; J2765; J7040; Q9967; J3490

== ENCOUNTER 2024-03-20 22:39 | Emergency (ER) | payer MEDICAID | END 2024-03-20 23:42 | disposition left against medical advice (07) | LOC: DL.ED 22:39 | DX: Z53.21 Procedure and treatment not carried out due to patient leaving prior to being seen by health care provider (principal) ==

== ENCOUNTER 2024-09-14 12:36 | Emergency (ER) | payer MEDICAID ==
[2024-09-14 13:24] LABS: APPEARANCE,URINE CLEAR (CLEAR); BILIRUBIN,URINE NEGATIVE (NEGATIVE); COLOR,URINE YELLOW (YELLOW); GLUCOSE,URINE NEGATIVE (NEGATIVE); KETONES,URINE NEGATIVE (NEGATIVE); LEUKOCYTE ESTERASE,URINE NEGATIVE (NEGATIVE); NITRITE,URINE NEGATIVE (NEGATIVE); OCCULT BLOOD,URINE NEGATIVE (NEGATIVE); PH,URINE 8.5 (5.0-9.0); PROTEIN,URINE >=300 (NEGATIVE); UROBILINOGEN,URINE 0.2 mg/dL (0.2-1.0)
[2024-09-14 13:28] LABS: HEMATOCRIT 36.6 % (40.0-54.0); HEMOGLOBIN 11.5 g/dL (14.0-18.0); MEAN CORPUSCULAR HEMOGLOBIN 21.1 pg (27.0-34.0); MEAN CORPUSCULAR HGB CONC 31.4 g/dL (33.0-35.0); MEAN CORPUSCULAR VOLUME 67.3 fL (80-100); PLATELET COUNT,PLT 479 10^3/uL (150-450); RED BLOOD CELL COUNT 5.44 10^6/uL (4.6-6.2); WHITE BLOOD CELL COUNT,WBC 22.9 10^3/uL (5.0-10.0)
[2024-09-14] MEDS: MVI, Adult with Vitamin K 10 ML, Folic Acid 1 MG, Thiamine 100 MG in Lactated Ringers 1... IV ONE (13:28)
[2024-09-14] MEDS: Ondansetron 4 MG/2 ML SDV IVPUSH ONE (13:29)
[2024-09-14 13:38] LABS: BACTERIA,URINE OCCASIONAL /HPF (0-FEW/HPF); EPITHELIAL CELLS,URINE RARE /HPF (NOT SEEN); HYALINE CASTS,URINE RARE; MUCUS,URINE FEW /LPF (NOT SEEN); RBC,URINE 0-5 /HPF (0-5); WBC,URINE 0-5 /HPF (0-5/HPF)
[2024-09-14 13:38] LABS: PROTHROMBIN TIME 10.3 SEC (9.0-12.0)
[2024-09-14 13:43] LABS: BASOPHILS PERCENT AUTO 0.1 % (0.0-1.0); LYMPHOCYTES PERCENT AUTO 5.8 % (20.5-50.1); MONOCYTES PERCENT AUTO 10.4 % (2-8); NEUTROPHILS PERCENT AUTO 83.7 % (42.2-75.2)
[2024-09-14 13:44] LABS: A/G RATIO 0.7; ALANINE AMINOTRANSFERASE,ALT 19 U/L (16-63); ALBUMIN 3.5 g/dL (3.4-5.0); ALKALINE PHOSPHATASE 141 U/L (46-116); ANION GAP 8.5 mEq/L (7-13); ASPARTATE AMNIOTRANSFERASE,AST 18 U/L (15-37); BILIRUBIN TOTAL 2.1 mg/dL (0.2-1.0); BLOOD UREA NITROGEN,BUN 14 mg/dL (7-18); BUN/CREATININE RATIO 9.5 (No establ ref range); CALCIUM 9.5 mg/dL (8.5-10.1); CHLORIDE,CL 82 mmol/L (98-107); CREATININE 1.47 mg/dL (0.70-1.30); EST CRCL DRUG DOSING (CG) 70.96 mL/min; GLUCOSE RANDOM 128 mg/dL (70-99); LIPASE 20 U/L (16-77); LYMPHOCYTES PERCENT MAN 4 % (20-50); MAGNESIUM 1.4 mg/dL (1.8-2.4); MONOCYTES PERCENT MAN 6 % (2-8); POTASSIUM,K 2.5 mmol/L (3.5-5.1); PROTEIN TOTAL,TP 8.4 g/dL (6.4-8.2); SEG NEUTROPHILS PERCENT MAN 90 % (42-75); SODIUM,NA 131 mmol/L (136-145)
[2024-09-14 13:45] LABS: CARBON DIOXIDE,CO2 43 mmol/L (21-32); ESTIMATED GFR 59 mL/min (>=60); ETHANOL BLOOD MEDICAL < 3 mg/dL (0); STOMATOCYTES 3+ MARKED
[2024-09-14] MEDS: Pantoprazole 40 MG Vial IVPUSH ONE (14:16)
[2024-09-14] MEDS: Iopamidol 612 MG/ML 100 ML Bottle IVPUSH ONE (14:26)
[2024-09-14] MEDS: Lactated Ringers 1,000 ML IV ONE (14:30)
[2024-09-14] MEDS: POTASSIUM CHLORIDE IV ONE (14:44)
[2024-09-14] MEDS: cefTRIAXone 1 GM Vial IVPUSH ONE (14:46)
[2024-09-14] MEDS: Potassium Chloride 20 MEQ in Premix Bag 1 BAG IV ONE (14:47)
[2024-09-14] MEDS: Magnesium Sulf/Wat 4 GM/100 mL 4 GM in Premix Bag 1 BAG IV ONE (15:08)
[2024-09-14 15:41] LABS: AMPHETAMINES,URINE NEGATIVE (NEGATIVE); BARBITURATES,URINE NEGATIVE (NEGATIVE); BENZODIAZEPINE,URINE NEGATIVE (NEGATIVE); MDMA (ECSTASY), URINE NEGATIVE (NEGATIVE); METHADONE,URINE NEGATIVE (NEGATIVE); METHAMPHETAMINES,URINE NEGATIVE (NEGATIVE); OPIATES,URINE NEGATIVE (NEGATIVE); OXYCODONE,URINE NEGATIVE (NEGATIVE); PHENCYCLIDINE,URINE NEGATIVE (NEGATIVE); TCA,URINE NEGATIVE (NEGATIVE)
[2024-09-14 17:06] VITALS: BP 123/93; PULSE 100
== END 2024-09-14 17:00 ==
LOC: DL.ED 12:36
DX: A41.9 Sepsis, unspecified organism (principal); R65.20 Severe sepsis without septic shock; N17.9 Acute kidney failure, unspecified; K92.2 Gastrointestinal hemorrhage, unspecified; E86.0 Dehydration; E87.6 Hypokalemia; E83.42 Hypomagnesemia; E87.1 Hypo-osmolality and hyponatremia; D64.9 Anemia, unspecified; F17.210 Nicotine dependence, cigarettes, uncomplicated; Z79.01 Long term (current) use of anticoagulants; Z79.899 Other long term (current) drug therapy
CPT/HCPCS: 36415; 71045; 74177; 80053; 80305; 80307; 81001; 82272; 82947; 83605; 83690; 83735; 84484; 85025; 85610; 86850; 86900; 86901; 87040; 93005; 93010; 96365; 96366; 96367; 96368; 96375; 99285; J0696; J2405; J2470; J3411; J3475; J3480; J7120; Q9967; J3490